=== PATIENT | female | born 1940 | race Caucasian/White ===

== ENCOUNTER 2016-10-21 12:04 | Inpatient (IN) | payer MEDICARE ==
[~2016-10-21] VITALS: Ht 175.3 cm; Wt 64.4 kg
[2016-10-21] MEDS ORDERED: IV NS 0.9% 500 ML IV ONE (12:30)
[2016-10-21] MEDS ORDERED: IV SET PRIMARY 1 EA INFUS.SET MC ONE (12:30)
[2016-10-21] MEDS ORDERED: IV NS 0.9% 500 ML BAG IV ONE (12:30)
[2016-10-21 12:55] LABS: ANION GAP 15 (5-14); CALCIUM, SERUM 8.7 mg/dL (8.5-10.1); CARBON DIOXIDE 27 mmol/L (21-32); CHLORIDE 104 mmol/L (98-107); GLUCOSE 75 mg/dL (74-106); POTASSIUM 4.4 mmol/L (3.5-5.1); SODIUM SERUM 141 mmol/L (136-145); UREA NITROGEN, BLOOD 12 mg/dL (7-18)
[2016-10-21 13:02] LABS: HEMATOCRIT 38 % (33-45); HEMOGLOBIN 12.6 g/dL (11.5-14.8); MEAN CORPUSCULAR HEMOGLOBIN 32 PG (26.0-33.0); MEAN CORPUSCULAR HGB CONC 33 g/dl (31.0-36.0); MEAN CORPUSCULAR VOLUME 97 fL (82-100); PLATELET COUNT (AUTO) 302 /CMM (150-450); WHITE BLOOD COUNT (AUTO) 8.8 K/uL (4.3-11.0)
[2016-10-21 13:03] LABS: ACETAMINOPHEN 8 ug/ml (10-30); ALANINE AMINOTRANSFERASE 54 U/L (12-78); ALBUMIN 3.1 g/dL (3.4-5.0); ASPARTATE AMINOTRANSFERASE 34 U/L (15-37); BILIRUBIN,DIRECT 0.5 mg/dL (0.0-0.2); BILIRUBIN,TOTAL 0.9 mg/dL (0.2-1.0); INDIRECT BILIRUBIN 0.4 mg/dL (0.0-1.1); TOTAL PROTEIN, SERUM 6.2 g/dL (6.4-8.2)
[2016-10-21 13:04] LABS: SALICYLATE < 0.2 mg/dL (2.8-20.0)
[2016-10-21 13:18] LABS: KETONES,URINE Trace (NEGATIVE); LEUKOCYTE ESTERASE ,URINE Negative (NEGATIVE); PH,URINE 5.5 (5.0-8.0)
[2016-10-21 13:21] LABS: ADD UA MICROSCOPIC YES
[2016-10-21 13:37] LABS: CANNABINOID, URINE POSITIVE (NEGATIVE); PHENCYCLIDINE SCREEN,URINE NEGATIVE (NEGATIVE)
[2016-10-21 14:28] LABS: LYMPHOCYTES % (MANUAL) 13 % (16-48); PLATELET ESTIMATE ADEQUATE
[2016-10-21 14:29] LABS: ANISOCYTOSIS 1+
[2016-10-21 14:37] LABS: ADD URINE CULTURE YES; RBC,URINE 0-3 /HPF (0-2); WBC,URINE 0-3 /HPF (0-3)
[2016-10-21 16:00] VITALS: BP 160/73
[2016-10-21] MEDS ORDERED: MAGNESIUM HYDROXIDE 30 ML UDC PO PRN (16:00)
[2016-10-21] MEDS ORDERED: MAG HYDROX/AL HYDROX/SIMETH 30 ML UDC PO PRN (16:00)
[2016-10-21] MEDS ORDERED: LORAZEPAM 0.5 MG TABLET PO PRN (16:00)
[2016-10-21] MEDS ORDERED: ATEN50TA PO (16:01)
[2016-10-21] MEDS ORDERED: PROGESTERONE PO (16:01)
[2016-10-21] MEDS ORDERED: LANS30CA56 PO (16:01)
[2016-10-21] MEDS ORDERED: OXYC-162 PO (16:01)
[2016-10-21] MEDS ORDERED: ESTR0.5T PO (16:01)
[2016-10-21 18:32] VITALS: BP 150/70
[2016-10-21] MEDS: ATENOLOL 50 MG TABLET PO SCH (18:32)
[2016-10-21 20:00] VITALS: BP_SYST 137; BP_SYST 157; BP_DIAS 71; BP_DIAS 88
[2016-10-21] MEDS: ZOLPIDEM TARTRATE 5 MG TABLET PO PRN (22:31)
[2016-10-22 08:00] VITALS: BP 146/62
[2016-10-22 08:18] LABS: ALBUMIN 2.4 g/dL (3.4-5.0); CALCIUM, SERUM 8.6 mg/dL (8.5-10.1); CREATININE 0.8 mg/dL (0.6-1.3); POTASSIUM 3.8 mmol/L (3.5-5.1)
[2016-10-22] MEDS ORDERED: PROGESTERONE,MICRONIZED 100 MG CAPSULE PO SCH ×2 (09:00)
[2016-10-22] MEDS ORDERED: ATENOLOL 50 MG TABLET PO SCH (09:00)
[2016-10-22] MEDS ORDERED: Medication Not On Formulary EA (Lansoprazole 30 MG) PO SCH (09:00)
[2016-10-22] MEDS: ESTRADIOL 1 MG TABLET PO SCH (10:04)
[2016-10-22] MEDS: PANTOPRAZOLE 40 MG TABLET.DR PO SCH (10:05)
[2016-10-22] MEDS: ATENOLOL 50 MG TABLET PO SCH ×2 (10:08→17:41)
[2016-10-22] MEDS ORDERED: Z GUARD REMEDY 2 OZ OINT TP PRN (11:00)
[2016-10-22] MEDS: CLOTRIMAZOLE/BETAMETASONE DIPROPIONATE 15 GM TUBE TP SCH ×2 (11:00→17:36)
[2016-10-22] MEDS: Z GUARD REMEDY 2 OZ OINT TP SCH ×2 (11:00→17:42)
[2016-10-22 16:00] VITALS: BP 134/73
[2016-10-22 18:32] VITALS: BP 134/73
[2016-10-22 18:44] VITALS: BP 134/73
[2016-10-22 20:00] VITALS: BP 147/67
[2016-10-22] MEDS: ZOLPIDEM TARTRATE 5 MG TABLET PO PRN (21:04)
[2016-10-22] MEDS ORDERED: CLONIDINE HCL 0.1 MG TABLET PO ONE (22:00)
[2016-10-23] MEDS: ZOLPIDEM TARTRATE 5 MG TABLET PO PRN ×2 (01:12→23:38)
[2016-10-23] MEDS: ACETAMINOPHEN 325 MG TABLET PO PRN ×2 (03:22→23:39)
[2016-10-23] MEDS: Z GUARD REMEDY 2 OZ OINT TP SCH ×2 (05:35→17:39)
[2016-10-23] MEDS: CLOTRIMAZOLE/BETAMETASONE DIPROPIONATE 15 GM TUBE TP SCH ×2 (05:36→17:40)
[2016-10-23 07:53] LABS: CHOLESTEROL 206 mg/dL (<200); HDL CHOLESTEROL 117 mg/dL (40-60); LDL 61 mg/dL (0-99); TRIGLYCERIDES 78 mg/dL (30-150)
[2016-10-23 08:00] VITALS: BP 135/53
[2016-10-23] MEDS: ATENOLOL 50 MG TABLET PO SCH ×2 (09:06→17:29)
[2016-10-23] MEDS: PANTOPRAZOLE 40 MG TABLET.DR PO SCH (09:06)
[2016-10-23] MEDS: DULOXETINE HCL 30 MG CAPSULE.DR PO SCH (09:06)
[2016-10-23] MEDS: ESTRADIOL 1 MG TABLET PO SCH (09:08)
[2016-10-23 16:09] VITALS: BP 139/66
[2016-10-23 19:55] VITALS: BP 132/67
[2016-10-24] MEDS: CLOTRIMAZOLE/BETAMETASONE DIPROPIONATE 15 GM TUBE TP SCH ×2 (05:34→17:12)
[2016-10-24] MEDS: Z GUARD REMEDY 2 OZ OINT TP SCH ×2 (05:34→17:12)
[2016-10-24 08:00] VITALS: BP 140/75
[2016-10-24] MEDS: DULOXETINE HCL 30 MG CAPSULE.DR PO SCH (08:44)
[2016-10-24] MEDS: PANTOPRAZOLE 40 MG TABLET.DR PO SCH (08:45)
[2016-10-24] MEDS: ATENOLOL 50 MG TABLET PO SCH ×2 (08:45→17:11)
[2016-10-24] MEDS: ESTRADIOL 1 MG TABLET PO SCH (08:49)
[2016-10-24] MEDS: ACETAMINOPHEN 325 MG TABLET PO PRN (12:23)
[2016-10-24 16:17] VITALS: BP 134/65
[2016-10-24] MEDS: NITROFURANTOIN/NITROFURAN MAC 100 MG CAPSULE PO SCH ×2 (17:13→21:46)
[2016-10-24 19:56] VITALS: BP 167/69
[2016-10-24] MEDS ORDERED: CLONIDINE HCL 0.1 MG TABLET ONE (22:37)
[2016-10-24] MEDS ORDERED: CLONIDINE HCL 0.1 MG TABLET PO ONE (23:00)
[2016-10-25] MEDS: Z GUARD REMEDY 2 OZ OINT TP SCH ×2 (06:00→17:13)
[2016-10-25] MEDS: CLOTRIMAZOLE/BETAMETASONE DIPROPIONATE 15 GM TUBE TP SCH ×2 (06:00→17:13)
[2016-10-25 08:10] VITALS: BP 151/80
[2016-10-25] MEDS: NITROFURANTOIN/NITROFURAN MAC 100 MG CAPSULE PO SCH ×2 (08:27→21:05)
[2016-10-25] MEDS: DULOXETINE HCL 30 MG CAPSULE.DR PO SCH (08:27)
[2016-10-25] MEDS: ATENOLOL 50 MG TABLET PO SCH ×2 (08:28→17:15)
[2016-10-25] MEDS: ESTRADIOL 1 MG TABLET PO SCH (08:29)
[2016-10-25] MEDS: PANTOPRAZOLE 40 MG TABLET.DR PO SCH (08:34)
[2016-10-25] MEDS ORDERED: LEVOFLOXACIN (750 MG) 750 MG TABLET PO SCH (13:00)
[2016-10-25 16:28] VITALS: BP 146/71
[2016-10-25 20:00] VITALS: BP 152/74
[2016-10-25 20:19] VITALS: BP 152/74
[2016-10-25] MEDS: ZOLPIDEM TARTRATE 5 MG TABLET PO PRN (23:42)
[2016-10-26] MEDS: CLOTRIMAZOLE/BETAMETASONE DIPROPIONATE 15 GM TUBE TP SCH (05:28)
[2016-10-26] MEDS: Z GUARD REMEDY 2 OZ OINT TP SCH (05:28)
[2016-10-26] MEDS: ACETAMINOPHEN 325 MG TABLET PO PRN (06:02)
[2016-10-26] MEDS: PANTOPRAZOLE 40 MG TABLET.DR PO SCH (06:37)
[2016-10-26] MEDS: NITROFURANTOIN/NITROFURAN MAC 100 MG CAPSULE PO SCH (08:26)
[2016-10-26 08:27] VITALS: BP 143/78
[2016-10-26] MEDS: DULOXETINE HCL 30 MG CAPSULE.DR PO SCH (08:27)
[2016-10-26] MEDS: ATENOLOL 50 MG TABLET PO SCH (08:27)
[2016-10-26] MEDS: ESTRADIOL 1 MG TABLET PO SCH (08:29)
== END 2016-10-26 11:15 | disposition home or self-care (01) | DRG 881 ==
LOC: ER 12:05 → GPS 14:54
PROVIDERS: ADMIT Psychiatry & Neurology Psychiatry; ATTEND Student in an Organized Health Care Education/Training Program
DX: F32.9 Major depressive disorder, single episode, unspecified (principal); N39.0 Urinary tract infection, site not specified; S32.10XA Unspecified fracture of sacrum, initial encounter for closed fracture; B96.20 Unspecified Escherichia coli [E. coli] as the cause of diseases classified elsewhere; F11.10 Opioid abuse, uncomplicated; F12.20 Cannabis dependence, uncomplicated; F10.10 Alcohol abuse, uncomplicated; W19.XXXA Unspecified fall, initial encounter; Y92.009 Unspecified place in unspecified non-institutional (private) residence as the place of occurrence of the external cause; R29.6 Repeated falls; I10 Essential (primary) hypertension; F03.90 Unspecified dementia, unspecified severity, without behavioral disturbance, psychotic disturbance, mood disturbance, and anxiety; Y90.5 Blood alcohol level of 100-119 mg/100 ml; R74.8 Abnormal levels of other serum enzymes; M17.0 Bilateral primary osteoarthritis of knee
CPT/HCPCS: 36415; 70450-TC; 71010-TC; 72220-TC; 80048-TC; 80053-TC; 80061-TC; 80076-TC; 80305; 81000-TC; 85025-TC; 87081-TC; 87086-TC; 87186-TC; A4606; A6402; G6038-TC; G6039-TC; G6040-TC; J7040; Z7610

== ENCOUNTER 2018-05-26 19:25 | Emergency (ER) | payer MEDICARE ==
[~2018-05-26] VITALS: Ht 152.4 cm; Wt 70.3 kg
[~2018-05-26 19:25] MED LIST: ATEN50TA PO; ESTR0.5T PO; LANS30CA56 PO; OXYC-162 PO; PROGESTERONE PO
[2018-05-26 19:30] VITALS: BP 148/64
--- NOTE | 2018-05-26 20:15 | NUR ---
CALLED [facility] FOR S TRANSPORT. TRIP #[id number]. ETA 20-30 MINUTES.
--- NOTE | 2018-05-26 20:46 | NUR ---
AMBULANCE TRANSPORT AT BEDSIDE REPORT GIVEN TO EMT.
== END 2018-05-26 21:00 | disposition home or self-care (01) ==
LOC: ER 19:26
DX: S00.12XA Contusion of left eyelid and periocular area, initial encounter (principal); I10 Essential (primary) hypertension; Z88.0 Allergy status to penicillin; Z88.2 Allergy status to sulfonamides; Z60.2 Problems related to living alone; W01.0XXA Fall on same level from slipping, tripping and stumbling without subsequent striking against object, initial encounter; Y93.89 Activity, other specified; Y92.89 Other specified places as the place of occurrence of the external cause; Y99.8 Other external cause status
CPT/HCPCS: 99283; A4606; Z7610

== ENCOUNTER 2019-08-14 05:04 | Inpatient (IN) | payer MEDICARE ==
[~2019-08-14] VITALS: Ht 175.3 cm; Wt 69.9 kg
[2019-08-14] MEDS ORDERED: IV NS 0.9% 500 ML IV ONE (05:30)
--- NOTE | 2019-08-14 05:36 | NUR ---
PT BIB RA FROM HOME DUE TO A FALL. PT LIVES BY HERSELF AT HOME AND [facility] WILL COME AND CHECK. NEIGHBORS CALLED 911 TO FIND PATIENT ON THE FLOOR ON HER BACK FOR ALMOST 36 HOURS,PER EMS REPORT. PT STATES THAT SHE HAD FALLEN AT HOME DUE TO LOSS OF BALANCE AND LANDED BUTLER FIRST AND LANDED ON HER BACK. LACERATION NOTED ON RIGHT BUTLER, NOT BLEEDING. PT STATES THAT SHE DID NOT HIT HER HEAD NOR HAD LOSS OF CONSCIOUSNESS. AAOX4. NO SOB. BREATHING EVENLY AND UNLABORED. CONNECTED TO MONITOR.
[2019-08-14 05:39] LABS: HEMATOCRIT 32 % (33-45); MONOCYTES # (AUTO) 0.5 /CMM (0.1-1.30); NEUTROPHILS # (AUTO) 0.1 /CMM (1.8-8.9)
[2019-08-14 05:44] LABS: BASOPHILS % (AUTO) 0.3 % (0.0-2.0); EOSINOPHILS % (AUTO) 9.6 % (0.0-6.0); HEMOGLOBIN 10.9 g/dL (11.5-14.8); MEAN CORPUSCULAR HGB CONC 34 g/dl (31.0-36.0); MEAN CORPUSCULAR VOLUME 113 fL (82-100); MONOCYTES % (AUTO) 26.5 % (2.0-12.0); NEUTROPHILS % (AUTO) 6.6 % (43.0-81.0); PLATELET COUNT (AUTO) 171 /CMM (150-450); RED BLOOD CELL COUNT(AUTO) 2.82 MIL/uL (4.0-5.2)
[2019-08-14 05:47] LABS: WHITE BLOOD COUNT (AUTO) 1.8 K/uL (4.3-11.0)
[2019-08-14 05:49] LABS: CALCIUM, SERUM 9.5 mg/dL (8.5-10.1); CARBON DIOXIDE 27 mmol/L (21-32); CHLORIDE 102 mmol/L (98-107); CREATININE 0.8 mg/dL (0.6-1.3); GLUCOSE 129 mg/dL (74-106); SODIUM SERUM 138 mmol/L (136-145); UREA NITROGEN, BLOOD 7 mg/dL (7-18)
[2019-08-14 05:50] LABS: POTASSIUM 2.7 mmol/L (3.5-5.1)
--- NOTE | 2019-08-14 06:05 | NUR ---
PEER FINANCIAL COUNSELOR AT BEDSIDE FOR XRAY
[2019-08-14 06:06] LABS: CREATINE KINASE, TOTAL 95 U/L (26-192)
[2019-08-14] MEDS ORDERED: POTASSIUM CHLORIDE 20 MEQ TAB.PRT.SR PO ONE ×2 (06:28→06:30)
[2019-08-14 06:38] LABS: MONOCYTES % (MANUAL) 10 % (0-11.0)
--- NOTE | 2019-08-14 06:39 | NUR ---
SPOKE W/ NURSING DISTRICT CUSTOMS DIRECTOR REGARDING PATIENT ADMISSION. AWAITING [facility]'S CALLBACK.
[2019-08-14 06:46] LABS: BAND % (MANUAL) 0 % (0.0-5.0); EOSINOPHILS % (MANUAL) 8 % (0-4); LYMPHOCYTES % (MANUAL) 71 % (16-48); NEUTROPHILS % (MANUAL) 11 (42-76)
[2019-08-14] MEDS ORDERED: ONDANSETRON HCL/PF 4 MG/2 ML VIAL IVP PRN (08:00)
[2019-08-14] MEDS ORDERED: Z GUARD REMEDY 2 OZ OINT TP PRN (08:00)
[2019-08-14] MEDS ORDERED: MAG HYDROX/AL HYDROX/SIMETH 30 ML UDC PO PRN (08:00)
[2019-08-14] MEDS ORDERED: ACETAMINOPHEN 325 MG TABLET PO PRN (08:00)
[2019-08-14 08:09] LABS: BILIRUBIN,URINE SMALL (NEGATIVE); BLOOD, URINE Small Ery/uL (NEGATIVE); KETONES,URINE Trace (NEGATIVE); LEUKOCYTE ESTERASE ,URINE Trace (NEGATIVE); NITRITE, URINE Positive (NEGATIVE); PH,URINE 5.5 (5.0-8.0); PROTEIN,URINE Trace mg/dl (NEGATIVE); UGLUCOSE Negative (NEGATIVE); UROBILINOGEN,URINE 0.2 EU/dL (0.2)
[2019-08-14 08:15] LABS: APPEARANCE,URINE HAZY (CLEAR); COLOR,URINE DARK YELLOW (YELLOW)
[2019-08-14 08:16] LABS: BACTERIA,URINE 2+ /HPF (None Seen); SQUAMOUS EPITHELIAL CELL,UR Moderate /HPF (None Seen)
--- NOTE | 2019-08-14 08:39 | NUR ---
REPORT GIVEN TO JERE OAKLEY RN FOR CARLOS.
[2019-08-14 09:00] VITALS: BP 137/60
[2019-08-14] MEDS ORDERED: Medication Not On Formulary EA (Lansoprazole 30 MG) PO SCH (09:00)
[2019-08-14] MEDS ORDERED: PROGESTERONE 100 MG PO SCH (09:00)
[2019-08-14 09:07] VITALS: BP 137/60
--- NOTE | 2019-08-14 09:10 | NUR ---
PATIENT TRANSFERRED TO ROOM 114-1 VIA ACLS PROTOCOL. PATIENT IN STABLE CONDITION.
--- NOTE | 2019-08-14 09:15 | NUR ---
RN NOTES ADMITTED PATIENT FROM ER, DIAGNOSIS S/P GLF AND WEAKNESS, AOX4, PER ER, PAREMEDICS FOUND PATIENT ON THE GROUND AT HOME FOR ALMOST 36 HOURS. ON ROOM AIR, NO SOB, RESPIRATION UNLABORED, SINUS RHYTHM ON MONITOR, LEFT AC G 18, FLUSHES WELL, SITE CLEAR. SEE NURSING NOTES FOR SKIN ISSUES, PHOTOS TAKEN, CARDIAC DIET. UNIT ORIENTATION DONE AND USE OF CALL LIGHT, INSTRUCTED TO CALL FOR ASSIST. BED LOW LOCKED, CALL LIGHT WITHIN REACH, WILL CONTINUE TO MONITOR.
[2019-08-14] MEDS: ESTRADIOL 1 MG TABLET PO SCH (10:09)
[2019-08-14] MEDS: ATENOLOL 50 MG TABLET PO SCH ×2 (10:09→16:49)
[2019-08-14] MEDS: HYDROCODONE/APAP 5/325MG 1 EACH TABLET PO PRN ×2 (10:28→21:56)
[2019-08-14] MEDS ORDERED: ESZO3TAB39 PO (12:25)
[2019-08-14] MEDS ORDERED: METH2.5T14 PO (12:25)
[2019-08-14] MEDS ORDERED: HYDR-4037 PO (12:25)
[2019-08-14] MEDS ORDERED: FURO20TA4 PO (12:25)
[2019-08-14] MEDS ORDERED: MELA5TAB PO (12:25)
[2019-08-14] MEDS ORDERED: MORPHINE SULFATE INJ 2 MG/ML DISP.SYRIN IV ONE (13:30)
[2019-08-14 16:00] VITALS: BP 125/87
[2019-08-14] MEDS: LEVOFLOXACIN (500MG) 500 MG TABLET PO SCH (16:48)
--- NOTE | 2019-08-14 18:28 | NUR ---
RN NOTES ALL NEEDS MET FOR NOW. PT RESTING IN BED, VITAL SIGNS STABLE. NOT IN ANY DISTRESS. NO OTHER SIGNIFICANT CHANGE IN CONDITION. CALL LIGHT WITHIN REACH, WILL ENDORSE TO NEXT SHIFT FOR CARLOS.
[2019-08-14 20:00] VITALS: BP 112/67
--- NOTE | 2019-08-14 20:37 | NUR ---
RN OPENING NOTES RECEIVED REPORT FROM NIMA YADAV. PATIENT A/A/O X2-3, ABLE TO VERBALIZE NEEDS. BREATHING EVEN & UNLABORED, TOLERATING ROOM AIR. DENIES ANY SOB OR DIFFICULTY BREATHING. ON TELE W/ SINUS SONY, HR 50S. LEFT AC IV INTACT & PATENT W/ DRESSING CDI, SALINE LOCKED. DENIES ANY PAIN OR DISCOMFORT @ THIS TIME. SAFETY MEASURES IN PLACE W/ SIDE RAILS UP & BED ALARM ON. CALL LIGHT PLACED WITHIN REACH & INSTRUCTED TO CALL FOR ASSISTANCE. WILL CONTINUE TO MONITOR.
[2019-08-14] MEDS ORDERED: Melatonin 5 MG PO SCH (22:00)
[2019-08-14] MEDS ORDERED: ESZOPICLONE PO SCH (22:00)
--- NOTE | 2019-08-14 22:50 | NUR ---
DIETARY ASSISTANT NOTES PATIENT HAVING DIFFICULTY SLEEPING & REQUESTED FOR AMBIEN. PER PATIENT, SHE TAKES AMBIEN @ HOME. SPOKE TO DR. MCCARTHY & RECEIVED NEW ORDER FOR AMBIEN 5MG PRN. NEW ORDER NOTED & CARRIED OUT.
[2019-08-15] VITALS: BP 109/58
[2019-08-15] MEDS: ZOLPIDEM TARTRATE 5 MG TABLET PO PRN ×2 (02:50→20:49)
[2019-08-15 04:00] VITALS: BP_SYST 109; BP_SYST 122; BP_DIAS 58; BP_DIAS 67
[2019-08-15 06:16] LABS: BASOPHILS % (AUTO) 0.2 % (0.0-2.0); EOSINOPHILS % (AUTO) 9.6 % (0.0-6.0); HEMATOCRIT 30 % (33-45); HEMOGLOBIN 10.2 g/dL (11.5-14.8); LYMPHOCYTES # (AUTO) 1.4 /CMM (0.8-4.8); LYMPHOCYTES % (AUTO) 54.5 % (20.0-44.0); MEAN CORPUSCULAR HGB CONC 34 g/dl (31.0-36.0); MEAN CORPUSCULAR VOLUME 113 fL (82-100); MONOCYTES # (AUTO) 0.7 /CMM (0.1-1.30); NEUTROPHILS # (AUTO) 0.2 /CMM (1.8-8.9); NEUTROPHILS % (AUTO) 8.7 % (43.0-81.0); PLATELET COUNT (AUTO) 273 /CMM (150-450); RED BLOOD CELL COUNT(AUTO) 2.62 MIL/uL (4.0-5.2); WHITE BLOOD COUNT (AUTO) 2.6 K/uL (4.3-11.0)
[2019-08-15 06:55] LABS: BILIRUBIN,TOTAL 0.4 mg/dL (0.2-1.0); CALCIUM, SERUM 8.4 mg/dL (8.5-10.1); CREATININE 0.9 mg/dL (0.6-1.3); PHOSPHORUS 1.9 mg/dL (2.5-4.9)
[2019-08-15 06:56] LABS: ALBUMIN 2.3 g/dL (3.4-5.0); BILIRUBIN,DIRECT 0.2 mg/dL (0.0-0.2); TOTAL PROTEIN, SERUM 5.8 g/dL (6.4-8.2)
[2019-08-15 07:03] LABS: MAGNESIUM 1.1 mg/dL (1.8-2.4); POTASSIUM 2.8 mmol/L (3.5-5.1)
[2019-08-15 07:13] LABS: THYROID STIMULATING HORMONE 3.665 uIU/mL (0.358-3.74)
[2019-08-15 07:41] LABS: BAND % (MANUAL) 2 % (0.0-5.0); EOSINOPHILS % (MANUAL) 10 % (0-4); LYMPHOCYTES % (MANUAL) 48 % (16-48); MONOCYTES % (MANUAL) 28 % (0-11.0); NEUTROPHILS % (MANUAL) 12 (42-76)
[2019-08-15 08:00] VITALS: BP 134/71
--- NOTE | 2019-08-15 08:00 | NUR ---
TELE1/RN AM SHIFT INITIAL NOTES RECEIVED PT AWAKE IN BED, A/O X 2-3 FORGETFUL AT TIMES, DENIES ANY SYMPTOMS, NO ACUTE CHANGE OF CONDITION NOTED. ON ROOM AIR SATURATING @ 98%, RESPIRATIONS EVEN & UNLABORED, LUNG SOUNDS CLEAR. ON TELE WITH SINUS RHYTHM, HR 70. IV SITE FLUSHED, PATENT, SL. PT PLACED ON NPO AT THIS TIME FOR A COMPLETE ABDOMINAL ULTRASOUND. PT IS AWARE OF THE PROCEDURE, COOPERATIVE, COMFORTABLE. SCHEDULED AM MEDS TO BE GIVEN AFTER PROCEDURE. CL WITHIN REACHED AND SAFETY MAINTAINED. ON GOING MONITORING.
[2019-08-15] MEDS: PANTOPRAZOLE 40 MG TABLET.DR PO SCH (09:13)
[2019-08-15] MEDS: ATENOLOL 50 MG TABLET PO SCH ×2 (09:14→16:18)
[2019-08-15] MEDS: MAGNESIUM OXIDE 400 MG TABLET PO SCH ×2 (09:14→16:18)
[2019-08-15] MEDS: FUROSEMIDE 20 MG TABLET PO SCH (09:14)
[2019-08-15] MEDS: K PHOS NEUTRAL 250 MG TABLET PO SCH ×4 (09:14→20:48)
[2019-08-15] MEDS: ESTRADIOL 1 MG TABLET PO SCH (09:14)
[2019-08-15] MEDS: Magnesium 1GM/D5W 100ML PREMIX 100 ML IV SCH ×2 (09:17→11:04)
[2019-08-15] MEDS ORDERED: POTASSIUM CHLORIDE 20 MEQ TAB.PRT.SR PO ONE (09:35)
[2019-08-15 12:00] VITALS: BP 130/68
--- NOTE | 2019-08-15 12:00 | NUR ---
TELE1/RN NOON ROUNDS NO CHANGE OF CONDITION. MONITORING CONTINUED.
[2019-08-15 15:06] LABS: CHLORIDE,URINE RANDOM 46 mmol/L (55-125); POTASSIUM RNDM,URINE 21 mmol/L (25-125); URINE SODIUM, RANDOM 23 mmol/l (40-220)
[2019-08-15 15:54] LABS: OSMOLALITY,URINE 287 mOS/kg (340-1090)
[2019-08-15 16:00] VITALS: BP 128/72
--- NOTE | 2019-08-15 16:00 | NUR ---
TELE1/RN ROUNDS - Mook NORRIS NP PT SEEN & EXAMINED BY LASHAY NORRIS, NO NEW ORDER RECEIVED.
[2019-08-15] MEDS: LEVOFLOXACIN (500MG) 500 MG TABLET PO SCH (16:18)
[2019-08-15] MEDS: HYDROCODONE/APAP 5/325MG 1 EACH TABLET PO PRN (16:19)
--- NOTE | 2019-08-15 18:30 | NUR ---
TELE1/RN AFTERNOON ROUNDS PM CARE PROVIDED. NO CHANGE OF CONDITION. MONITORING CONTINUED.
--- NOTE | 2019-08-15 19:35 | NUR ---
TELE1/RN AM SHIFT END NOTES ALL NEEDS MET. NO ACUTE CHANGE OF CONDITION NOTED DURING THE SHIFT. PT ENDORSED TO PM NURSE TO CONTINUE CARE. CL WITHIN REACHED AND SAFETY MAINTAINED.
[2019-08-15 20:00] VITALS: BP_SYST 127; BP_SYST 92; BP_DIAS 43; BP_DIAS 84
--- NOTE | 2019-08-15 20:00 | NUR ---
RECEIVED PT AWAKE IN BED, A/O X 2-3 FORGETFUL AT TIMES, DENIES ANY SYMPTOMS, NO ACUTE CHANGE OF CONDITION NOTED. ON ROOM AIR SATURATING @ 98%, RESPIRATIONS EVEN & UNLABORED, LUNG SOUNDS CLEAR. ON TELE WITH SINUS RHYTHM, HR 69 IV SITE FLUSHED, PATENT, SL. PT IS COOPERATIVE, COMFORTABLE. MEDS GIVEN ORDERED CL WITHIN REACHED AND SAFETY MAINTAINED. ON GOING MONITORING N, KEPT PTS CLEAN DRY AND COMFORTABLE.
[2019-08-16] VITALS: BP 126/55
[2019-08-16 04:00] VITALS: BP 107/50
--- NOTE | 2019-08-16 06:53 | NUR ---
teletypesetter monitor notes pts in bed awake with period of confussion , no sob no distress noted , will endorse to rn day shift for continuity of care.
[2019-08-16 07:05] LABS: BASOPHILS % (AUTO) 0.1 % (0.0-2.0); EOSINOPHILS % (AUTO) 5.5 % (0.0-6.0); HEMATOCRIT 29 % (33-45); LYMPHOCYTES # (AUTO) 1.5 /CMM (0.8-4.8); LYMPHOCYTES % (AUTO) 46.1 % (20.0-44.0); MEAN CORPUSCULAR HGB CONC 35 g/dl (31.0-36.0); MEAN CORPUSCULAR VOLUME 112 fL (82-100); NEUTROPHILS # (AUTO) 0.5 /CMM (1.8-8.9); NEUTROPHILS % (AUTO) 16.3 % (43.0-81.0); PLATELET COUNT (AUTO) 388 /CMM (150-450); RED BLOOD CELL COUNT(AUTO) 2.58 MIL/uL (4.0-5.2); WHITE BLOOD COUNT (AUTO) 3.2 K/uL (4.3-11.0)
--- NOTE | 2019-08-16 07:30 | NUR ---
RN AM NOTES PT IN BED, AOX4, ON ROOM AIR, NO SOB, RESPIRATION UNLABORED, SINUS RHYTHM TO SINUS SONY, HR 59, DENIES PAIN, LEFT HAND G22 FLUSHES WELL, SITE CLEAR. SEE NURSING NOTES FOR SKIN ISSUES, CARDIAC DIET. CALL LIGHT WITHIN REACH, INSTRUCTED TO CALL FOR ASSIST. FOR PHYSICAL THERAPY TODAY. BED LOW LOCKED, BED LOW LOCKED, WILL CONTINUE TO MONITOR.
[2019-08-16 07:43] LABS: BAND % (MANUAL) 3 % (0.0-5.0); EOSINOPHILS % (MANUAL) 3 % (0-4); LYMPHOCYTES % (MANUAL) 46 % (16-48); MONOCYTES % (MANUAL) 27 % (0-11.0); NEUTROPHILS % (MANUAL) 19 (42-76); REACTIVE LYMPHOCYTES 2 % (0-0)
[2019-08-16] MEDS: PANTOPRAZOLE 40 MG TABLET.DR PO SCH (07:43)
[2019-08-16 07:46] LABS: ALBUMIN 2.3 g/dL (3.4-5.0); BILIRUBIN,DIRECT 0.1 mg/dL (0.0-0.2); BILIRUBIN,TOTAL 0.3 mg/dL (0.2-1.0); CALCIUM, SERUM 8.3 mg/dL (8.5-10.1); CREATININE 0.8 mg/dL (0.6-1.3); PHOSPHORUS 3.1 mg/dL (2.5-4.9); POTASSIUM 3.6 mmol/L (3.5-5.1); TOTAL PROTEIN, SERUM 5.7 g/dL (6.4-8.2)
[2019-08-16 07:55] LABS: MAGNESIUM 1.3 mg/dL (1.8-2.4)
[2019-08-16 08:00] VITALS: BP 112/67
[2019-08-16 08:06] LABS: IMMUNOGLOBULIN A, SERUM 353 mg/dL (64-422); IMMUNOGLOBULIN G, SERUM 1040 mg/dL (700-1600); IMMUNOGLOBULIN M, SERUM 273 mg/dL (26-217)
[2019-08-16] MEDS ORDERED: MAGNESIUM OXIDE 400 MG TABLET PO ONE (08:30)
[2019-08-16] MEDS: K PHOS NEUTRAL 250 MG TABLET PO SCH ×4 (08:57→21:16)
[2019-08-16] MEDS: FUROSEMIDE 20 MG TABLET PO SCH (08:57)
[2019-08-16] MEDS: Magnesium 1GM/D5W 100ML PREMIX 100 ML IV SCH ×4 (08:57→12:07)
[2019-08-16] MEDS: ATENOLOL 50 MG TABLET PO SCH ×2 (08:58→16:26)
[2019-08-16] MEDS: ESTRADIOL 1 MG TABLET PO SCH (08:59)
[2019-08-16] MEDS ORDERED: Magnesium 1GM/D5W 100ML PREMIX 100 ML IV SCH (09:30)
--- NOTE | 2019-08-16 09:30 | NUR ---
RN NOTES DUE MEDS GIVEN
[2019-08-16] MEDS: CYANOCOBALAMIN 1,000 MCG/ML VIAL IM SCH (10:04)
[2019-08-16 10:08] LABS: *ANA ANTI-CENTROMERE B AB <0.2 AI (0.0-0.9); *ANA ANTI-DNA(DS) AB, QN <1 IU/mL (0-9); *ANA ANTI-JO-1 <0.2 AI (0.0-0.9); *ANA ANTICHROMATIN ANTIBODY <0.2 AI (0.0-0.9); *ANA RNP ANTIBODIES <0.2 AI (0.0-0.9); *ANA SJOGREN'S ANTI-SS-A <0.2 AI (0.0-0.9); *ANA SJOGREN'S ANTI-SS-B <0.2 AI (0.0-0.9); *ANAANTI-SCLERODERMA-70 AB <0.2 AI (0.0-0.9); *ANASMITH AB <0.2 AI (0.0-0.9)
[2019-08-16 11:08] LABS: *SPE A/G RATIO 0.9 (0.7-1.7); *SPE ALBUMIN 2.5 g/dL (2.9-4.4); *SPE ALPHA-1-GLOBULIN 0.2 g/dL (0.0-0.4); *SPE ALPHA-2-GLOBULIN 0.6 g/dL (0.4-1.0); *SPE GLOBULIN, TOTAL 2.9 g/dL (2.2-3.9); *SPE M-SPIKE Not Observed g/dL (Not Observed); *SPEGAMMA GLOBULIN 1.1 g/dL (0.4-1.8)
[2019-08-16 12:00] VITALS: BP 102/59
[2019-08-16] MEDS: HYDROCODONE/APAP 10/325MG 1 EA TABLET PO PRN (15:47)
[2019-08-16 16:00] VITALS: BP 116/64
[2019-08-16] MEDS: LEVOFLOXACIN (500MG) 500 MG TABLET PO SCH (16:26)
[2019-08-16] MEDS ORDERED: CYANOCOBALAMIN 1,000 MCG/ML VIAL IM SCH (19:00)
[2019-08-16 20:00] VITALS: BP 103/56
[2019-08-16] MEDS: FOLIC ACID 1 MG TABLET PO SCH (21:16)
[2019-08-16] MEDS: ZOLPIDEM TARTRATE 5 MG TABLET PO PRN (21:36)
[2019-08-16] MEDS ORDERED: MAGNESIUM OXIDE 400 MG TABLET PO SCH (22:00)
[2019-08-17] VITALS: BP 99/52
[2019-08-17 04:00] VITALS: BP 104/57
[2019-08-17 07:31] LABS: BASOPHILS % (AUTO) 0.3 % (0.0-2.0); EOSINOPHILS % (AUTO) 3.5 % (0.0-6.0); HEMATOCRIT 28 % (33-45); HEMOGLOBIN 9.4 g/dL (11.5-14.8); LYMPHOCYTES # (AUTO) 1.5 /CMM (0.8-4.8); LYMPHOCYTES % (AUTO) 36.1 % (20.0-44.0); MEAN CORPUSCULAR HGB CONC 34 g/dl (31.0-36.0); MEAN CORPUSCULAR VOLUME 114 fL (82-100); MONOCYTES # (AUTO) 1.4 /CMM (0.1-1.30); MONOCYTES % (AUTO) 34.2 % (2.0-12.0); NEUTROPHILS # (AUTO) 1.1 /CMM (1.8-8.9); NEUTROPHILS % (AUTO) 25.9 % (43.0-81.0); PLATELET COUNT (AUTO) 476 /CMM (150-450); RED BLOOD CELL COUNT(AUTO) 2.43 MIL/uL (4.0-5.2); WHITE BLOOD COUNT (AUTO) 4.1 K/uL (4.3-11.0)
[2019-08-17 07:37] LABS: CREATININE 0.9 mg/dL (0.6-1.3); MAGNESIUM 1.8 mg/dL (1.8-2.4); PHOSPHORUS 3.7 mg/dL (2.5-4.9); POTASSIUM 3.1 mmol/L (3.5-5.1)
[2019-08-17] MEDS: PANTOPRAZOLE 40 MG TABLET.DR PO SCH (07:41)
--- NOTE | 2019-08-17 07:44 | NUR ---
RN NOTES PATIENT RECEIVED IN BED A/0 X 3. PATIENT ON ROOM AIR SATURATION 89% ASYMPTOMATIC. PATIENT DENIES SOB/ . PATIENT ECOURAGED TO PUT NC 2L ON. PATIENT REFUSED. AGGREED TO PUT IT ON AFTER BREAKFAST. PATIETN STILL ASYMPTOMATIC. PATIENT HR 67 AND DENIES CHEST PAIN. PATIENT HAS 22 G IN LFT HAND PATENT AND INTACT. SAFETY PRECAUTIONS IN PLACE. CALL LIGHT WITHIN REACH. RN WILL CONTINUE TO MONITOR FOR CHANGES.
[2019-08-17 08:00] VITALS: BP 100/61
[2019-08-17] MEDS: FOLIC ACID 1 MG TABLET PO SCH (08:21)
[2019-08-17] MEDS: K PHOS NEUTRAL 250 MG TABLET PO SCH (08:21)
[2019-08-17] MEDS: FUROSEMIDE 20 MG TABLET PO SCH (08:21)
[2019-08-17] MEDS: ESTRADIOL 1 MG TABLET PO SCH (08:21)
[2019-08-17] MEDS: CYANOCOBALAMIN 1,000 MCG/ML VIAL IM SCH (08:26)
[2019-08-17 08:27] VITALS: BP 100/61
[2019-08-17] MEDS: ATENOLOL 50 MG TABLET PO SCH (08:27)
[2019-08-17] MEDS: HYDROCODONE/APAP 10/325MG 1 EA TABLET PO PRN (08:31)
[2019-08-17 08:38] LABS: EOSINOPHILS % (MANUAL) 2 % (0-4); LYMPHOCYTES % (MANUAL) 46 % (16-48); MONOCYTES % (MANUAL) 20 % (0-11.0); MYELOCYTES % 1 % (0-0); NEUTROPHILS % (MANUAL) 31 (42-76)
[2019-08-17] MEDS ORDERED: MAGN400T26 PO (10:58)
[2019-08-17] MEDS ORDERED: LEVO500T2 PO (10:58)
[2019-08-17] MEDS ORDERED: PHOS250T2 PO (10:58)
--- NOTE | 2019-08-17 12:13 | NUR ---
RN NOTES REPORT GIVEN MAGDA AT [facility] ([phone])
[2019-08-17] MEDS ORDERED: POTASSIUM CHLORIDE 20 MEQ TAB.PRT.SR PO SCH (12:30)
--- NOTE | 2019-08-17 14:25 | NUR ---
RN NOTES PATIENT DISCHARGE. ALL CONCERNS AND QUESTIONS ADDRESSED APPROPRIATELY. SKIN ASSESSED AND PICTURES TAKEN. ALL MEDICATION AND DISCHARGE INSTRUCTION GIVEN TO THE NEPHEWS AT BEDSIDE. ALL BELONGINGS ACCOUNTED AND RETURNED TO PATIENT, SOME CLOTHING WORN BY THE PATIENT. IV AND ID BAND REMOVED. PATIENT WHEELED OUT OF THE UNIT BY THE CUSTOMER SOLUTIONS TEAMMATE, ACCOMPANIED BY THE NEPHEWS.
[2019-08-19] MEDS ORDERED: METHOTREXATE SODIUM (2.5MG) 2.5 MG TABLET PO SCH (09:00)
[2019-08-20 13:07] LABS: BETA-2 MICROGLOBULIN, SERUM 2.7 mg/L (0.6-2.4)
== END 2019-08-17 14:25 | disposition home or self-care (01) | DRG 689 ==
LOC: ER 05:06 → TELE1 08:23
PROVIDERS: ADMIT Registered Nurse; ATTEND Registered Nurse
DX: N39.0 Urinary tract infection, site not specified (principal); D61.811 Other drug-induced pancytopenia; E87.6 Hypokalemia; D53.9 Nutritional anemia, unspecified; I10 Essential (primary) hypertension; S81.811A Laceration without foreign body, right lower leg, initial encounter; W18.30XA Fall on same level, unspecified, initial encounter; K21.9 Gastro-esophageal reflux disease without esophagitis; G89.4 Chronic pain syndrome; T45.1X5A Adverse effect of antineoplastic and immunosuppressive drugs, initial encounter; Y92.89 Other specified places as the place of occurrence of the external cause; Z88.2 Allergy status to sulfonamides; Z88.0 Allergy status to penicillin; R53.1 Weakness; B96.89 Other specified bacterial agents as the cause of diseases classified elsewhere; R55 Syncope and collapse; T50.2X5A Adverse effect of carbonic-anhydrase inhibitors, benzothiadiazides and other diuretics, initial encounter; Z96.651 Presence of right artificial knee joint; K76.0 Fatty (change of) liver, not elsewhere classified; N28.1 Cyst of kidney, acquired; E83.42 Hypomagnesemia; Z91.81 History of falling; M06.9 Rheumatoid arthritis, unspecified; K83.8 Other specified diseases of biliary tract; E53.8 Deficiency of other specified B group vitamins; D47.2 Monoclonal gammopathy
CPT/HCPCS: 36415; 71045-TC; 76700-TC; 80048-TC; 80061-TC; 80076-TC; 81000-TC; 82232; 82247-TC; 82248-TC; 82436-TC; 82550-TC; 82728-TC; 82784; 83540-TC; 83735-TC; 83935-TC; 84100-TC; 84133-TC; 84155; 84165; 84300-TC; 84443-TC; 84484-TC; 85025-TC; 86140-TC; 86225; 86235; 86334; 86431-TC; 87040-TC; 87081-TC; 87086-TC; 93307-TC; 93880-TC; 97116-TC; 97530-TC; G0378; J2270; J3420; J3475; J7040; J7050

== ENCOUNTER 2020-02-20 11:19 | Inpatient (IN) | payer MEDICARE ==
[~2020-02-20] VITALS: Ht 175.3 cm; Wt 71.7 kg
[~2020-02-20 11:19] MED LIST changes: -ATEN50TA PO; -ESTR0.5T PO; +ESZO3TAB39 PO; +FURO20TA4 PO; +HYDR-4037 PO; -LANS30CA56 PO; +LEVO500T2 PO; +MAGN400T26 PO; +MELA5TAB PO; +METH2.5T14 PO; -OXYC-162 PO; +PHOS250T2 PO; -PROGESTERONE PO
--- NOTE | 2020-02-20 11:20 | NUR ---
PT BIBRA 99 FROM HOME C/O BILATERAL ARM PAIN S/P TRIP AND FALL LAST NIGHT, PT IS AAOX3, NOT IN RESPIRATORY DISTRESS, V/S STABLE, KEPT RESTED AND COMFORTABLE, WILL CONTINUE TO MONITOR.
--- NOTE | 2020-02-20 11:29 | NUR ---
SEEN AND EXAMINED BY .
[2020-02-20] MEDS ORDERED: IV NS 0.9% 500 ML BAG IV ONE (11:30)
--- NOTE | 2020-02-20 11:35 | NUR ---
PT IV LINE ESTABLISHED BLOOD DRAWN AND SENT TO LAB.
--- NOTE | 2020-02-20 11:45 | NUR ---
URINE SPECIMEN COLLECTED VIA STRAIGHT CATH AND SENT TO LAB.
[2020-02-20 11:57] LABS: BASOPHILS % (AUTO) 0.4 % (0.0-2.0); EOSINOPHILS % (AUTO) 0.7 % (0.0-6.0); HEMATOCRIT 48 % (33-45); LYMPHOCYTES # (AUTO) 1.1 /CMM (0.8-4.8); MEAN CORPUSCULAR HGB CONC 33 g/dl (31.0-36.0); MEAN CORPUSCULAR VOLUME 110 fL (82-100); MONOCYTES # (AUTO) 0.7 /CMM (0.1-1.30); NEUTROPHILS # (AUTO) 6.4 /CMM (1.8-8.9); NEUTROPHILS % (AUTO) 76.9 % (43.0-81.0); PLATELET COUNT (AUTO) 363 /CMM (150-450); RED BLOOD CELL COUNT(AUTO) 4.41 MIL/uL (4.0-5.2); WHITE BLOOD COUNT (AUTO) 8.4 K/uL (4.3-11.0)
--- NOTE | 2020-02-20 12:00 | NUR ---
PT IS WHEELED TO CT SCAN VIA [facility].
[2020-02-20 12:10] LABS: APPEARANCE,URINE Cloudy (CLEAR); BILIRUBIN,URINE MODERATE (NEGATIVE); BLOOD, URINE Negative Ery/uL (NEGATIVE); KETONES,URINE 15 (NEGATIVE); LEUKOCYTE ESTERASE ,URINE Negative (NEGATIVE); NITRITE, URINE Negative (NEGATIVE); PROTEIN,URINE 100 mg/dl (NEGATIVE); UGLUCOSE Negative (NEGATIVE)
[2020-02-20 12:11] LABS: CALCIUM, SERUM 10.1 mg/dL (8.5-10.1); CARBON DIOXIDE 21 mmol/L (21-32); CHLORIDE 106 mmol/L (98-107); COLOR,URINE Dark Yellow (YELLOW); CREATININE 1.2 mg/dL (0.6-1.3); GLUCOSE 138 mg/dL (74-106); POTASSIUM 3.8 mmol/L (3.5-5.1); SODIUM SERUM 142 mmol/L (136-145); UREA NITROGEN, BLOOD 29 mg/dL (7-18)
[2020-02-20 12:17] LABS: ALANINE AMINOTRANSFERASE 61 U/L (12-78); ALBUMIN 3.2 g/dL (3.4-5.0); ALCOHOL, BLOOD < 3 mg/dL (0-0); ALKALINE PHOSPHATASE 158 U/L (46-116); ASPARTATE AMINOTRANSFERASE 40 U/L (15-37); BACTERIA,URINE Many /HPF (None Seen); BILIRUBIN,DIRECT 0.2 mg/dL (0.0-0.2); BILIRUBIN,TOTAL 0.8 mg/dL (0.2-1.0); MUCUS,URINE Few /LPF (None Seen); SQUAMOUS EPITHELIAL CELL,UR Moderate /HPF (None Seen); TOTAL PROTEIN, SERUM 7.6 g/dL (6.4-8.2)
[2020-02-20] MEDS ORDERED: CEFTRIAXONE 1GM BAG (ER ONLY) 1 GM/50 ML PIGGYBACK IV ONE (13:30)
[2020-02-20] MEDS ORDERED: ATEN25TA PO (13:41)
[2020-02-20] MEDS ORDERED: POTA10CA43 PO (13:41)
[2020-02-20] MEDS ORDERED: CEFTRIAXONE 1GM BAG (ER ONLY) 50 ML IV ONE (13:41)
[2020-02-20] MEDS ORDERED: ACETAMINOPHEN 325 MG TABLET ONE (13:47)
[2020-02-20] MEDS ORDERED: ACETAMINOPHEN 650 MG/20.3 ML UDC PO ONE (14:00)
--- NOTE | 2020-02-20 14:50 | NUR ---
REPORT GIVEN TO LEIF BANKS FOR CARLOS.
--- NOTE | 2020-02-20 15:00 | NUR ---
RN ADMITTING NOTES RECEIVED PT ON THE UNIT AT TIME. REPORT GIVEN BY LEIF GRANDE. PT TRANSPORTED TO UNIT ON A GURNEY. AO X3. STABLE VITAL SIGNS. PT ABLE TO VERBALIZE NEEDS. NO SOB NOTED. NO S/S OF ANY ACUTE DISTRESS NOTED. RESPIRATIONS ARE EVEN AND UNLABORED WITH EQUAL RISE AND FALL IN CHEST. IV ACCESS TO RAC G# 18 AND LFA G#20 BOTH, INTACT AND PATENT. PT HAS SACRAL WOUND/REDNESS, BILATERAL HAND WOUNDS, BILATERAL LEG SCABS/BRUISES. BELONGINGS ACCOUNTED FOR, PICTURES TAKEN AND FILED. BED IN LOWEST LOCKED, SIDE RAILS UP, BED ALARM ON, HOB ELEVATED TO SEMI FOWLERS POSITION, CALL LIGHTS WITHIN REACH. WILL CONTINUE TO MONITOR
[2020-02-20 16:00] VITALS: BP 112/64
[2020-02-20] MEDS ORDERED: ONDANSETRON HCL/PF 4 MG/2 ML VIAL IVP PRN (16:00)
[2020-02-20] MEDS ORDERED: Z GUARD REMEDY 2 OZ OINT TP PRN (16:00)
[2020-02-20] MEDS ORDERED: MAGNESIUM HYDROXIDE 30 ML UDC PO PRN (16:00)
[2020-02-20] MEDS: ENOXAPARIN SODIUM 40 MG/0.4 ML DISP.SYRIN SQ SCH (17:56)
--- NOTE | 2020-02-20 19:02 | NUR ---
MS RN ADMITTING NOTES PT REMAINED STABLE THROUGHOUT SHIFT. PT KEPT CLEAN. CARE MANAGEMENT PROVIDED PER ORDER. BED IN LOWEST LOCKED, SIDE RAILS UP, BED ALARM ON, HOB ELEVATED TO SEMI FOWLERS POSITION, CALL LIGHTS WITHIN REACH. WILL ENDORSE TO PAGEANT DIRECTOR NURSE FOR CARLOS
--- NOTE | 2020-02-20 19:40 | NUR ---
MS RN NOTES RECEIVED ON BED CALM AND QUIET,BREATHING REGULAR,NOT IN ANY FORM OF DISTRESS.SALINE LOCK LEFT AC INTACT AND PATENT.IVF NS AT 75ML/HR RATE WILL START.ALERT X3-4,ABLE TO VERBALIZED NEEDS.FALL PRECAUTION OBSERVED.BED ON LOWEST POSITION AND LOCKED.CALL LIGHT IN REACH,NEEDS ANTICIPATED.
[2020-02-20 20:00] VITALS: BP 147/70
[2020-02-20] MEDS: IV NS 0.9% 1,000 ML IV PRN (20:22)
--- NOTE | 2020-02-20 20:56 | NUR ---
MS RN NOTES STARTED ON IVF NS AT 75ML/HR RATE.
--- NOTE | 2020-02-20 21:58 | NUR ---
MS YADAV NOTES OFFERED ORANGE JUICE WITH SUGAR BUT REFUSED,MEDICATED WITH D50 1 AMPULE IVP PER PROTOCOL Addendum: 02/20/20 at 2307 by MONISHA LYNCH RN WRONG NOTES,NOT FOR THIS PATIENT
--- NOTE | 2020-02-20 22:00 | NUR ---
MS YADAV NOTES ACCU-CHECK BLOOD SUGAR CHECK 42,ASYMPTOMATIC,ALERT,ORIENTED X2-3.FARSI SPEAKING. Addendum: 02/20/20 at 2308 by MONISHA LYNCH RN WRONG NOTES,NOT FOR THIS PATIENT
--- NOTE | 2020-02-20 22:45 | NUR ---
MS YADAV NOTES BLOOD SUGAR RE CHECK AND IT WAS 197.ALERT,VERBALLY RESPONSIVE. Addendum: 02/20/20 at 2308 by MONISHA LYNCH RN WRONG NOTES,NOT FOR THIS PATIENT
--- NOTE | 2020-02-20 22:50 | NUR ---
MS RN NOTES BY ACCIDENT,BLOOD SUGAR CHECKED WAS 147,NO INSULIN COVERAGE.
[2020-02-21] VITALS (8 sets, daily range): BP systolic 121–166; BP diastolic 61–90
--- NOTE | 2020-02-21 01:00 | NUR ---
PATIENT TRANSPORTER NOTES SOUND ASLEEP.KEPT WARM AND COMFORTABLE.
--- NOTE | 2020-02-21 06:15 | NUR ---
DESIGNER WRITER NOTES REFUSED MORNING LAB BLOOD DRAW.
--- NOTE | 2020-02-21 06:44 | NUR ---
PIPE AND TANK FABRICATOR NOTES FAIRLY RESTED AT NIGHT. MUCH POSSIBLE,PATIENT DOESNT WANT TO BE BOTHER WHEN SHE'S SLEEPING.AFEBRILE,PAIN TOLERABLE,IN NO ACUTE DISTRESS.WILL ENDORSE TO DAY NURSE FOR CARLOS.
--- NOTE | 2020-02-21 07:28 | NUR ---
received patient in bed
--- NOTE | 2020-02-21 07:30 | NUR ---
LINE SERVER OPENING NOTES RECEIVED PATIENT IN BED, ASLEEP. PATIENT IS ON ROOM AIR; BREATHING IS EVEN AND UNLABORED. NO SIGNS OF PAIN SUCH FACIAL GRIMACING, MOANING OR GUARDING. EXTERNAL MONITOR WITH A READING OF SR 97. LFA IV ACCESS PRESENT AND INTACT INFUSING NS @ 75 MLS/HR. SAFETY PRECAUTIONS IN PLACE; BED IN LOW POSITION AND LOCKED, RAILS UP X2, CALL LIGHT WITHIN REACH. WILL CONTINUE TO MONITOR PATIENT.
[2020-02-21] MEDS: ATENOLOL 25 MG TABLET PO SCH (09:01)
[2020-02-21 09:13] LABS: BASOPHILS # (AUTO) 0.1 /CMM (0.0-0.2); BASOPHILS % (AUTO) 1.1 % (0.0-2.0); EOSINOPHILS % (AUTO) 1.3 % (0.0-6.0); HEMATOCRIT 39 % (33-45); HEMOGLOBIN 13.1 g/dL (11.5-14.8); LYMPHOCYTES # (AUTO) 1.4 /CMM (0.8-4.8); LYMPHOCYTES % (AUTO) 22.5 % (20.0-44.0); MEAN CORPUSCULAR HGB CONC 34 g/dl (31.0-36.0); MEAN CORPUSCULAR VOLUME 109 fL (82-100); MONOCYTES # (AUTO) 0.6 /CMM (0.1-1.30); MONOCYTES % (AUTO) 9.9 % (2.0-12.0); NEUTROPHILS # (AUTO) 4.1 /CMM (1.8-8.9); NEUTROPHILS % (AUTO) 65.2 % (43.0-81.0); PLATELET COUNT (AUTO) 295 /CMM (150-450); RED BLOOD CELL COUNT(AUTO) 3.58 MIL/uL (4.0-5.2); WHITE BLOOD COUNT (AUTO) 6.3 K/uL (4.3-11.0)
[2020-02-21 09:52] LABS: CALCIUM, SERUM 8.9 mg/dL (8.5-10.1); CREATININE 1.3 mg/dL (0.6-1.3); MAGNESIUM 1.4 mg/dL (1.8-2.4); PHOSPHORUS 2.4 mg/dL (2.5-4.9); POTASSIUM 3.1 mmol/L (3.5-5.1)
[2020-02-21 10:02] LABS: THYROID STIMULATING HORMONE 2.811 uIU/mL (0.358-3.74)
[2020-02-21] MEDS ORDERED: K PHOS NEUTRAL 250 MG TABLET PO ONE (12:00)
[2020-02-21] MEDS: IV NS 0.9% 1,000 ML IV PRN (12:25)
[2020-02-21] MEDS: CEFTRIAXONE 1 G in IV D5W 50 ML IV SCH (14:39)
--- NOTE | 2020-02-21 18:31 | NUR ---
SCREENING NURSE CLOSING NOTES PATIENT REMAINS IN BED, AWAKE, A/O X2. PATIENT IS ON ROOM AIR; BREATHING IS EVEN AND UNLABORED. NO COMPLAINS OF PAIN AT THIS TIME. EXTERNAL MONITOR WITH A READING OF SR 87. LFA IV ACCESS PRESENT AND INTACT INFUSING NS @ 75 MLS/HR. ALL NEEDS ATTENDED TO THROUGHOUT THE DAY. SAFETY PRECAUTIONS REMAIN IN PLACE; BED IN LOW POSITION AND LOCKED, RAILS UP X2, CALL LIGHT WITHIN REACH. WILL ENDORSE TO LEAD LAYING AND GLUING MACHINE OPERATOR NURSE.
--- NOTE | 2020-02-21 19:30 | NUR ---
ANALYTICS MANAGER NOTES RECEIVED ON BED A/O X3,BREATHING REGULAR,NOT IN ANY FORM OF DISTRESS.IVF NS AT 75ML/HR RATE INFUSING ON LFA VIA IV PUMP,SITE PATENT.REDNESS NOTED ON BILATERAL LOWER EXTREMITIES.DENIES PAIN AT THE MOMENT,CLAIMED SHE'S HUNGRY,ASKING FOR EGG SANDWICH.FALL RISK,BED ON LOWEST POSITION AND LOCKED.CALL LIGHT IN REACH,NEEDS ANTICIPATED.
--- NOTE | 2020-02-21 20:30 | NUR ---
RESPIRATORY DIRECTOR NOTES SR-90 ON TELE MONITOR
[2020-02-21] MEDS: ENOXAPARIN SODIUM 40 MG/0.4 ML DISP.SYRIN SQ SCH (21:11)
[2020-02-21] MEDS: ACETAMINOPHEN 325 MG TABLET PO PRN (21:17)
--- NOTE | 2020-02-21 21:17 | NUR ---
RELIGIOUS ASSISTANT NOTES C/O MILD PAIN ON LEFT FOOT,MEDICATED WITH TYLENOL 650MG PO WITH APPLE SAUCE,TAKEN WELL.NEGATIVE FOR ASPIRATION.
[2020-02-22] VITALS (8 sets, daily range): BP systolic 137–151; BP diastolic 60–80
[2020-02-22] MEDS: IV NS 0.9% 1,000 ML IV PRN ×2 (05:57→22:33)
--- NOTE | 2020-02-22 06:05 | NUR ---
MS RN NOTES AWAKE THIS TIME,SLEPT WELL,A/O X3,CLAIMED SHE FEELS BETTER,IVF IN PROGRESS,AWAITING WOUND CONSULT.IN NO ACUTE DISTRESS.
[2020-02-22 06:41] LABS: BASOPHILS # (AUTO) 0.1 /CMM (0.0-0.2); BASOPHILS % (AUTO) 1.3 % (0.0-2.0); EOSINOPHILS % (AUTO) 2.9 % (0.0-6.0); HEMATOCRIT 36 % (33-45); HEMOGLOBIN 11.9 g/dL (11.5-14.8); LYMPHOCYTES # (AUTO) 1.2 /CMM (0.8-4.8); MEAN CORPUSCULAR HGB CONC 33 g/dl (31.0-36.0); MEAN CORPUSCULAR VOLUME 109 fL (82-100); MONOCYTES # (AUTO) 0.6 /CMM (0.1-1.30); MONOCYTES % (AUTO) 12.7 % (2.0-12.0); NEUTROPHILS % (AUTO) 59.1 % (43.0-81.0); PLATELET COUNT (AUTO) 258 /CMM (150-450)
[2020-02-22 07:16] LABS: CALCIUM, SERUM 8.4 mg/dL (8.5-10.1); CREATININE 0.9 mg/dL (0.6-1.3); PHOSPHORUS 2.9 mg/dL (2.5-4.9)
[2020-02-22 07:21] LABS: POTASSIUM 2.7 mmol/L (3.5-5.1)
--- NOTE | 2020-02-22 07:21 | NUR ---
MASTER SCHEDULER NOTES REPORTED BY DIE MAKER APPRENTICE LUZ,POTASSIUM LEVEL 2.7.DAY NURSE MAYITO Jefferson MADE AWARE.
--- NOTE | 2020-02-22 07:25 | NUR ---
PURIFYING PLANT OPERATOR OPENING NOTES RECEIVED PATIENT IN BED, AWAKE, A/O X3. PATIENT IS ON ROOM AIR; BREATHING IS EVEN AND UNLABORED. NO COMPLAINS OF PAIN AT THIS TIME. EXTERNAL MONITOR WITH A READING OF NORMAL SR 73. L WRIST IV ACCESS PRESENT AND INTACT INFUSING NS @ 75 MLS/HR. SAFETY PRECAUTIONS IN PLACE; BED IN LOW POSITION AND LOCKED, RAILS UP X2, CALL LIGHT WITHIN REACH. WILL CONTINUE TO MONITOR PATIENT.
[2020-02-22] MEDS: POTASSIUM CHLORIDE 20 MEQ TAB.PRT.SR PO SCH ×5 (08:14→14:07)
[2020-02-22] MEDS: ATENOLOL 25 MG TABLET PO SCH (08:15)
[2020-02-22] MEDS: VALSARTAN 80 MG TABLET PO SCH (08:15)
--- NOTE | 2020-02-22 08:15 | NUR ---
GRAIN ELEVATOR AGENT NOTES RECEIVED CALL FROM LAB AT 0800 REGARDING LOW POTASSIUM LEVEL OF 2.7 MD NOTIFIED. ORDERS CARRIED OUT.
[2020-02-22] MEDS ORDERED: ENOXAPARIN SODIUM 40 MG/0.4 ML DISP.SYRIN SQ SCH (08:30)
[2020-02-22] MEDS: Magnesium 1GM/D5W 100ML PREMIX 100 ML IV SCH ×2 (09:00→10:22)
[2020-02-22 09:08] LABS: MAGNESIUM 1.2 mg/dL (1.8-2.4)
--- NOTE | 2020-02-22 10:59 | NUR ---
WOUND CARE CONSULT: PT PRESENTS WITH SACRAL DEEP TISSUE INJURY IN EVOLUTION AND BILATERAL ARM SKIN TEARS WELL REDNESS/SWELLING TO LEFT GREAT TOE, PRESENT ON ADMISSION. RECOMMEND SURGICAL AND DPM CONSULTS. DR DUFF AND DR ROBLEDO NOTIFIED OF CONSULT REQUESTS. SOCIAL SERVICE CONSULT IN PLACE. RECOMMENDATIONS MADE FOR SKIN PROTECTION. DISCUSSED WITH NURSING STAFF. PT ON EMILIA ISOFLEX LOW AIRLOSS BED. WILL SEE PRN. HWANG IN AGREEMENT WITH PLAN OF CARE. Addendum: 02/22/20 at 1101 by STEVE LEACH WNDNU Amended: Links added.
[2020-02-22] MEDS: CEFTRIAXONE 1 G in IV D5W 50 ML IV SCH (14:11)
--- NOTE | 2020-02-22 15:18 | NUR ---
Social Service consult requested by tissue technician due to pt being elderly, residing alone and has wounds. Per MD notes and chart review, pt is a 79-year-old female with a history of falls, hypertension, and alcohol use, who presented to the ER for fall. Reportedly caregiver found her on the ground upon arriving to her house. The patient is unable to recall exact details of what happened but states that she lives at home alone and uses a walker to get around the house. However she thinks she was walking to the kitchen when she felt dizzy and fell down some stairs and she thinks she may have hit her head. She also admits to some burning with urination. She denies loss of consciousness, pain, headache, dizziness, loss of motor or sensory function, changes in vision, nausea/vomiting/diarrhea, shortness of breath, dyspnea, fever/chills, cough, contact with sick individuals. EMS reports that they found a bottle of alcohol next to her on the ground. ACCOUNTING POLICY CONSULTANT met with the pt bedside. ACCOUNTING POLICY CONSULTANT introduced self, explained the role of the SW and purpose of the visit. Pt is alert and oriented x 3. Pt's mood congruent. Pt reports she lives alone in a house and has a caregiver a few times a week. Pt states she has a scooter she uses to ambulate. Pt also reports to have a shower chair at home. Pt reports she drinks approximately 2 to 4 times a week of white wine. Pt reports her caregiver is Erika. Pt is unable to provide her contact information. When asked if she has an Advance Directive, pt stated, "I don't know." ACCOUNTING POLICY CONSULTANT further attempted to discuss advance directive information, however pt states, she is not interested at this time. ACCOUNTING POLICY CONSULTANT informed the pt that the doctor is recommending SNF placement. Pt stated, I don't really want to talk right now. ACCOUNTING POLICY CONSULTANT ended the assessment per pt's request. ACCOUNTING POLICY CONSULTANT updated correctional casework specialist Sonal and Grazyna. Medical Social Service is available as needed ACCOUNTING POLICY CONSULTANT filed APS report for safety concerns at home. APS intake ID #[id number].
--- NOTE | 2020-02-22 16:22 | NUR ---
ASSOCIATE PROFESSOR OF EDUCATION NOTES COVID-19 SWAB OBTAINED AND TAKEN TO THE LAB
--- NOTE | 2020-02-22 18:51 | NUR ---
PROPERTY MANAGEMENT INTERN CLOSING NOTES PATIENT IN BED, AWAKE, A/O X3. PATIENT IS ON ROOM AIR; BREATHING IS EVEN AND UNLABORED. NO COMPLAINS OF PAIN AT THIS TIME. EXTERNAL MONITOR WITH A READING OF NORMAL SR - ST 100. L WRIST IV ACCESS PRESENT AND INTACT INFUSING NS @ 75 MLS/HR. ALL NEEDS ATTENDED TO THROUGHOUT THE DAY. SAFETY PRECAUTIONS REMAIN IN PLACE; BED IN LOW POSITION AND LOCKED, RAILS UP X2, CALL LIGHT WITHIN REACH. WILL ENDORSE TO SENIOR INFORMATICA ETL DEVELOPER NURSE.
--- NOTE | 2020-02-22 19:10 | NUR ---
MS RN NOTES RECEIVED PT IN BED AWAKE AND ABLE TO MAKE NEEDS KNOWN. PT A/O X2-3 WITH PERIODS OF CONFUSION. RESPIRATIONS EVEN AND UNLABORED WITH NO S/S OF ACUTE DISTRESS OR SOB NOTED. NO COMPLAINTS OF PAIN AT THIS TIME. SAFETY MEASURES IN PLACE WITH BED IN LOWEST LOCKED POSITION WITH SIDE RAILS UP X2. CALL LIGHT WITHIN REACH. WILL CONTINUE TO MONITOR.
[2020-02-22] MEDS: CLOTRIMAZOLE 1% 15 GM TUBE TP SCH (21:08)
[2020-02-22] MEDS: ENOXAPARIN SODIUM 40 MG/0.4 ML DISP.SYRIN SQ SCH (21:11)
[2020-02-23 06:31] LABS: BASOPHILS % (AUTO) 0.7 % (0.0-2.0); EOSINOPHILS % (AUTO) 3.8 % (0.0-6.0); HEMATOCRIT 33 % (33-45); HEMOGLOBIN 11.3 g/dL (11.5-14.8); LYMPHOCYTES # (AUTO) 1.3 /CMM (0.8-4.8); LYMPHOCYTES % (AUTO) 30.4 % (20.0-44.0); MEAN CORPUSCULAR HGB CONC 34 g/dl (31.0-36.0); MEAN CORPUSCULAR VOLUME 110 fL (82-100); MONOCYTES # (AUTO) 0.6 /CMM (0.1-1.30); MONOCYTES % (AUTO) 14.2 % (2.0-12.0); NEUTROPHILS # (AUTO) 2.2 /CMM (1.8-8.9); NEUTROPHILS % (AUTO) 50.9 % (43.0-81.0); PLATELET COUNT (AUTO) 229 /CMM (150-450); RED BLOOD CELL COUNT(AUTO) 3.05 MIL/uL (4.0-5.2); WHITE BLOOD COUNT (AUTO) 4.4 K/uL (4.3-11.0)
[2020-02-23 06:42] LABS: BILIRUBIN,TOTAL 0.3 mg/dL (0.2-1.0); CALCIUM, SERUM 8.4 mg/dL (8.5-10.1); CREATININE 0.7 mg/dL (0.6-1.3); MAGNESIUM 1.6 mg/dL (1.8-2.4); PHOSPHORUS 2.1 mg/dL (2.5-4.9); POTASSIUM 4.1 mmol/L (3.5-5.1); TOTAL PROTEIN, SERUM 5.1 g/dL (6.4-8.2)
[2020-02-23 07:28] LABS: BAND % (MANUAL) 2 % (0.0-5.0); EOSINOPHILS % (MANUAL) 6 % (0-4); LYMPHOCYTES % (MANUAL) 30 % (16-48); MONOCYTES % (MANUAL) 12 % (0-11.0); NEUTROPHILS % (MANUAL) 50 (42-76)
--- NOTE | 2020-02-23 07:44 | NUR ---
MS RN NOTES PT IN BED AWAKE AND ABLE TO MAKE NEEDS KNOWN. PT A/O X2-3 WITH PERIODS OF CONFUSION. RESPIRATIONS EVEN AND UNLABORED WITH NO S/S OF ACUTE DISTRESS OR SOB NOTED THROUGHOUT SHIFT. NO COMPLAINTS OF PAIN AT THIS TIME. PT KEPT CLEAN, DRY, AND COMFORTABLE. SAFETY MEASURES IN PLACE WITH BED IN LOWEST LOCKED POSITION WITH SIDE RAILS UP X2. CALL LIGHT WITHIN REACH. WILL ENDORSE TO ONCOMING NURSE FOR CARLOS.
--- NOTE | 2020-02-23 07:45 | NUR ---
RN MS NOTES PT IN BED, AWAKE, ALERT AND ORIENTED, DENIES PAIN, NOT IN DISTRESS, IV FLUIDS INFUSING WELL, CALL LIGHT WITHIN REACH, KEPT WARM AND COMFORTABLE IN BED.
[2020-02-23 08:00] VITALS: BP 142/93
[2020-02-23] MEDS: ATENOLOL 25 MG TABLET PO SCH (08:46)
[2020-02-23] MEDS: VALSARTAN 80 MG TABLET PO SCH (08:46)
[2020-02-23] MEDS: CLOTRIMAZOLE 1% 15 GM TUBE TP SCH ×2 (08:52→17:02)
[2020-02-23] MEDS: Magnesium 1GM/D5W 100ML PREMIX 100 ML IV SCH ×2 (10:24→12:33)
[2020-02-23] MEDS: AMLODIPINE BESYLATE 5 MG TABLET PO SCH (10:24)
[2020-02-23] MEDS ORDERED: K PHOS NEUTRAL 250 MG TABLET PO ONE (12:00)
[2020-02-23] MEDS ORDERED: AMLO5TAB9 PO (13:27)
[2020-02-23] MEDS ORDERED: VALS80TA2 PO (13:27)
[2020-02-23] MEDS: CEFTRIAXONE 1 G in IV D5W 50 ML IV SCH (14:38)
[2020-02-23] MEDS: IV NS 0.9% 1,000 ML IV PRN (14:38)
[2020-02-23 16:00] VITALS: BP 117/63
[2020-02-23] MEDS: MAG HYDROX/AL HYDROX/SIMETH 30 ML UDC PO PRN (17:08)
--- NOTE | 2020-02-23 19:00 | NUR ---
RN MS NOTES PT IN BED, AWAKE, ALERT AND ORIENTED, NO COMPLAINT OF PAIN, RESPIRATIONS NORMAL, IV FLUIDS INFUSING WELL, CALL LIGHT WITHIN REACH, TOLERATES WELL, PM CARE PROVIDED, REPOSITIONED FOR COMFORT, ALL NEEDS ATTENDED.
--- NOTE | 2020-02-23 19:59 | NUR ---
MS/RN OPENING NOTES RECEIVED PATIENT IN BED, HOB ELEVATED, CALL LIGHTS WITHIN REACH. BED LOCKED, RESPIRATIONS EVEN AND UNLABORED. RESPIRATIONS EVEN AND UNLABORED, LAST MYLANTA GIVEN 2 HOURS AGO FOR INDIGESTION. DISCUSSED PLAN OF CARE AND CONCERNS, WILL MONITOR, RECEIVED ENDORSEMENT FROM AM RN FOR CARLOS. PATIENT REQUIRE ASSISTANCE FOR AMBULATION PER PT, WITH PERINEAL REDNESS AND SACRAL SKIN ISSUES, ON REGULAR DIEY, WILL MONITOR. ISOLATION PRECAUTION FOLLOWED WITH PROPER PPE. HANDWASHING. WILL MONITOR.
[2020-02-23 20:00] VITALS: BP 133/69
[2020-02-23] MEDS: ENOXAPARIN SODIUM 40 MG/0.4 ML DISP.SYRIN SQ SCH (22:53)
[2020-02-24] MEDS: ACETAMINOPHEN 325 MG TABLET PO PRN ×2 (00:49→16:37)
--- NOTE | 2020-02-24 03:33 | NUR ---
RECEIVED RESULT OF COVID 19 NEGATIVE PER LAB
--- NOTE | 2020-02-24 07:30 | NUR ---
RN MS NOTES PT IN BED, ASLEEP, EASY TO AROUSE, ALERT AND ORIENTED, NO COMPLAINT OF PAIN OR ANY DISCOMFORT, RESPIRATIONS NORMAL, CALL LIGHT WITHIN REACH, NEEDS ATTENDED.
--- NOTE | 2020-02-24 07:36 | NUR ---
310-1 MS/RN NOTES PATIENT ABLE TO SLEEP FEW HOURS. ATTENDED TO ALL NEEDS. RESPIRATIONS EVEN AND UNLABORED. KEPT COMFORTABLE. MONITORED FOR ANY CHANGES. ISOLATION PROTOCOL FOLLOWED. BED LOCKED, CALLLIGHTS WITHIN REACH. IV SITE PATENT. WILL ENDORSE TO AM RN FOR CARLOS.
[2020-02-24 08:00] VITALS: BP 124/74
[2020-02-24] MEDS ORDERED: METHOTREXATE SODIUM (2.5MG) 2.5 MG TABLET PO SCH (09:00)
[2020-02-24] MEDS: VALSARTAN 80 MG TABLET PO SCH (09:37)
[2020-02-24] MEDS: AMLODIPINE BESYLATE 5 MG TABLET PO SCH (09:38)
[2020-02-24] MEDS: CLOTRIMAZOLE 1% 15 GM TUBE TP SCH ×2 (09:38→16:38)
[2020-02-24] MEDS: ATENOLOL 25 MG TABLET PO SCH (09:38)
--- NOTE | 2020-02-24 10:00 | NUR ---
medical administrative technician Jacquelyn PAL informed about consult for foot fx. she stated that she will inform .
--- NOTE | 2020-02-24 14:00 | NUR ---
dr. Vergara stated that she will see pt on Tuesday for foot fx.
[2020-02-24 16:00] VITALS: BP 148/98
--- NOTE | 2020-02-24 19:00 | NUR ---
RN MS NOTES PT IN BED, AWAKE, ALERT AND ORIENTED, NO COMPLAINT OF PAIN, RESPIRATIONS NORMAL, CALL LIGHT WITHIN REACH, ASSISTED WITH DINNER, COMPLIANT WITH CARE AND INTERVENTIONS, AWAITING PODIATRY CLEARANCE FOR DISCHARGE TO SNF.
[2020-02-24 20:00] VITALS: BP 133/71
--- NOTE | 2020-02-24 20:00 | NUR ---
MS/RN OPENING NOTES RECEIVED PATIENT IN BED, AWAKE, AWAKEN FROM SLEEP. RESPIRATIONS EVEN AND UNLABORED, ABLE TO VERBALIZE NEEDS, PROVIDED BLANKET PATIENT REPORTED FEELING COLD. BED LOCKED, CALL LIGHTS WITHIN REACH. PATIENT MONITORING FOR SAFETY WITHT BLE [place] REDNESS ON SACRA;. TO MONITOR. RECEIVED ENDORESMENT FROM AM RN FOR CARLOS.
--- NOTE | 2020-02-24 20:23 | NUR ---
MS/RN NOTES PER WET POUR SUPERVISOR [facility] [place] MAYBE DC TO SNF WITH FX ON FOOT ONCE PATIENT HAVE NO PAIN ON SITE AND TO APPLY DIMITRIS BANDAGE WRAP AROUND FOOT WITH SURGICAL SHOES.. FOLLOW UP IN AM FOR MD TO SEE FOOT FOR PROPER DISCHARGE. ORDER.
[2020-02-24] MEDS: MAG HYDROX/AL HYDROX/SIMETH 30 ML UDC PO PRN (21:45)
[2020-02-24] MEDS: ENOXAPARIN SODIUM 40 MG/0.4 ML DISP.SYRIN SQ SCH (21:48)
[2020-02-25] MEDS: ACETAMINOPHEN 325 MG TABLET PO PRN (01:08)
--- NOTE | 2020-02-25 06:18 | NUR ---
310-1 MS/RN NOTES PATIENT ABLE TO SLEEP DURING THE NIGHT, ATTENDED TO ALL NEEDS,RESPIRATIONS EVEN AND UNLABORED, KEPT SKIN INTACT AND DRY. HEP LOCK, COMPLIANT WITH MEDICATION. MONITORED FOR ANY CHANGES. BED LOCKED, CALL LIGHTS WITHIN REACH.WILL ENDORSE TO AM RN FOR CARLOS.
[2020-02-25 08:00] VITALS: BP 161/77
[2020-02-25] MEDS: VALSARTAN 80 MG TABLET PO SCH (08:52)
[2020-02-25] MEDS: AMLODIPINE BESYLATE 5 MG TABLET PO SCH (08:52)
[2020-02-25] MEDS: ATENOLOL 25 MG TABLET PO SCH (08:53)
[2020-02-25] MEDS: CLOTRIMAZOLE 1% 15 GM TUBE TP SCH (08:54)
[2020-02-25] MEDS: hydrALAZINE HCL 50 MG TABLET PO SCH ×2 (11:00→13:31)
[2020-02-25 13:31] VITALS: BP 111/52
--- NOTE | 2020-02-25 14:14 | NUR ---
M/S RN NOTES PATIENT DISCHARGED IN STABLE CONDITION, NO RESPIRATORY DISTRESS, NO C/O PAIN AT THIS TIME. SKIN WARM TO TOUCH, LEFT FOOT WRAPPED WITH DIMITRIS BANDAGE AND APPLIED SURGICAL SHOE. SKIN ASSESSED AND PHOTOS TAKEN AND PUT IN CHART. IVS REMOVED AND APPLIED PRESSURE DRESSING. PATIENT GIVEN DISCHARGE INSTRUCTIONS, VERBALIZED UNDERSTANDING. BELONGINGS ACCOUNTED FOR AND SIGNED. PATIENT LEFT VIA GURNEY WITH PARAMEDICS. REPORT GIVEN TO LEIF BEARDEN AT [facility].
[2020-02-26] MEDS ORDERED: ATENOLOL 25 MG TABLET PO SCH (09:00)
== END 2020-02-25 14:00 | DRG 73 ==
LOC: ER 11:24 → MED 14:22 → TELE 02-21 02:24 → MED 02-22 08:43
PROVIDERS: ADMIT Nurse Practitioner Acute Care; ATTEND Nurse Practitioner Acute Care
DX: G90.8 Other disorders of autonomic nervous system (principal); N17.0 Acute kidney failure with tubular necrosis; G93.41 Metabolic encephalopathy; N39.0 Urinary tract infection, site not specified; E87.2 Acidosis; I10 Essential (primary) hypertension; E86.0 Dehydration; W10.9XXA Fall (on) (from) unspecified stairs and steps, initial encounter; Z88.0 Allergy status to penicillin; Z88.2 Allergy status to sulfonamides; Z79.899 Other long term (current) drug therapy; Z91.81 History of falling; M19.90 Unspecified osteoarthritis, unspecified site; K21.9 Gastro-esophageal reflux disease without esophagitis; M06.9 Rheumatoid arthritis, unspecified; K76.0 Fatty (change of) liver, not elsewhere classified; G89.4 Chronic pain syndrome; F10.10 Alcohol abuse, uncomplicated; Y90.9 Presence of alcohol in blood, level not specified; W18.30XA Fall on same level, unspecified, initial encounter; E83.42 Hypomagnesemia; E87.6 Hypokalemia; I70.0 Atherosclerosis of aorta; E83.39 Other disorders of phosphorus metabolism; M85.80 Other specified disorders of bone density and structure, unspecified site; L89.156 Pressure-induced deep tissue damage of sacral region; S41.112A Laceration without foreign body of left upper arm, initial encounter; S41.111A Laceration without foreign body of right upper arm, initial encounter; X58.XXXA Exposure to other specified factors, initial encounter; Y92.009 Unspecified place in unspecified non-institutional (private) residence as the place of occurrence of the external cause; L30.4 Erythema intertrigo
CPT/HCPCS: 36415; 70450-TC; 71045-TC; 73630-TC; 74018; 80048-TC; 80053-TC; 80061-TC; 80076-TC; 80305; 81000-TC; 82550-TC; 82962-TC; 83540-TC; 83605-TC; 83735-TC; 84100-TC; 84439-TC; 84443-TC; 84484-TC; 85025-TC; 87081-TC; 87086-TC; 93307-TC; 93880-TC; 97110-TC; 97112-TC; 97530-TC; A6403; G0378; G0480; J0696; J1650; J3475; J7030; J7040; J7060; J8610; U0003-CS

== ENCOUNTER 2020-03-22 23:28 | Emergency (ER) | payer MEDICARE ==
[~2020-03-22] VITALS: Ht 175.3 cm; Wt 59.0 kg
[~2020-03-22 23:28] MED LIST changes: +AMLO5TAB9 PO; +ATEN25TA PO; -ESZO3TAB39 PO; -HYDR-4037 PO; -LEVO500T2 PO; -MAGN400T26 PO; -MELA5TAB PO; -PHOS250T2 PO; +POTA10CA43 PO; +VALS80TA2 PO
--- NOTE | 2020-03-22 23:35 | NUR ---
PT [id number] C/O L LEG AND L FOOT PAIN S/P GLF X2 WEEKS AGO. PT DENIES HT AND KO. PT REFUSES TO ANSWER FURTHER QUESTIONS. +SKIN INTACT. PT AAOX3, VSS, RESPIRATIONS EVEN AND UNLABORED ON RA W/ NAD NOTED. PT CONNECTED TO THE MONITOR AND POX
--- NOTE | 2020-03-22 23:40 | NUR ---
DR WILLIS AT BEDSIDE
--- NOTE | 2020-03-22 23:43 | NUR ---
PT HAS NO MEDICAL COMPLAINTS AT THIS TIME
--- NOTE | 2020-03-22 23:51 | NUR ---
ATTEMPTED TO CONTACT PT'S NEPHEW, LIZETH ([phone]). NO ANSWER, WILL FOLLOW UP
--- NOTE | 2020-03-23 00:21 | NUR ---
DR WILLIS ON THE PHONE W/ PT'S NEPHEW LIZETH
--- NOTE | 2020-03-23 01:02 | NUR ---
[facility] ETA 30 MINUTES
--- NOTE | 2020-03-23 02:03 | NUR ---
REPORT GIVEN TO EMS. PT STABLE TO DISCHARGE HOME
[2020-03-23 02:04] VITALS: BP 127/84
== END 2020-03-23 02:06 | disposition home or self-care (01) ==
LOC: ER 23:30
DX: S92.491A Other fracture of right great toe, initial encounter for closed fracture (principal); I10 Essential (primary) hypertension; Z88.0 Allergy status to penicillin; Z88.2 Allergy status to sulfonamides; Z60.2 Problems related to living alone; Z79.899 Other long term (current) drug therapy; W18.39XA Other fall on same level, initial encounter; Y93.89 Activity, other specified; Y92.89 Other specified places as the place of occurrence of the external cause; Y99.8 Other external cause status

== ENCOUNTER 2020-11-15 14:57 | Inpatient (IN) | payer MEDICARE ==
[~2020-11-15] VITALS: Ht 167.6 cm; Wt 77.3 kg
[~2020-11-15 14:57] MED LIST changes: +AMLO-212 PO; -AMLO5TAB9 PO
--- NOTE | 2020-11-15 15:10 | NUR ---
KIMBER ADHIKARI From Home "Lives with Niece been sick xcouple days she said ?UTI" Patient a/ox1, breathing even and unlabored, no sob noted, needs attended. kept comfortable.
--- NOTE | 2020-11-15 15:46 | NUR ---
RECTAL TEMP IS 101.8
[2020-11-15] MEDS ORDERED: IV NS 0.9% 1,000 ML BAG IV ONE ×2 (16:00→19:30)
--- NOTE | 2020-11-15 16:23 | NUR ---
IV LINE ESTABLISHED, BLOOD DRAWN AND SENT TO LAB. ANDERSON CATHETER FR16 INSERTED VIA STERILE TECHNIQUE.
[2020-11-15 16:39] LABS: BASOPHILS % (AUTO) 0.3 % (0.0-2.0); EOSINOPHILS % (AUTO) 0.1 % (0.0-6.0); HEMATOCRIT 42 % (33-45); HEMOGLOBIN 14.1 g/dL (11.5-14.8); LYMPHOCYTES # (AUTO) 0.3 /CMM (0.8-4.8); LYMPHOCYTES % (AUTO) 2.3 % (20.0-44.0); MEAN CORPUSCULAR HGB CONC 34 g/dl (31.0-36.0); MEAN CORPUSCULAR VOLUME 97 fL (82-100); MONOCYTES # (AUTO) 0.4 /CMM (0.1-1.30); MONOCYTES % (AUTO) 3.4 % (2.0-12.0); NEUTROPHILS # (AUTO) 10.2 /CMM (1.8-8.9); NEUTROPHILS % (AUTO) 93.9 % (43.0-81.0); PLATELET COUNT (AUTO) 257 /CMM (150-450); RED BLOOD CELL COUNT(AUTO) 4.32 MIL/uL (4.0-5.2); WHITE BLOOD COUNT (AUTO) 10.9 K/uL (4.3-11.0)
[2020-11-15 16:44] LABS: BILIRUBIN,URINE MODERATE (NEGATIVE); COLOR,URINE YELLOW (YELLOW); LEUKOCYTE ESTERASE ,URINE MODERATE (NEGATIVE); NITRITE, URINE POSITIVE (NEGATIVE); PH,URINE 6.5 (5.0-8.0); PROTEIN,URINE 30 mg/dl (NEGATIVE); UGLUCOSE NEGATIVE (NEGATIVE); UROBILINOGEN,URINE 0.2 EU/dL (0.2)
--- NOTE | 2020-11-15 17:00 | NUR ---
COVID SWAB SENT TO LAB.
--- NOTE | 2020-11-15 17:07 | NUR ---
MOVE SHEET SUBMITTED AND CALLED FOR TELE BED.
--- NOTE | 2020-11-15 17:11 | NUR ---
covid swab sent to lab.
[2020-11-15 17:26] LABS: ALANINE AMINOTRANSFERASE 109 U/L (12-78); ALBUMIN 3.3 g/dL (3.4-5.0); ALKALINE PHOSPHATASE 180 U/L (46-116); ASPARTATE AMINOTRANSFERASE 169 U/L (15-37); B-TYPE NATRIURETIC PEPTIDE 2611 PG/ML (0-125); BILIRUBIN,DIRECT 1.9 mg/dL (0.0-0.2); BILIRUBIN,TOTAL 3.3 mg/dL (0.2-1.0); CALCIUM, SERUM 9.7 mg/dL (8.5-10.1); CARBON DIOXIDE 22 mmol/L (21-32); CHLORIDE 97 mmol/L (98-107); CREATININE 0.9 mg/dL (0.6-1.3); GLUCOSE 136 mg/dL (74-106); POTASSIUM 4.6 mmol/L (3.5-5.1); SODIUM SERUM 131 mmol/L (136-145); TOTAL PROTEIN, SERUM 7.5 g/dL (6.4-8.2); UREA NITROGEN, BLOOD 13 mg/dL (7-18)
[2020-11-15 17:28] LABS: BACTERIA,URINE 4+ /HPF (None Seen); SQUAMOUS EPITHELIAL CELL,UR 0-2 /HPF (None Seen); WBC,URINE 51-80 /HPF (0-3)
[2020-11-15] MEDS ORDERED: CEFTRIAXONE 1 G in IV D5W 50 ML IV ONE (17:30)
[2020-11-15] MEDS ORDERED: CEFTRIAXONE 1GM BAG (ER ONLY) 50 ML IV ONE (17:34)
--- NOTE | 2020-11-15 17:51 | NUR ---
LAB CALLED PT COVID-19 RESULT NEGATIVE (-)
--- NOTE | 2020-11-15 18:10 | NUR ---
[facility] CALLED RUBBER CUTTING MACHINE TENDER PAGED.
--- NOTE | 2020-11-15 18:27 | NUR ---
GOT BED 118 BUT AVAILABLE AFTER SHIFT CHANGE.
--- NOTE | 2020-11-15 18:50 | NUR ---
AUBRIE 118
--- NOTE | 2020-11-15 18:55 | NUR ---
TRIED TO GIVE REPORT BUT NO NURSE ASSIGNED TO THE PATIENT YET.
--- NOTE | 2020-11-15 18:56 | NUR ---
PATIENT IN BED, NO DISTRESS NOTED. MONITORED CLOSELY DUE TO PATIENT BEING CONFUSED.
--- NOTE | 2020-11-15 19:16 | NUR ---
ER TALKING TO DR. MCCARTHY REGARDING PT ADMISSION.
--- NOTE | 2020-11-15 19:18 | NUR ---
REPORT GIVEN TO ZULEMA YADAV AT [facility].
--- NOTE | 2020-11-15 19:40 | NUR ---
PT TRANSFERED PER ACLS PROTOCOL
--- NOTE | 2020-11-15 19:40 | NUR ---
RN NOTE RECIEVED PT FROM ER VIA [facility] ACCOMPANIED BY RN AND EMT UNDER ACLS PROTOCOL. PT IS ALERT AND ORIENTED X 1 AND ON ROOM AIR. WITH ANDERSON CATHETER PATENT AND IN PLACE DRAINING CLEAR JOSE R COLORED URINE VIA GRAVITY. PT WITH 18G IV ON RIGHT WRIST PATENT AND INTACT FLUSHING WELL. PT ARRIVED WITH 1L BOLUS OF NS RUNNING FROM ER. COMPREHENSIVE BODY ASSESSMENT COMPLETE. SKIN INTACT EXCEPT WITH PERINEAL REDNESS. ST ON THE PARENT COACH. VITAL SIGNS TAKEN. SAFETY MEASURES IN PLACE PER PROTOCOL, BED ALARM ON, BED LOCKED AND IN LOW POSITION, SIDE RAILS UP X 2, NOTIFED ATTENDING PHYSICIAN DR. MCCARTHY ABOUT PT'S STATUS WELL FOR NEW ADMISSION ORDERS. WILL MONITOR PATIENT AND CARRY OUT ACTIVE MD ORDERS.
[2020-11-15 20:00] VITALS: BP 167/89
--- NOTE | 2020-11-15 20:54 | NUR ---
ATTEMPTED TO PERFORM GB US, PT REFUSED, RN INFORMED. RN REQUESTED TO ATTEMPT AGAIN ON THE FOLLOWING DAY.
--- NOTE | 2020-11-15 21:00 | NUR ---
television repairer notes. Received a call from lab spoke to aria lactic acid 2.4
--- NOTE | 2020-11-15 21:15 | NUR ---
RN NOTE HEALTH PLAN ADVISOR AT BEDSIDE ATTEMPTING TO DO ROUTINE GALLBLADDER ULTRASOUND ORDERED. PT BECAME AGITATED AND STRONGLY REFUSED. RN AND TELEPHONE LINEMAN ATTEMPTED TO CALM PATIENT DOWN AND EXPLAIN PROCEDURE TO PATIENT BUT SHE CONTINUED TO REFUSE STRONGLY REFUSE. WILL TRY AGAIN IN AM. CHARGE NURSE AND MD AWARE.
[2020-11-15] MEDS ORDERED: HYDROCODONE/APAP 5/325MG TABLET PO PRN (21:30)
[2020-11-15] MEDS ORDERED: Z GUARD REMEDY 2 OZ OINT TP PRN (21:30)
[2020-11-15] MEDS ORDERED: MAG HYDROX/AL HYDROX/SIMETH 30 ML UDC PO PRN (21:30)
[2020-11-15] MEDS ORDERED: ONDANSETRON HCL/PF 4 MG/2 ML VIAL IVP PRN (21:30)
[2020-11-15] MEDS ORDERED: MAGNESIUM HYDROXIDE 30 ML UDC PO PRN (21:30)
[2020-11-15] MEDS ORDERED: ACETAMINOPHEN 325 MG TABLET PO PRN (21:30)
[2020-11-15] MEDS: IV NS 0.9% 1,000 ML IV PRN (21:55)
[2020-11-15] MEDS: ENOXAPARIN SODIUM 40 MG/0.4 ML DISP.SYRIN SQ SCH (22:02)
[2020-11-16] VITALS: BP 149/69
[2020-11-16 04:00] VITALS: BP 133/57
--- NOTE | 2020-11-16 04:30 | NUR ---
RN NOTE PT SLEEPING IN BED IN SEMI SABA'S POSITION WITHOUT SIGNS OF PAIN OR DISCOMFORT. ONGOING IV FLUIDS RUNNING ORDERED, WILL CONTINUE TO MONITOR PATIENT
--- NOTE | 2020-11-16 06:14 | NUR ---
RN NOTE 2 LAB TECHNICIANS AT BEDSIDE ATTEMPTING TO DRAW BLOOD FROM PT BUT SHE STRONGLY REFUSED. EXPLAINED RISKS AND ADVANTAGES BUT PT IS STILL AGITATED AND UNCOOPERATIVE. PHLEBOTOMISTS WILL TRY AGAIN IN A FEW HOURS.
--- NOTE | 2020-11-16 07:15 | NUR ---
RN OPENING NOTES RECEIVED PT AWAKE, A/O X1. ON ROOM AIR SATURATING @97%. NO SOB OR ANY RESPIRATORY DISTRESS NOTED. SR ON TELE MONITOR. ON CARDIAC DIET. IV ACCESS PULLED OUT. REFUSES REINSERTION AT THIS TIME. WILL TRY AGAIN LATER. SAFETY MEASURES IMPLEMENTED. CALL LIGHT WITHIN REACH. BED LOCKED AND AT LOWEST POSITION WITH SIDE RAILS UP X2. BED ALARM ON. WILL CONTINUE TO MONITOR.
--- NOTE | 2020-11-16 07:23 | NUR ---
RN NOTE ENDORSED PT TO LEIF LOMBARDI FOR CONTINUATION OF CARE.
[2020-11-16 08:00] VITALS: BP 151/68
[2020-11-16] MEDS: PANTOPRAZOLE 40 MG TABLET.DR PO SCH (08:31)
[2020-11-16] MEDS ORDERED: ESZO3TAB39 PO (09:31)
[2020-11-16] MEDS ORDERED: THIA50TA10 PO (09:31)
[2020-11-16] MEDS ORDERED: CRAN425C6 PO (09:31)
[2020-11-16] MEDS ORDERED: FOLI0.4T2 PO (09:31)
[2020-11-16] MEDS ORDERED: MULT-447 PO (09:31)
--- NOTE | 2020-11-16 11:13 | NUR ---
Patient refused GB ultrasound again. Informed RN Rui. Try again possibly next day 11/17/20
[2020-11-16 12:00] VITALS: BP 101/68
[2020-11-16 13:26] LABS: BASOPHILS % (AUTO) 0.4 % (0.0-2.0); EOSINOPHILS % (AUTO) 4.2 % (0.0-6.0); HEMATOCRIT 36 % (33-45); LYMPHOCYTES # (AUTO) 0.6 /CMM (0.8-4.8); LYMPHOCYTES % (AUTO) 7.7 % (20.0-44.0); MEAN CORPUSCULAR HGB CONC 33 g/dl (31.0-36.0); MEAN CORPUSCULAR VOLUME 98 fL (82-100); MONOCYTES # (AUTO) 0.5 /CMM (0.1-1.30); MONOCYTES % (AUTO) 5.7 % (2.0-12.0); NEUTROPHILS # (AUTO) 6.7 /CMM (1.8-8.9); PLATELET COUNT (AUTO) 221 /CMM (150-450); RED BLOOD CELL COUNT(AUTO) 3.67 MIL/uL (4.0-5.2); WHITE BLOOD COUNT (AUTO) 8.1 K/uL (4.3-11.0)
[2020-11-16 13:41] LABS: ALANINE AMINOTRANSFERASE 80 U/L (12-78); ALBUMIN 2.6 g/dL (3.4-5.0); ALKALINE PHOSPHATASE 123 U/L (46-116); ASPARTATE AMINOTRANSFERASE 62 U/L (15-37); BILIRUBIN,DIRECT 2.3 mg/dL (0.0-0.2); BILIRUBIN,TOTAL 2.8 mg/dL (0.2-1.0); CALCIUM, SERUM 8.6 mg/dL (8.5-10.1); CARBON DIOXIDE 24 mmol/L (21-32); CHLORIDE 104 mmol/L (98-107); CREATININE 0.9 mg/dL (0.6-1.3); GLUCOSE 128 mg/dL (74-106); MAGNESIUM 1.4 mg/dL (1.8-2.4); PHOSPHORUS 2.1 mg/dL (2.5-4.9); POTASSIUM 3.6 mmol/L (3.5-5.1); SODIUM SERUM 137 mmol/L (136-145); TOTAL PROTEIN, SERUM 6.3 g/dL (6.4-8.2); UREA NITROGEN, BLOOD 14 mg/dL (7-18)
[2020-11-16 13:52] LABS: CHOLESTEROL 147 mg/dL (<200); HDL CHOLESTEROL 68 mg/dL (40-60); LDL 45 mg/dL (0-99); THYROID STIMULATING HORMONE 1.941 uIU/mL (0.358-3.74); TRIGLYCERIDES 108 mg/dL (30-150)
[2020-11-16 16:00] VITALS: BP 151/70
[2020-11-16] MEDS ORDERED: NEUTRA PHOS 1 POWD.PACKET PO ONE (16:00)
[2020-11-16] MEDS: Magnesium 1GM/D5W 100ML PREMIX 100 ML IV SCH ×4 (16:15→20:38)
[2020-11-16] MEDS: IV NS 0.9% 1,000 ML IV PRN (16:25)
[2020-11-16] MEDS: CEFTRIAXONE 1 G in IV D5W 50 ML IV SCH (18:06)
--- NOTE | 2020-11-16 18:50 | NUR ---
RN CLOSING NOTES PT RESTING IN BED, A/O X2-3. ON ROOM AIR SATURATING @98%. NO SOB OR ANY RESPIRATORY DISTRESS NOTED. SR ON TELE MONITOR. IV ACCESS AT L HAND #18 INTACT, PATENT AND FLUSHED. NO PAIN REPORTED AT THIS TIME. NEEDS ATTENDED. NO SIGNIFICANT CHANGES THROUGHOUT THE SHIFT. SAFETY MEASURES IMPLEMENTED. CALL LIGHT WITHIN REACH. BED LOCKED AND AT LOWEST POSITION WITH SIDE RAILS UP X2. BED ALARM ON. WILL ENDORSE TO NIGHT NURSE FOR CARLOS.
--- NOTE | 2020-11-16 19:45 | NUR ---
RN OPENING NOTES RECEIVED PT IN BED. A/O X3. ON ROOM AIR, TOLERATING WELL. NO SOB OR RESP DISTRESS NOTED. PT IS NSR 80S ON TELE MONITORING. IV SITE FLUSHED. PT HAS IVF N2 @ 75CC/HR, NO S/S OF INFILTRATION NOTED. PT DENIES PAIN. SAFETY MEASURES IN PLACE., HOB ELEVATED BED LOCKED IN LOWEST POSITION WITH ALARM ON. SIDE RAILS UP X2 CALL LIGHT WITHIN REACH. WILL CONT TO MONITOR
[2020-11-16 20:00] VITALS: BP 151/70
[2020-11-16] MEDS: ENOXAPARIN SODIUM 40 MG/0.4 ML DISP.SYRIN SQ SCH (21:24)
[2020-11-16] MEDS: ZOLPIDEM TARTRATE 5 MG TABLET PO PRN (23:21)
[2020-11-17] VITALS: BP 151/70
[2020-11-17] MEDS: IV NS 0.9% 1,000 ML IV PRN ×2 (03:44→17:05)
[2020-11-17 04:00] VITALS: BP 140/62
[2020-11-17 06:11] LABS: BASOPHILS % (AUTO) 0.4 % (0.0-2.0); EOSINOPHILS % (AUTO) 9.9 % (0.0-6.0); HEMATOCRIT 36 % (33-45); HEMOGLOBIN 11.9 g/dL (11.5-14.8); LYMPHOCYTES # (AUTO) 0.8 /CMM (0.8-4.8); LYMPHOCYTES % (AUTO) 12.8 % (20.0-44.0); MEAN CORPUSCULAR HGB CONC 33 g/dl (31.0-36.0); MEAN CORPUSCULAR VOLUME 100 fL (82-100); MONOCYTES # (AUTO) 0.5 /CMM (0.1-1.30); MONOCYTES % (AUTO) 7.9 % (2.0-12.0); NEUTROPHILS # (AUTO) 4.1 /CMM (1.8-8.9); PLATELET COUNT (AUTO) 210 /CMM (150-450); RED BLOOD CELL COUNT(AUTO) 3.61 MIL/uL (4.0-5.2)
--- NOTE | 2020-11-17 06:43 | NUR ---
RN CLOSING NOTES PT RESTED WELL THROUGHOUT THE NIGHT. PT IS STILL ON ROOM AIR, SAT 95-98%. TOLERATING WELL. NO SOB OR RESP DISTRESS NOTED. PT YELLS, CONFUSED. FREQUENTLY REORIENTED. STILL RECEIVING NS 0.9% IVF @75CC/HR. SAFETY MEASURES IN PLACE., HOB ELEVATED BED LOCKED IN LOWEST POSITION WITH ALARM ON. SIDE RAILS UP X2 CALL LIGHT WITHIN REACH. WILL ENDORSE TO DAY SHIFT NURSE FOR CONTINUATION OF CARE. Addendum: 11/17/20 at 0650 by CHASTITY HARRISON RN PT AFEBRILE, NEEDS ATTENDED. DENIES PAIN.
[2020-11-17 07:25] LABS: CALCIUM, SERUM 8.9 mg/dL (8.5-10.1); CREATININE 0.8 mg/dL (0.6-1.3); MAGNESIUM 2.1 mg/dL (1.8-2.4); POTASSIUM 3.5 mmol/L (3.5-5.1)
--- NOTE | 2020-11-17 07:25 | NUR ---
RN OPENING NOTES PATIENT RECEIVED IN BED A/O X3 CURRENTLY ON ROOM AIR, TOLERATING WELL. NO SOB OR RESP DISTRESS NOTED. LEFT HAND #18 INTACT AND CURRENTLY RUNNING NS AT 75 ML/HR. NO S/S OF INFILTRATION NOTED. PT DENIES PAIN. SAFETY MEASURES IMPLEMENTED, BED LOCKED IN LOWEST POSITION, BED ALARM ON, SIDE RAILS UP X2, CALL LIGHT WITHIN REACH. WILL CONTINUE TO MONITOR AND PROVIDE CARE THROUGHOUT SHIFT.
[2020-11-17 08:00] VITALS: BP 145/67
[2020-11-17] MEDS: PANTOPRAZOLE 40 MG TABLET.DR PO SCH (08:00)
--- NOTE | 2020-11-17 11:14 | NUR ---
WOUND CARE CONSULT: REVIEWED CHART, NURSING DOCUMENTATION AND PHOTO WHICH INDICATES RASH TO PERINEUM, PRESENT ON ADMISSION. RECOMMENDATIONS MADE FOR SKIN PROTECTION. DISCUSSED WITH NURSING STAFF. CURRENT LINDA SCORE IS 14. MD IN AGREEMENT WITH PLAN OF CARE.
[2020-11-17 12:00] VITALS: BP 150/78
[2020-11-17 16:00] VITALS: BP 148/76
[2020-11-17] MEDS: CLOTRIMAZOLE 1% 15 GM TUBE TP SCH (16:16)
[2020-11-17] MEDS: CEFTRIAXONE 1 G in IV D5W 50 ML IV SCH (17:02)
--- NOTE | 2020-11-17 19:10 | NUR ---
RN OPENING NOTE RECEIVED PATIENT IN BED RESTING,ALERT ORIENTED X3 VERBALLY RESPONSIVE ON ROOM AIR O2:94% IV SITE IS ON LEFT HAND INTACT PATENT,IV HYDRATION NS 0.9% RUNNING 75CC/HR ANDERSON CATHETER IN PLACE URINE RUNNING YELLOW/CLEAR BY GRAVITY,SAFETY MEASURE IMPLEMENT,BED IN LOW POSITION AND LOCKED,BED ALARM IS ON,CALL LIGHT WITHIN REACH,CONTINUE TO MONITOR.
--- NOTE | 2020-11-17 19:14 | NUR ---
RN CLOSING NOTES PATIENT RECEIVED IN BED A/O X3 CURRENTLY ON ROOM AIR, TOLERATING WELL. NO SOB OR RESP DISTRESS NOTED. LEFT HAND #18 INTACT AND CURRENTLY RUNNING NS AT 75 ML/HR. NO S/S OF INFILTRATION NOTED. PT DENIES PAIN. SAFETY MEASURES IMPLEMENTED, BED LOCKED IN LOWEST POSITION, BED ALARM ON, SIDE RAILS UP X2, CALL LIGHT WITHIN REACH. WILL ENDORSE CARE TO UPCOMING SHIFT.
[2020-11-17 20:00] VITALS: BP 134/51
[2020-11-17] MEDS: ZOLPIDEM TARTRATE 5 MG TABLET PO PRN (20:08)
[2020-11-17] MEDS: ENOXAPARIN SODIUM 40 MG/0.4 ML DISP.SYRIN SQ SCH (22:04)
[2020-11-18] VITALS: BP 135/56
[2020-11-18 04:00] VITALS: BP 154/80
[2020-11-18] MEDS: IV NS 0.9% 1,000 ML IV PRN ×2 (06:16→19:25)
--- NOTE | 2020-11-18 06:45 | NUR ---
RN CLOSING NOTE PATIENT REMAINS ON ALERT ORIENTED X3 VERBALLY RESPONSIVE NO SOB NOT ACUTE DISTRESS NOTED,ON ROOM AIR O2;94% IV SITE IS ON LEFT HAND INTACT PATENT ON IV HYDRATION NS 0.9% AT 75CC/HR RUNNING,ANDERSON CATHETER IN PLACE,URINE IS YELLOW AND CLEAR,ALL DUE MEDS GIVEN MD ORDERED KEPT CLEAN AND DRY ALL THE TIME,KEPT CALL LIGHT WITHIN REACH,ENDORSE NEXT SHIFT FOR CONTINUATION OF CARE.
--- NOTE | 2020-11-18 07:25 | NUR ---
ms rn received on bed, awake,alert,oriented x 3,not in any form of distress, respirations even and unlabored,no sob noted, denies pain at this time, will monitor patient's condition.
[2020-11-18 07:56] LABS: CALCIUM, SERUM 9.2 mg/dL (8.5-10.1); CREATININE 0.7 mg/dL (0.6-1.3); POTASSIUM 3.8 mmol/L (3.5-5.1)
[2020-11-18 08:00] VITALS: BP 165/83
[2020-11-18 08:02] LABS: BASOPHILS % (AUTO) 0.7 % (0.0-2.0); EOSINOPHILS % (AUTO) 9.1 % (0.0-6.0); HEMATOCRIT 37 % (33-45); HEMOGLOBIN 12.4 g/dL (11.5-14.8); LYMPHOCYTES # (AUTO) 1.1 /CMM (0.8-4.8); MEAN CORPUSCULAR HGB CONC 33 g/dl (31.0-36.0); MEAN CORPUSCULAR VOLUME 99 fL (82-100); MONOCYTES # (AUTO) 0.6 /CMM (0.1-1.30); MONOCYTES % (AUTO) 9.8 % (2.0-12.0); NEUTROPHILS % (AUTO) 63.4 % (43.0-81.0); PLATELET COUNT (AUTO) 264 /CMM (150-450); RED BLOOD CELL COUNT(AUTO) 3.79 MIL/uL (4.0-5.2); WHITE BLOOD COUNT (AUTO) 6.3 K/uL (4.3-11.0)
--- NOTE | 2020-11-18 09:00 | NUR ---
ms valdez breakfast served,due meds given,tolerated well.
[2020-11-18] MEDS: PANTOPRAZOLE 40 MG TABLET.DR PO SCH (10:01)
[2020-11-18] MEDS: FOLIC ACID 1 MG TABLET PO SCH (10:02)
[2020-11-18] MEDS: MULTIVIT W/MINERALS 1 TAB TABLET PO SCH (10:02)
[2020-11-18] MEDS: THIAMINE HCL 100 MG TABLET PO SCH (10:02)
[2020-11-18] MEDS: CLOTRIMAZOLE 1% 15 GM TUBE TP SCH ×2 (10:03→17:02)
--- NOTE | 2020-11-18 12:00 | NUR ---
ms rn was seen by dr. lora dykes/ orders made and carried out.
[2020-11-18 16:00] VITALS: BP 165/83
--- NOTE | 2020-11-18 16:00 | NUR ---
ms rn patient is negative for covid,will transfer later per charge nurse.
[2020-11-18] MEDS: CEFTRIAXONE 1 G in IV D5W 50 ML IV SCH (17:01)
[2020-11-18] MEDS ORDERED: ESZOPICLONE 3 MG PO SCH (18:00)
[2020-11-18] MEDS: hydrALAZINE HCL 25 MG TABLET PO PRN (18:23)
--- NOTE | 2020-11-18 19:15 | NUR ---
RECEIVED PT ON BED AWAKE A/O X3 ON ROOM AIR SPO2 94% ABLE TO VERBALIZED NEEDS HAVE LEFT HAND # 22 WITH ONGOING NS @ 75ML/HR INFUSING WELL, HAVE ANDERSON CATHETER DRAINING YELLOW URINE VIA GRAVITY, BED ON LOWEST POSITION AND LOCKED SIDE RAILS UP X2 CALL LIGHT WITHIN REACH WILL CONT TO MONITOR
--- NOTE | 2020-11-18 19:31 | NUR ---
ms rn on bed, no distress noted,all needs attended.
[2020-11-18 20:00] VITALS: BP 158/71
[2020-11-18] MEDS: ENOXAPARIN SODIUM 40 MG/0.4 ML DISP.SYRIN SQ SCH (21:04)
--- NOTE | 2020-11-18 21:30 | NUR ---
TRANSFER PT TO ROOM 312 D/T NEGATIVE COVID TEST VIA HIS BED NO SIGN OF DISTRESS NOTED PT IS ALERT ORIENTED REPORT GIVEN TO MS RAFAEL YADAV FOR CARLOS ALL BELONGINGS ALSO BRING TO ROOM 312
--- NOTE | 2020-11-18 21:45 | NUR ---
JUAN DAVID RECEIVED VIA BED FROM AUBRIE A 80 Y/O WITH DX OF UTI SEPSIS. ORIENTED TO ROOM FACILITIES, CALL LIGHT USE INSTRUCTED. NO SOB, PAINFREE. STATED ALL SHE WANT IS AMBIEN AND WAS UPSET FOR AWHILE BEING MOVED LATE. STAYED WITH PATIENT FOR AWHILE KEPT COMFORTABLE. PRESENT IVF CONTINUED. HEARD ALL CONCERNS FELT BETTER AFTER FEW MINUTES. CLOSELY WATCHED
[2020-11-18 22:00] VITALS: BP 173/84
[2020-11-18] MEDS: ZOLPIDEM TARTRATE 5 MG TABLET PO PRN (22:55)
--- NOTE | 2020-11-19 05:43 | NUR ---
MSRN ABLE TO SLEEP WELL. NO OTHER NEEDS MADE. IVF CONTINUED.
--- NOTE | 2020-11-19 07:49 | NUR ---
MS/RN OPENING NOTES RECEIVED PATIENT ON BED,AWAKE,ALERT AND ORIENTED X3. PATIENT IS ON ROOM AIR SATURATING WELL. PATIENT IN NO APPARENT RESPIRATORY DISTRESS NOTED. NO COMPLAINED OF PAIN NOTED AT THIS TIME. WILL CONTINUE TO MONITOR.
[2020-11-19 08:00] VITALS: BP 162/96
[2020-11-19] MEDS: PANTOPRAZOLE 40 MG TABLET.DR PO SCH (08:13)
[2020-11-19] MEDS: MULTIVIT W/MINERALS 1 TAB TABLET PO SCH (08:13)
[2020-11-19] MEDS: THIAMINE HCL 100 MG TABLET PO SCH (08:13)
[2020-11-19] MEDS: FOLIC ACID 1 MG TABLET PO SCH (08:13)
[2020-11-19] MEDS: CLOTRIMAZOLE 1% 15 GM TUBE TP SCH ×2 (08:38→17:08)
[2020-11-19] MEDS: IV NS 0.9% 1,000 ML IV PRN (09:11)
[2020-11-19 16:00] VITALS: BP 159/85
[2020-11-19] MEDS: hydrALAZINE HCL 25 MG TABLET PO PRN (17:25)
--- NOTE | 2020-11-19 17:45 | NUR ---
MS/RN OPENING NOTE RECEIVED PATIENT RESTING IN BED. AWAKE, ALERT AND ORIENTED X 3. ABLE TO MAKE NEEDS KNOWN. NO COMPLAINTS OF PAIN AT THIS TIME. PATIENT TO BE DISCHARGED WHEN BP IS STABLE. BP AT 1944 WAS 156/78. NO SIGNS OR SYMPTOMS OF DISTRESS NOTED. WILL RECHECK BP. IV ACCESS TO LEFT HAND #18G INTACT AND PATENT. CALL LIGHT WITHIN REACH. ASPIRATION, FALL AND SAFETY PRECAUTIONS MAINTAINED. WILL CONTINUE TO MONITOR. Addendum: 11/19/20 at 2025 by DAY SANDHU RN INCORRECT TIME
[2020-11-19] MEDS: CEFTRIAXONE 1 G in IV D5W 50 ML IV SCH (18:06)
--- NOTE | 2020-11-19 19:14 | NUR ---
MS/RN CLOSING NOTES PATIENT BP 180/98 P 137 HYDRALAZINE 25MG PO WAS GIVEN RECHECK AFTER HALF HOUR BP 186/81, LATEST BP 180/100 P 81 K[employer] VICE PRESIDENT IS AWARE AND ORDER CATAPRES 0.2 PO X1 FOR >160 NOTED AND CARRIED OUT. PATIENT IN NO APPARENT RESPIRATORY DISTRESS NOTED NO COMPLAINED OF PAIN. WILL ENDORSED TO WELDING SUPERVISOR FOR CARLOS.
[2020-11-19] MEDS ORDERED: CLONIDINE HCL 0.1 MG TABLET PO ONE (19:30)
--- NOTE | 2020-11-19 19:45 | NUR ---
MS/RN OPENING NOTE RECEIVED PATIENT RESTING IN BED. AWAKE, ALERT AND ORIENTED X 3. ABLE TO MAKE NEEDS KNOWN. NO COMPLAINTS OF PAIN AT THIS TIME. PATIENT TO BE DISCHARGED WHEN BP IS STABLE. BP AT 1944 WAS 156/78. NO SIGNS OR SYMPTOMS OF DISTRESS NOTED. WILL RECHECK BP. IV ACCESS TO LEFT HAND #18G INTACT AND PATENT. CALL LIGHT WITHIN REACH. ASPIRATION, FALL AND SAFETY PRECAUTIONS MAINTAINED. WILL CONTINUE TO MONITOR. Addendum: 11/19/20 at 2024 by DAY SANDHU RN INCORRECT PATIENT
--- NOTE | 2020-11-19 19:46 | NUR ---
MS/RN OPENING NOTE RECEIVED PATIENT RESTING IN BED. AWAKE, ALERT AND ORIENTED X 3. ABLE TO MAKE NEEDS KNOWN. NO COMPLAINTS OF PAIN AT THIS TIME. PATIENT TO BE DISCHARGED WHEN BP IS STABLE. BP AT 194 WAS 156/78. NO SIGNS OR SYMPTOMS OF DISTRESS NOTED. WILL RECHECK BP. IV ACCESS TO LEFT HAND #18G INTACT AND PATENT. CALL LIGHT WITHIN REACH. ASPIRATION, FALL AND SAFETY PRECAUTIONS MAINTAINED. WILL CONTINUE TO MONITOR.
[2020-11-19 20:00] VITALS: BP 156/78
[2020-11-19 20:37] VITALS: BP 173/81
[2020-11-19] MEDS: ENOXAPARIN SODIUM 40 MG/0.4 ML DISP.SYRIN SQ SCH (21:53)
--- NOTE | 2020-11-19 23:30 | NUR ---
MS/COUNTER HOP NOTE PATIENT DISCHARGED AT APPROX. 2330 VIA [facility] WITH 2 TOOL POLISHING MACHINE OPERATOR AND NOAH. ALL BELONGINGS SENT WITH PATIENT. PAPERWORK REVIEWED WITH PATIENT UNDERSTANDING. IV DISCONTINUED. ID BAND REMOVED. SPOKE WITH FAMILY CONTACT VITA AND UPDATED HER ON PATIENT STATUS. VITAL SIGNS PRIOR TO DISCHARGE: BP 128/73 HR 80 RR 18 T 97.6 O2 SAT 97% RA. PATIENT REFUSED EMT VITAL SIGNS. REPORT GIVEN TO TOOL POLISHING MACHINE OPERATOR.
== END 2020-11-19 23:55 | disposition home health service (06) | DRG 871 ==
LOC: ER 15:06 → TRANSITION 19:14 → TELE1 19:30 → MEDSG1 11-18 11:05 → MED 11-18 22:08
PROVIDERS: ADMIT Student in an Organized Health Care Education/Training Program; ATTEND Internal Medicine
DX: A41.89 Other specified sepsis (principal); K72.00 Acute and subacute hepatic failure without coma; E44.1 Mild protein-calorie malnutrition; E87.1 Hypo-osmolality and hyponatremia; N39.0 Urinary tract infection, site not specified; E87.2 Acidosis; K21.9 Gastro-esophageal reflux disease without esophagitis; I10 Essential (primary) hypertension; M19.90 Unspecified osteoarthritis, unspecified site; Z20.822 Contact with and (suspected) exposure to COVID-19; Z79.899 Other long term (current) drug therapy; Z88.0 Allergy status to penicillin; Z88.2 Allergy status to sulfonamides; R74.01 Elevation of levels of liver transaminase levels; G89.4 Chronic pain syndrome; F10.11 Alcohol abuse, in remission; Y90.9 Presence of alcohol in blood, level not specified; E86.1 Hypovolemia; B96.89 Other specified bacterial agents as the cause of diseases classified elsewhere
CPT/HCPCS: 36415; 71045-TC; 76705-TC; 80048-TC; 80061-TC; 80076-TC; 81001; 83605-TC; 83735-TC; 83880; 84100-TC; 84443-TC; 84484-TC; 85025-TC; 85730-TC; 87040-TC; 87081-TC; 87086-TC; 87186-TC; 93307-TC; 97112-TC; 97530-TC; C9803; G0378; J0696; J1650; J3475; J3490; J7030; J7060; U0003

== ENCOUNTER 2021-05-28 10:50 | Inpatient (IN) | payer MEDICARE ==
[~2021-05-28] VITALS: Ht 167.6 cm; Wt 78.9 kg
[~2021-05-28 10:50] MED LIST changes: -AMLO-212 PO; -ATEN25TA PO; +CRAN425C6 PO; +ESZO3TAB39 PO; +FOLI0.4T6 PO; -FURO20TA4 PO; -METH2.5T14 PO; +MULT-447 PO; -POTA10CA43 PO; +THIA50TA10 PO; -VALS80TA2 PO
--- NOTE | 2021-05-28 11:05 | NUR ---
DR DIEGO AT THE BEDSIDE
--- NOTE | 2021-05-28 11:07 | NUR ---
URINE COLLECTED AND SENT TO THE LAB
[2021-05-28] MEDS ORDERED: MEMA5TAB42 PO (11:10)
[2021-05-28] MEDS ORDERED: FURO40TA5 PO (11:10)
[2021-05-28] MEDS ORDERED: DONE5TAB34 PO (11:10)
[2021-05-28 11:21] LABS: BILIRUBIN,URINE LARGE (NEGATIVE); COLOR,URINE YELLOW (YELLOW); LEUKOCYTE ESTERASE ,URINE Large (NEGATIVE); NITRITE, URINE Positive (NEGATIVE); PROTEIN,URINE 100 mg/dl (NEGATIVE); UGLUCOSE 100 MG/DL mg/dL (NEGATIVE); UROBILINOGEN,URINE >=8.0 EU/dL (0.2)
[2021-05-28 11:23] LABS: BACTERIA,URINE 1+ /HPF (None Seen); WBC,URINE 21-50 /HPF (0-3)
[2021-05-28] MEDS ORDERED: VANCOMYCIN 1 GM in IV D5W 250 ML IV ONE (11:30)
[2021-05-28] MEDS ORDERED: IV NS 0.9% 1,000 ML BAG IV ONE (11:30)
[2021-05-28] MEDS ORDERED: MEROPENEM 1,000 MG in IV NS 0.9% 100 ML IV ONE (11:30)
--- NOTE | 2021-05-28 11:36 | NUR ---
MOVE SHEET SUBMITTED AND CALLED FOR TELE BED.
--- NOTE | 2021-05-28 11:49 | NUR ---
MEDICATED PER ERMD ORDER, PT JODI WELL. WILL CONT TO MONITOR.
[2021-05-28 11:58] LABS: BASOPHILS # (AUTO) 0.1 K/uL (0.0-0.2); BASOPHILS % (AUTO) 0.3 % (0.0-2.0); EOSINOPHILS % (AUTO) 0.1 % (0.0-6.0); HEMATOCRIT 32 % (33-45); HEMOGLOBIN 10.4 g/dL (11.5-14.8); LYMPHOCYTES # (AUTO) 0.3 K/uL (0.8-4.8); LYMPHOCYTES % (AUTO) 1.4 % (20.0-44.0); MEAN CORPUSCULAR HGB CONC 33 g/dl (31.0-36.0); MEAN CORPUSCULAR VOLUME 106 fL (82-100); MONOCYTES # (AUTO) 0.5 K/uL (0.1-1.30); MONOCYTES % (AUTO) 2.1 % (2.0-12.0); NEUTROPHILS # (AUTO) 23.4 K/uL (1.8-8.9); NEUTROPHILS % (AUTO) 96.1 % (43.0-81.0); PLATELET COUNT (AUTO) 324 K/uL (150-450); RED BLOOD CELL COUNT(AUTO) 2.98 MIL/uL (4.0-5.2); WHITE BLOOD COUNT (AUTO) 24.3 K/uL (4.3-11.0)
[2021-05-28 12:00] LABS: CALCIUM, SERUM 8.6 mg/dL (8.5-10.1); CARBON DIOXIDE 21 mmol/L (21-32); CHLORIDE 105 mmol/L (98-107); CREATININE 0.7 mg/dL (0.6-1.3); GLUCOSE 133 mg/dL (74-106); POTASSIUM 3.4 mmol/L (3.5-5.1); SODIUM SERUM 140 mmol/L (136-145); UREA NITROGEN, BLOOD 5 mg/dL (7-18)
[2021-05-28 12:06] LABS: ALANINE AMINOTRANSFERASE 225 U/L (12-78); ALBUMIN 2.1 g/dL (3.4-5.0); ALKALINE PHOSPHATASE 304 U/L (46-116); ASPARTATE AMINOTRANSFERASE 430 U/L (15-37); BILIRUBIN,DIRECT 7.6 mg/dL (0.0-0.2); BILIRUBIN,TOTAL 9.1 mg/dL (0.2-1.0); TOTAL PROTEIN, SERUM 5.6 g/dL (6.4-8.2)
--- NOTE | 2021-05-28 12:25 | NUR ---
[facility] CALLED GUN STOCK CHECKER PAGED.
[2021-05-28 12:33] LABS: BAND % (MANUAL) 1 % (0.0-5.0); LYMPHOCYTES % (MANUAL) 1 % (16-48); MONOCYTES % (MANUAL) 1 % (0-11.0); NEUTROPHILS % (MANUAL) 97 (42-76)
--- NOTE | 2021-05-28 12:38 | NUR ---
HOSPITALIST SPEAKING WITH DR. DIEGO
[2021-05-28] MEDS ORDERED: ONDANSETRON HCL/PF 4 MG/2 ML VIAL IVP PRN (13:00)
[2021-05-28] MEDS ORDERED: Z GUARD REMEDY 2 OZ OINT TP PRN (13:00)
[2021-05-28] MEDS ORDERED: ACETAMINOPHEN 325 MG TABLET PO PRN (13:00)
[2021-05-28] MEDS ORDERED: IV NS 0.9% 1,000 ML IV PRN (13:00)
[2021-05-28] MEDS ORDERED: MAGNESIUM HYDROXIDE 30 ML UDC PO PRN (13:00)
[2021-05-28] MEDS ORDERED: IOHEXOL-300 100 ML VIAL IV ONE (13:31)
[2021-05-28] MEDS ORDERED: IV NS 0.9% 250 ML IV ONE (13:32)
[2021-05-28] MEDS ORDERED: CT SWABBABLE VALVE TRANS SET 1 EA INFUS.SET MC ONE (13:32)
--- NOTE | 2021-05-28 14:48 | NUR ---
CALLED AGAIN FOR BED.
--- NOTE | 2021-05-28 15:39 | NUR ---
GOT BED 313
--- NOTE | 2021-05-28 15:51 | NUR ---
REPORT GIVEN TO NURSE DUANE
[2021-05-28 16:00] VITALS: BP 132/63
--- NOTE | 2021-05-28 16:18 | NUR ---
THE PATIENT IS TRANSFERED TO ASSIGNED ROOM IN STABLE CONDITION AND PER ACLS POLICY.
--- NOTE | 2021-05-28 16:30 | NUR ---
TELE ADMISSION NOTES RECEIVED ADMISSION. PATIENT FROM ER. REPORT RECEIVED FROM CLIFF, ER NURSE. PATIENT IS ALERT AND ORIENTED X 3. NO SOB. BREATHING IS EVEN AND UNLABORED. IV ACCESS RAC#20. ORIENTED PATIENT TO UNIT AND STAFF. SAFETY MEASURES IN PLACE WITH BED LOCKED AT LOW POSITION. ORDERS RECEIVED AND CARRIED OUT BY DR. TRANG GLEZ. CALL LIGHT IS WITHIN REACH. WILL CONTINUE TO MONITOR PATIENT THROUGHOUT SHIFT.
[2021-05-28 20:00] VITALS: BP 143/69
--- NOTE | 2021-05-28 20:30 | NUR ---
MS/TELE/RN DURING INITIAL SHIFT ASSESSMENT, PATIENT WAS IN BED AWAKE, ALERT, ORIENTED, PATIENT VERBALIZING ABOUT GOING HOME, BECAUSE SHE SAID "I DON'T BELONG HERE, I AM NOT SICK". INFORMED PATIENT ABOUT HER DIAGNOSIS AND PLAN OF CARE. I TOLD PATIENT THAT THERE IS NO DISCHARGE ORDER YET FROM HER DOCTOR AT THIS TIME AND THAT IF SHE INSISTS OF GOING HOME IT WOULD BE AGAINST MEDICAL ADVICE (AMA), EDUCATED FURTHER THE RISKS OF GOING AMA, PATIENT VERBALIZED UNDERSTANDING AND DECIDED TO STAY. WILL MONITOR.
[2021-05-28] MEDS: MEROPENEM 500 MG in IV NS 0.9% 50 ML IV SCH (21:07)
[2021-05-28] MEDS: IV NS 0.9% 1,000 ML IV PRN (21:07)
[2021-05-28] MEDS: MEMANTINE HCL 5 MG TABLET PO SCH (22:01)
--- NOTE | 2021-05-28 22:57 | NUR ---
MS/TELE/RN IV KEEPS BEEPING, PATIENT NOT ABLE TO STRAIGHT ARM ALL THE TIME, PATIENT IS UNCOMFORTABLE WITH HER RT. AC IV, INSERTED NEW IV AT RT. F/A AND REMOVED THE RT. AC IV.
[2021-05-29] MEDS: MEROPENEM 500 MG in IV NS 0.9% 50 ML IV SCH ×3 (05:06→20:57)
[2021-05-29] MEDS: IV NS 0.9% 1,000 ML IV PRN (05:48)
--- NOTE | 2021-05-29 06:37 | NUR ---
MS/TELE/RN PATIENT IS AWAKE, ALERT, COMFORTABLE, NO DISTRESS NOTED, ALL NEEDS ATTENDED AT THIS TIME, WILL CONTINUE TO MONITOR.
[2021-05-29 06:59] LABS: CALCIUM, SERUM 7.3 mg/dL (8.5-10.1); CREATININE 0.7 mg/dL (0.6-1.3); MAGNESIUM 1.3 mg/dL (1.8-2.4); PHOSPHORUS 1.8 mg/dL (2.5-4.9)
[2021-05-29 07:40] LABS: HEMATOCRIT 24 % (33-45); HEMOGLOBIN 8.3 g/dL (11.5-14.8); MEAN CORPUSCULAR HGB CONC 34 g/dl (31.0-36.0); MEAN CORPUSCULAR VOLUME 105 fL (82-100); PLATELET COUNT (AUTO) 291 K/uL (150-450); RED BLOOD CELL COUNT(AUTO) 2.33 MIL/uL (4.0-5.2); WHITE BLOOD COUNT (AUTO) 15.7 K/uL (4.3-11.0)
--- NOTE | 2021-05-29 07:40 | NUR ---
ACCELERATOR TECHNICIAN OPENING NOTES RECEIVED PATIENT IN BED, AWAKE, A/O X4. PATIENT ON ROOM AIR; BREATHING EVEN AND UNLABORED AT THIS TIME. TELE MONITOR WITH A CURRENT READING OF SR 86 WITH PVC. NO COMPLAINS OF PAIN. RFA IV ACCESS PRESENT AND INTACT INFUSING NS @75 MLS/HR. SAFETY PRECAUTIONS IN PLACE; BED IN LOW POSITION AND LOCKED, RAILS UP X2, CALL LIGHT WITHIN REACH. WILL CONTINUE TO MONITOR PATIENT.
--- NOTE | 2021-05-29 08:14 | NUR ---
WOUND CARE CONSULT: PT EATING AT THIS TIME. RASH TO PERINEUM AND GROIN FOLDS NOTED BY NURSING STAFF. RECOMMENDATIONS MADE FOR SKIN PROTECTION. DISCUSSED WITH NURSING STAFF. MD IN AGREEMENT WITH PLAN OF CARE.
[2021-05-29] MEDS: DONEPEZIL 5 MG TABLET PO SCH (08:25)
[2021-05-29 08:26] VITALS: BP 130/70
[2021-05-29 09:16] LABS: POTASSIUM 2.8 mmol/L (3.5-5.1)
[2021-05-29] MEDS: CLOTRIMAZOLE 1% 15 GM TUBE TP SCH ×2 (09:58→17:39)
[2021-05-29 10:36] LABS: BAND % (MANUAL) 1 % (0.0-5.0); EOSINOPHILS % (MANUAL) 2 % (0-4); LYMPHOCYTES % (MANUAL) 10 % (16-48); METAMYELOCYTES % 1 % (0-0); MONOCYTES % (MANUAL) 3 % (0-11.0); NEUTROPHILS % (MANUAL) 83 (42-76)
--- NOTE | 2021-05-29 12:06 | NUR ---
CLOTH BEAMER NOTES TRIED TO CONTACT MD A FEW TIMES REGARDING PATIENT POTASSIUM LEVEL OF 2.8 NO ORDERS YET RECEIVED.
[2021-05-29 12:18] VITALS: BP 134/70
[2021-05-29] MEDS: Magnesium 1GM/D5W 100ML PREMIX 100 ML IV SCH ×2 (13:24→21:24)
[2021-05-29] MEDS: POTASSIUM PHOSPHATE MM 7.5 MMOL in IV NS 0.9% 100 ML IV SCH ×2 (14:17→17:39)
[2021-05-29 16:04] VITALS: BP 140/99
--- NOTE | 2021-05-29 18:46 | NUR ---
CONCRETE RUBBER CLOSING NOTES PATIENT REMAINS IN BED, AWAKE, A/O X4. PATIENT ON ROOM AIR; BREATHING EVEN AND UNLABORED AT THIS TIME. TELE MONITOR WITH A CURRENT READING OF SR WITH PVC. NO COMPLAINS OF PAIN DURING SHIFT. RFA IV ACCESS PRESENT AND INTACT. ALL NEEDS ATTENDED DURING THE DAY. SAFETY PRECAUTIONS IN PLACE; BED IN LOW POSITION AND LOCKED, RAILS UP X2, CALL LIGHT WITHIN REACH. WILL ENDORSE TO LEAD JAVASCRIPT ENGINEER NURSE.
--- NOTE | 2021-05-29 19:30 | NUR ---
MS/TELE.RN RECEIVED PATIENT IN BED AWAKE, ALERT, ORIENTED, COMFORTABLE, NO C/O PAIN, NO DISTRESS NOTED, CALL LIGHT IN REACH, WILL MONITOR.
[2021-05-29 20:00] VITALS: BP 144/69
[2021-05-29] MEDS: MAG HYDROX/AL HYDROX/SIMETH 30 ML UDC PO PRN (20:58)
[2021-05-29] MEDS: MEMANTINE HCL 5 MG TABLET PO SCH (20:59)
[2021-05-29] MEDS: ZOLPIDEM TARTRATE 5 MG TABLET PO PRN (21:19)
--- NOTE | 2021-05-29 21:24 | NUR ---
MS/TELE/RN C/O STOMACH BURN, MAALOX 30 MLS PO ORDERED WAS GIVEN. WILL MONITOR.
--- NOTE | 2021-05-29 23:03 | NUR ---
MS/TELE/RN PATIENT IS SLEEPING AT THIS TIME, APPEAR COMFORTABLE, NO SIGNS OF DISTRESS NOTED, CALL LIGHT IN REACH, WILL CONTINUE TO MONITOR.
[2021-05-30] VITALS: BP 142/73
[2021-05-30 04:00] VITALS: BP 153/76
[2021-05-30] MEDS: IV NS 0.9% 1,000 ML IV PRN ×2 (04:01→20:05)
[2021-05-30] MEDS: MEROPENEM 500 MG in IV NS 0.9% 50 ML IV SCH ×3 (05:22→22:04)
--- NOTE | 2021-05-30 06:23 | NUR ---
MS/TELE/RN PATIENT IS STILL SLEEPING, APPEAR COMFORTABLE, NO SIGNS OF DISTRESS NOTED, CALL LIGHT IN REACH, ALL NEEDS ATTENDED AT THIS TIME, WILL CONTINUE TO MONITOR.
[2021-05-30 08:00] VITALS: BP 155/89
[2021-05-30] MEDS ORDERED: POTASSIUM PHOSPHATE MM 7.5 MMOL in IV NS 0.9% 100 ML IV SCH (08:30)
[2021-05-30] MEDS ORDERED: Magnesium 1GM/D5W 100ML PREMIX 100 ML IV SCH (08:30)
[2021-05-30] MEDS ORDERED: POTASSIUM CHLORIDE 20 MEQ TAB.PRT.SR PO SCH ×2 (08:40→14:30)
[2021-05-30] MEDS: DONEPEZIL 5 MG TABLET PO SCH (08:45)
[2021-05-30] MEDS: CLOTRIMAZOLE 1% 15 GM TUBE TP SCH ×2 (08:45→18:31)
[2021-05-30 12:52] LABS: ALBUMIN 1.8 g/dL (3.4-5.0); BILIRUBIN,DIRECT 8.2 mg/dL (0.0-0.2); BILIRUBIN,TOTAL 9.8 mg/dL (0.2-1.0); CALCIUM, SERUM 7.6 mg/dL (8.5-10.1); CREATININE 0.6 mg/dL (0.6-1.3); MAGNESIUM 1.9 mg/dL (1.8-2.4); PHOSPHORUS 2.4 mg/dL (2.5-4.9); POTASSIUM 3.2 mmol/L (3.5-5.1); TOTAL PROTEIN, SERUM 5.1 g/dL (6.4-8.2)
[2021-05-30] MEDS ORDERED: K PHOS NEUTRAL 250 MG TABLET PO ONE (14:30)
[2021-05-30 16:17] VITALS: BP 142/75
--- NOTE | 2021-05-30 18:00 | NUR ---
PT. RELUCTANT TO SIGN CONSENT FOR MRCP,BUT DID SIGN AND TEST COMPLETED.
--- NOTE | 2021-05-30 18:36 | NUR ---
REPLACEMENT OF POTASSIUM AND PHOSPHOROUS,NOW WITH NAUSEA. GIVEN ZOFRAN.
[2021-05-30 20:00] VITALS: BP 154/80
--- NOTE | 2021-05-30 20:17 | NUR ---
MS/TELE/RN RECEIVED PATIENT IN BED AWKE, ALERT, ORIENTED, COMFORTABLE, NO C/O PAIN, NO DISTRESS NOTED, IVF INFUSING, CALL LIGHT IN REACH, WILL MONITOR.
[2021-05-30] MEDS: MEMANTINE HCL 5 MG TABLET PO SCH (22:08)
[2021-05-30] MEDS: ZOLPIDEM TARTRATE 5 MG TABLET PO PRN (22:08)
[2021-05-31] VITALS (10 sets, daily range): BP systolic 134–166; BP diastolic 65–90
--- NOTE | 2021-05-31 00:48 | NUR ---
MS/TELE/RN PATIENT IS SLEEPING AT THIS TIME, APPEAR COMFORTABLE, NO SIGNS OF DISTRESS NOTED, CALL LIGHT IN REACH, WILL CONTINUE TO MONITOR.
[2021-05-31] MEDS: MEROPENEM 500 MG in IV NS 0.9% 50 ML IV SCH ×3 (05:31→21:17)
--- NOTE | 2021-05-31 06:10 | NUR ---
MS/TELE/RN PATIENT IS STILL SLEEPING AT THIS TIME, APPEAR COMFORTABLE, NO DISTRESS NOTED, CALL LIGHT IN REACH, ALL NEEDS ATTENDED AT THIS TIME, WILL CONTINUE TO MONITOR.
--- NOTE | 2021-05-31 07:30 | NUR ---
SUPERVISOR ORE DRESSING OPENING NOTES RECEIVED PATIENT AWAKE IN BED IN NO ACUTE SIGNS OF DISTRESS. A/O X3-4. ABLE TO MAKE NEEDS KNOWN, DENIES PAIN OR ANY DISCOMFORTS AT THIS TIME. ON ROOM AIR, BREATHING EVEN AND UNLABORED, NO SOB NOTED. CURRENT TELE-MONITOR READING IS NSR, HR ON THE 80'S, NO C/O CARDIAC DISTRESS VOICED. IV ACCESS ON RFA G#22 INTACT WITH IVF OF NS AT 75ML/HR INFUSING WELL, NO S/S OF INFILTRATION AT SITE NOTED. SAFETY MEASURES IN PLACE: BED IN LOWEST LOCKED POSITION WITH SIDE-RAILS UP X2. CALL LIGHT W/IN REACH. WILL CONTINUE TO MONITOR PT ACCORDINGLY.
[2021-05-31] MEDS: DONEPEZIL 5 MG TABLET PO SCH (08:30)
[2021-05-31] MEDS: CLOTRIMAZOLE 1% 15 GM TUBE TP SCH ×2 (08:31→17:33)
[2021-05-31] MEDS: IV NS 0.9% 1,000 ML IV PRN (10:19)
--- NOTE | 2021-05-31 10:20 | NUR ---
RN NOTES PT FOR ERCP TODAY, PROCEDURES WAS EXPLAINED BY DR GLEZ TO PT AND VERBALIZED UNDERSTANDING. ALL CONSENTS SIGNED. NPO ENFORCED IMMEDIATELY.
[2021-05-31 12:05] LABS: BASOPHILS # (AUTO) 0.1 K/uL (0.0-0.2); BASOPHILS % (AUTO) 0.9 % (0.0-2.0); HEMATOCRIT 24 % (33-45); HEMOGLOBIN 8.2 g/dL (11.5-14.8); LYMPHOCYTES # (AUTO) 3.1 K/uL (0.8-4.8); LYMPHOCYTES % (AUTO) 46.3 % (20.0-44.0); MEAN CORPUSCULAR HGB CONC 34 g/dl (31.0-36.0); MEAN CORPUSCULAR VOLUME 108 fL (82-100); MONOCYTES # (AUTO) 0.4 K/uL (0.1-1.30); MONOCYTES % (AUTO) 5.4 % (2.0-12.0); NEUTROPHILS # (AUTO) 2.8 K/uL (1.8-8.9); NEUTROPHILS % (AUTO) 42.4 % (43.0-81.0); PLATELET COUNT (AUTO) 283 K/uL (150-450); RED BLOOD CELL COUNT(AUTO) 2.25 MIL/uL (4.0-5.2); WHITE BLOOD COUNT (AUTO) 6.6 K/uL (4.3-11.0)
[2021-05-31 12:19] LABS: ALBUMIN 1.6 g/dL (3.4-5.0); BILIRUBIN,DIRECT 6.2 mg/dL (0.0-0.2); BILIRUBIN,TOTAL 7.2 mg/dL (0.2-1.0); CALCIUM, SERUM 7.5 mg/dL (8.5-10.1); CREATININE 0.8 mg/dL (0.6-1.3); MAGNESIUM 1.6 mg/dL (1.8-2.4); PHOSPHORUS 2.5 mg/dL (2.5-4.9); POTASSIUM 3.6 mmol/L (3.5-5.1); TOTAL PROTEIN, SERUM 4.4 g/dL (6.4-8.2)
[2021-05-31] MEDS: Magnesium 1GM/D5W 100ML PREMIX 100 ML IV SCH ×2 (14:34→15:37)
[2021-05-31] MEDS ORDERED: IOHEXOL 240MG/ML 100 ML IV ONE (15:32)
[2021-05-31] MEDS ORDERED: ANESTHESIA TRAY IN PYXIS 1 EA TRAY MC ONE (15:32)
[2021-05-31] MEDS ORDERED: INDOMETHACIN 50 MG SUPP.RECT ONE (15:33)
--- NOTE | 2021-05-31 15:46 | NUR ---
RN NOTES PT PICKED-UP BY Bel YADAV VIA HER BED FOR ERCP
--- NOTE | 2021-05-31 17:39 | NUR ---
RN NOTES PT RETURNED FROM ERCP ACCOMPANIED BY ELYSIA LLOYD RN. PT AWAKE, ALERT BUT SLIGHTLY LETHARGIC. V/S CHECKED AND RECORDED. DR GLEZ MADE AWARE WITH ORDER TO RESUME PT'S PREVIOUS DIET.
--- NOTE | 2021-05-31 18:46 | NUR ---
PARTS DATA WRITER CLOSING NOTES PATIENT IN BED AWAKE AND WATCHING TV AT THIS TIME. A/O X3-4. ABLE TO MAKE NEEDS KNOWN. ON ROOM AIR, BREATHING EVEN AND UNLABORED, NO SOB NOTED. ON EXTERNAL CARDIAC TELE-MONITOR WITH CURRENT READING OF NSR, HR ON THE 80'S, NO C/O CARDIAC DISTRESS VOICED DURING SHIFT. IV ACCESS ON RFA G#22 INTACT WITH IVF OF NS @ 75ML/HR INFUSING WELL, NO S/S OF INFILTRATION AT SITE NOTED. ALL NEEDS AND CARE ATTENDED WELL. SAFETY MEASURES IN PLACE: BED IN LOWEST LOCKED POSITION WITH SIDE-RAILS UP X2. CALL LIGHT W/IN REACH. WILL ENDORSE CARLOS TO WEAVER AXMINSTER NURSE.
--- NOTE | 2021-05-31 19:30 | NUR ---
RN OPENING NOTE PATIENT IN BED AWAKE TALKING ON THE PHONE, PATIENT IS A/O X 3 AT THIS TIME, ABLE TO MAKE NEEDS KNOWN. BREATHING EVEN AND UNLABORED, TOLERATING RA. TELE MONITOR READS SR 89 BPM. PATIENT HAS A RFA 22 G RUNNING NS AT 75 ML/HR. PATIENT REPORTS NO PAIN AT THIS TIME. SAFETY MEASURES IN PLACE: BED LOCKED AND IN LOWEST POSITION, CALL LIGHT WITHIN REACH, SIDE RAILS UP, BED ALARM ON. WILL MONITOR PATIENT CLOSELY.
[2021-05-31] MEDS: MEMANTINE HCL 5 MG TABLET PO SCH (21:17)
[2021-05-31] MEDS: MAG HYDROX/AL HYDROX/SIMETH 30 ML UDC PO PRN (23:25)
--- NOTE | 2021-05-31 23:39 | NUR ---
RN NOTE PATIENT COMPLAINING OF INDIGESTION, MAALOX GIVEN
[2021-06-01 00:44] VITALS: BP 129/71
--- NOTE | 2021-06-01 04:09 | NUR ---
RN NOTE PATIENT REFUSING PHOTOS TAKEN FOR SKIN ISSUES. STATES THAT IT IS VERY INSULTING FOR US TO ASK THIS AND DO THIS. EXPLAINED TO PATIENT OUR PROTOCOL REGARDING WOUND/SKIN ASSESSMENT EACH WEEK. PATIENT STATES THAT "NOW IS NOT A GOOD TIME, MY SKIN IS FINE" SHE ALSO SAYS THAT SHE WOULD LIKE IT TO BE DONE AT 10 AM. REFUSING TO HAVE A DIAPER CHANGE NOW WELL.
[2021-06-01] MEDS: MEROPENEM 500 MG in IV NS 0.9% 50 ML IV SCH (04:20)
[2021-06-01] MEDS: IV NS 0.9% 1,000 ML IV PRN (04:20)
[2021-06-01 04:44] VITALS: BP 152/80
--- NOTE | 2021-06-01 06:54 | NUR ---
RN CLOSING NOTE PATIENT IN BED, AWAKE. A/O X 3 AT THIS TIME. PATIENT REFUSED AM LABS, DIAPER CHANGE, AND SKIN ASSESSMENT. PATIENT IS ON RA, TOLERATING WELL. TELE MONITOR READS SR 78 WITH PACS. PATIENT HAS ON GOING NS @ 75 ML/HR ON RFA 22 G. NO COMPLAINS OF PAIN AT THIS TIME. SAFETY MEASURES IMPLEMENTED, ALL ORDERS CARRIED OUT, ALL NEEDS MET AND ATTENDED. WILL ENDORSE TO DAY SHIFT NURSE FOR CARLOS.
--- NOTE | 2021-06-01 07:29 | NUR ---
BOARD CATCHER OPENING NOTES PATIENT RECEIVED AWAKE IN BED IN NO ACUTE SIGNS OF DISTRESS. HOB ELEVATED. PT IS A/O X4. ABLE TO MAKE NEEDS KNOWN, DENIES PAIN OR ANY DISCOMFORTS AT THIS TIME. ON ROOM AIR, BREATHING EVEN AND UNLABORED, NO SOB NOTED AT THIS TIME. CURRENT TELE-MONITOR READING IS NSR, HR 87, NO C/O CARDIAC DISTRESS VOICED. IV ACCESS ON RFA #2 INTACT AND PATENT, IVF OF NS RUNNING AT 75ML/HR, NO S/S OF INFILTRATION AT SITE NOTED. SAFETY MEASURES IN PLACE: BED IN LOWEST LOCKED POSITION WITH SIDE-RAILS UP X2. CALL LIGHT W/IN REACH. WILL CONTINUE TO MONITOR PT ACCORDINGLY.
[2021-06-01 08:00] VITALS: BP 150/76
[2021-06-01] MEDS: DONEPEZIL 5 MG TABLET PO SCH (08:25)
[2021-06-01] MEDS: CLOTRIMAZOLE 1% 15 GM TUBE TP SCH (08:26)
[2021-06-01 09:28] LABS: BASOPHILS # (AUTO) 0.1 K/uL (0.0-0.2); BASOPHILS % (AUTO) 1.3 % (0.0-2.0); EOSINOPHILS % (AUTO) 7.4 % (0.0-6.0); HEMATOCRIT 27 % (33-45); HEMOGLOBIN 9.2 g/dL (11.5-14.8); LYMPHOCYTES # (AUTO) 2.1 K/uL (0.8-4.8); LYMPHOCYTES % (AUTO) 23.5 % (20.0-44.0); MEAN CORPUSCULAR HGB CONC 34 g/dl (31.0-36.0); MEAN CORPUSCULAR VOLUME 108 fL (82-100); MONOCYTES # (AUTO) 0.7 K/uL (0.1-1.30); MONOCYTES % (AUTO) 8.4 % (2.0-12.0); NEUTROPHILS # (AUTO) 5.2 K/uL (1.8-8.9); NEUTROPHILS % (AUTO) 59.4 % (43.0-81.0); PLATELET COUNT (AUTO) 310 K/uL (150-450); RED BLOOD CELL COUNT(AUTO) 2.54 MIL/uL (4.0-5.2); WHITE BLOOD COUNT (AUTO) 8.8 K/uL (4.3-11.0)
[2021-06-01 09:51] LABS: ALBUMIN 1.7 g/dL (3.4-5.0); BILIRUBIN,DIRECT 6.6 mg/dL (0.0-0.2); BILIRUBIN,TOTAL 7.7 mg/dL (0.2-1.0); CALCIUM, SERUM 7.9 mg/dL (8.5-10.1); CREATININE 0.7 mg/dL (0.6-1.3); MAGNESIUM 1.8 mg/dL (1.8-2.4); PHOSPHORUS 2.1 mg/dL (2.5-4.9); POTASSIUM 3.4 mmol/L (3.5-5.1); TOTAL PROTEIN, SERUM 4.7 g/dL (6.4-8.2)
[2021-06-01 10:11] LABS: EOSINOPHILS % (MANUAL) 14 % (0-4); LYMPHOCYTES % (MANUAL) 22 % (16-48); MONOCYTES % (MANUAL) 6 % (0-11.0); NEUTROPHILS % (MANUAL) 58 (42-76)
--- NOTE | 2021-06-01 10:29 | NUR ---
RN NOTES ASKED PATIENT IF I CAN TAKE PHOTOS OF HER SKIN ISSUES BEFORE DISCHARGE, SHE REFUSED AND STATED THAT HER SKIN IS THE SAME WHEN SHE WAS ADMITTED AND IT JUST A WASTE OF TIME TO TAKE PHOTOS.
--- NOTE | 2021-06-01 11:30 | NUR ---
SS consult: SS consult requested for pt with a hx of alcohol use. Pt is a 80-year-old, female. Pt was alert and oriented x3, person, place and time. Pt was not oriented to situation. Pt presented irritable with an anxious affect. Per chart, pt was brought in by ambulance from home on 05/28/21 for failure to thrive. Pt presented paranoid throughout interview with this SW and was becoming irritable when asked questions. At times, pt was responding by asking SW the same question. Pt stated that she currently lives at [address] [place] [address]; [phone]. Pt stated that she has homehealth. Pt has access to social support and stated that she has support from her niece, Jodi ([phone]) and nephew, Matti. Pt denied history of substance use. Pt denied history of mental illness. Pt denied SI/HI. SW offered the pt senior resources. Pt declined the resources. SW discussed discharge plans with the pt. Pt stated that she plans to return to her prior living arrangement at home. Pt stated that her nephew, Matti or her niece, Jodi would provide transportation. PLAN: Pt plans to return to her prior living arrangement at home at the time of D/C. No further SS intervention at this time, however, SW will remain available as needed.
[2021-06-01] MEDS ORDERED: K PHOS NEUTRAL 250 MG TABLET PO ONE (12:00)
[2021-06-01] MEDS ORDERED: POTASSIUM CHLORIDE 20 MEQ TAB.PRT.SR PO SCH (12:00)
--- NOTE | 2021-06-01 14:40 | NUR ---
RN DISCHARGED NOTES PT DISCHARGED HOME IN STABLE CONDITION. SHE A/O X4. ALL NEEDS ATTENDED WELL. V/S TAKEN, RECORDED AND STABLE. PT REFUSED PHOTOS OF SKIN ISSUES TO BE TAKEN SINCE FROM PREVIOUS SHIFT. ALL BELONGINGS ACCOUNTED FOR AND SIGNED FORM. IV ACCESS ON RFA G#22 REMOVED WITH NO ACTIVE BLEEDING NOTED, DRY DRESSING APPLIED TO SITE. NAME ARMBAND REMOVED. PT EDUCATED ON ALCOHOL CESSATION AND DISCHARGE INSTRUCTION, SHE VERBALIZED UNDERSTANDING. PT LEFT UNIT VIA WHEELCHAIR AT 1430 ACCOMPANIED BY ME. PT'S NEPHEW LIZETH AT THE [facility] AND WILL TAKE PT'S HOME. CHARGE NURSE AWARE OF DISCHARGE.
== END 2021-06-01 15:00 | disposition home or self-care (01) | DRG 871 ==
LOC: ER 10:53 → TELE 15:46 → MED 06-01 10:15
PROVIDERS: ADMIT Internal Medicine; ATTEND Internal Medicine
PROC: 0FC98ZZ Extirpation of Matter from Common Bile Duct, Via Natural or Artificial Opening Endoscopic (ICD-10-PCS; principal; 2021-05-31)
DX: A41.9 Sepsis, unspecified organism (principal); E43 Unspecified severe protein-calorie malnutrition; G93.41 Metabolic encephalopathy; N39.0 Urinary tract infection, site not specified; M48.55XA Collapsed vertebra, not elsewhere classified, thoracolumbar region, initial encounter for fracture; E87.2 Acidosis; K80.43 Calculus of bile duct with acute cholecystitis with obstruction; I10 Essential (primary) hypertension; K57.90 Diverticulosis of intestine, part unspecified, without perforation or abscess without bleeding; Z20.822 Contact with and (suspected) exposure to COVID-19; Z88.0 Allergy status to penicillin; Z88.2 Allergy status to sulfonamides; E80.6 Other disorders of bilirubin metabolism; Z79.899 Other long term (current) drug therapy; D53.9 Nutritional anemia, unspecified; K21.9 Gastro-esophageal reflux disease without esophagitis; K76.0 Fatty (change of) liver, not elsewhere classified; F03.90 Unspecified dementia, unspecified severity, without behavioral disturbance, psychotic disturbance, mood disturbance, and anxiety; E87.6 Hypokalemia; E83.42 Hypomagnesemia; E83.39 Other disorders of phosphorus metabolism; B96.4 Proteus (mirabilis) (morganii) as the cause of diseases classified elsewhere
CPT/HCPCS: 36415; 71045-TC; 74018; 74181-TC; 76700-TC; 80048-TC; 80076-TC; 81001; 83605-TC; 83735-TC; 84100-TC; 84484-TC; 85025-TC; 85730-TC; 87040-TC; 87081-TC; 87086-TC; 87186-TC; C9803; G0378; J0330; J0461; J2185; J2405; J2704; J3370; J3475; J3490; J7030; J7050; J7060; Q9966; Q9967

== ENCOUNTER 2021-10-01 08:49 | Emergency (ER) | payer MEDICARE ==
[~2021-10-01] VITALS: Ht 167.6 cm; Wt 66.2 kg
[~2021-10-01 08:49] MED LIST changes: -CRAN425C6 PO; +DONE5TAB34 PO; +FURO40TA5 PO; +MEMA5TAB42 PO
--- NOTE | 2021-10-01 08:57 | NUR ---
call from janis Clifton who takes care of her,cell # [phone]
--- NOTE | 2021-10-01 09:00 | NUR ---
Patient denies ANY medical complaints states "I called 911 since I could NOT get hold of my -Erika. I really have no complaints"
--- NOTE | 2021-10-01 09:08 | NUR ---
FERNANDA CAREGIVER WILL HOUSEHOLD REFRIGERATION MECHANIC THE PATIENT
[2021-10-01 09:21] LABS: BASOPHILS # (AUTO) 0.1 K/uL (0.0-0.2); BASOPHILS % (AUTO) 0.6 % (0.0-2.0); EOSINOPHILS % (AUTO) 16.6 % (0.0-6.0); HEMATOCRIT 33 % (33-45); HEMOGLOBIN 11.2 g/dL (11.5-14.8); LYMPHOCYTES % (AUTO) 10.7 % (20.0-44.0); MEAN CORPUSCULAR HGB CONC 34 g/dl (31.0-36.0); MEAN CORPUSCULAR VOLUME 112 fL (82-100); MONOCYTES # (AUTO) 0.7 K/uL (0.1-1.30); MONOCYTES % (AUTO) 7.4 % (2.0-12.0); NEUTROPHILS # (AUTO) 6.1 K/uL (1.8-8.9); NEUTROPHILS % (AUTO) 64.7 % (43.0-81.0); PLATELET COUNT (AUTO) 363 K/uL (150-450); RED BLOOD CELL COUNT(AUTO) 2.92 MIL/uL (4.0-5.2); WHITE BLOOD COUNT (AUTO) 9.4 K/uL (4.3-11.0)
[2021-10-01] MEDS ORDERED: IV NS 0.9% 1,000 ML BAG IV ONE ×2 (09:30)
[2021-10-01 09:55] LABS: ALANINE AMINOTRANSFERASE 60 U/L (12-78); ALBUMIN 1.9 g/dL (3.4-5.0); ALCOHOL, BLOOD < 3 mg/dL (0-0); ALKALINE PHOSPHATASE 217 U/L (46-116); ASPARTATE AMINOTRANSFERASE 121 U/L (15-37); BILIRUBIN,DIRECT 2.2 mg/dL (0.0-0.2); BILIRUBIN,TOTAL 3.1 mg/dL (0.2-1.0); CARBON DIOXIDE 27 mmol/L (21-32); CHLORIDE 101 mmol/L (98-107); CREATININE 0.8 mg/dL (0.6-1.3); GLUCOSE 110 mg/dL (74-106); POTASSIUM 3.2 mmol/L (3.5-5.1); SODIUM SERUM 139 mmol/L (136-145); TOTAL PROTEIN, SERUM 5.7 g/dL (6.4-8.2); UREA NITROGEN, BLOOD 10 mg/dL (7-18)
[2021-10-01 10:01] LABS: ACETAMINOPHEN 0 ug/ml (10-30)
--- NOTE | 2021-10-01 10:43 | NUR ---
[facility] CALLED ETA 90 MINS.
--- NOTE | 2021-10-01 13:29 | NUR ---
GAVE REPORT TO AMBULAMCE STAFF
--- NOTE | 2021-10-01 13:33 | NUR ---
Patient discharged to home in stable condition. Written and verbal after care instructions given. Patient verbalizes understanding of instruction.
[2021-10-01 13:34] VITALS: BP 135/62
[2021-10-01 15:11] LABS: BAND % (MANUAL) 1 % (0.0-5.0); EOSINOPHILS % (MANUAL) 20 % (0-4); LYMPHOCYTES % (MANUAL) 10 % (16-48); MONOCYTES % (MANUAL) 2 % (0-11.0); NEUTROPHILS % (MANUAL) 67 (42-76)
== END 2021-10-01 13:34 | disposition home or self-care (01) ==
LOC: ER 08:54
DX: R74.01 Elevation of levels of liver transaminase levels (principal); R53.1 Weakness; I10 Essential (primary) hypertension; Z88.0 Allergy status to penicillin; Z88.2 Allergy status to sulfonamides; Z79.899 Other long term (current) drug therapy
CPT/HCPCS: 36415; 80048; 80076; 80143; 80320; 85007; 85025; 96360; 96361; 99283; J7030 ×2; G0480

== ENCOUNTER 2021-10-28 09:44 | Inpatient (IN) | payer MEDICARE ==
[~2021-10-28] VITALS: Ht 167.6 cm; Wt 68.0 kg
[2021-10-28] MEDS ORDERED: ACET-868 PO (10:09)
[2021-10-28] MEDS ORDERED: DONE5TAB34 PO (10:10)
[2021-10-28] MEDS ORDERED: IV NS 0.9% 1,000 ML IV ONE (10:30)
[2021-10-28] MEDS ORDERED: CEFEPIME 1 GM in IV D5W 50 ML IV ONE (10:30)
[2021-10-28] MEDS ORDERED: ACETAMINOPHEN 650 MG/SUPP.RECT RC ONE ×2 (10:30→10:47)
[2021-10-28] MEDS ORDERED: IV NS 0.9% 1,000 ML BAG IV ONE (10:30)
[2021-10-28] MEDS ORDERED: VANCOMYCIN 1 GM in IV D5W 250 ML IV ONE (10:30)
[2021-10-28 10:36] LABS: BASOPHILS # (AUTO) 0.1 K/uL (0.0-0.2); BASOPHILS % (AUTO) 0.5 % (0.0-2.0); HEMATOCRIT 34 % (33-45); HEMOGLOBIN 11.1 g/dL (11.5-14.8); LYMPHOCYTES # (AUTO) 1.1 K/uL (0.8-4.8); LYMPHOCYTES % (AUTO) 8.3 % (20.0-44.0); MEAN CORPUSCULAR HGB CONC 33 g/dl (31.0-36.0); MEAN CORPUSCULAR VOLUME 110 fL (82-100); MONOCYTES # (AUTO) 0.9 K/uL (0.1-1.30); MONOCYTES % (AUTO) 6.6 % (2.0-12.0); NEUTROPHILS # (AUTO) 11.5 K/uL (1.8-8.9); NEUTROPHILS % (AUTO) 84.6 % (43.0-81.0); PLATELET COUNT (AUTO) 362 K/uL (150-450); RED BLOOD CELL COUNT(AUTO) 3.07 MIL/uL (4.0-5.2); WHITE BLOOD COUNT (AUTO) 13.6 K/uL (4.3-11.0)
[2021-10-28 10:46] LABS: CALCIUM, SERUM 8.3 mg/dL (8.5-10.1); CARBON DIOXIDE 28 mmol/L (21-32); CHLORIDE 108 mmol/L (98-107); CREATININE 1.3 mg/dL (0.6-1.3); GLUCOSE 101 mg/dL (74-106); POTASSIUM 4.3 mmol/L (3.5-5.1); SODIUM SERUM 146 mmol/L (136-145); UREA NITROGEN, BLOOD 21 mg/dL (7-18)
[2021-10-28 10:51] LABS: ALANINE AMINOTRANSFERASE 40 U/L (12-78); ALBUMIN 1.6 g/dL (3.4-5.0); ALKALINE PHOSPHATASE 226 U/L (46-116); ASPARTATE AMINOTRANSFERASE 78 U/L (15-37); BILIRUBIN,DIRECT 1.3 mg/dL (0.0-0.2); BILIRUBIN,TOTAL 2.7 mg/dL (0.2-1.0); TOTAL PROTEIN, SERUM 6.5 g/dL (6.4-8.2)
[2021-10-28] MEDS ORDERED: DILTIAZEM HCL 25 MG IV IVP ONE (11:00)
[2021-10-28] MEDS ORDERED: DILTIAZEM HCL 25 MG IV ONE (11:09)
[2021-10-28 11:23] LABS: BILIRUBIN,URINE SMALL (NEGATIVE); COLOR,URINE YELLOW (YELLOW); LEUKOCYTE ESTERASE ,URINE LARGE (NEGATIVE); NITRITE, URINE NEGATIVE (NEGATIVE); PROTEIN,URINE 100 mg/dl (NEGATIVE); UGLUCOSE NEGATIVE (NEGATIVE)
[2021-10-28] MEDS: DILTIAZEM HCL IV 125 MG in IV D5W 100 ML IV ONE (11:58)
[2021-10-28 12:41] LABS: SERUM AMMONIA 12 umol/L (11-32)
[2021-10-28 14:37] LABS: LYMPHOCYTES % (MANUAL) 5 % (16-48); MONOCYTES % (MANUAL) 10 % (0-11.0); NEUTROPHILS % (MANUAL) 85 (42-76)
[2021-10-28 15:04] LABS: RBC,URINE 15-25 /HPF (0-2); WBC,URINE MANY /HPF (0-3)
[2021-10-28 15:05] LABS: BACTERIA,URINE Moderate /HPF (None Seen); SQUAMOUS EPITHELIAL CELL,UR Moderate /HPF (None Seen); URINE AMORPHOUS URATE Moderate /HPF (None Seen)
[2021-10-28 16:06] LABS: THYROID STIMULATING HORMONE 1.044 uIU/mL (0.358-3.74)
[2021-10-28] MEDS ORDERED: DILTIAZEM HCL 50 MG IV IV ONE (16:30)
[2021-10-28] MEDS ORDERED: DILTIAZEM HCL 50 MG IV ONE (16:34)
[2021-10-28 17:07] LABS: ACETAMINOPHEN < 2 ug/ml (10-30)
[2021-10-28] MEDS ORDERED: Z GUARD REMEDY 4 OZ OINT TP PRN (21:30)
[2021-10-28] MEDS ORDERED: AMIODARONE 450 MG in IV D5W 241 ML IV PRN (21:30)
[2021-10-28] MEDS ORDERED: MORPHINE SULFATE INJ 2 MG/ML DISP.SYRIN IV PRN (21:30)
[2021-10-28] MEDS ORDERED: ACETAMINOPHEN 325 MG TABLET PO PRN (21:30)
[2021-10-28] MEDS ORDERED: AMIODARONE 150 MG in IV D5W 100 ML IV ONE (21:30)
[2021-10-28] MEDS ORDERED: ONDANSETRON HCL/PF 4 MG/2 ML VIAL IVP PRN (21:30)
[2021-10-28] MEDS ORDERED: AMIODARONE 150 MG/3 ML VIAL IV ONE (21:54)
[2021-10-28] MEDS ORDERED: ENOXAPARIN SODIUM 40 MG/0.4 ML DISP.SYRIN SQ ONE (21:55)
[2021-10-28] MEDS: ENOXAPARIN SODIUM 40 MG/0.4 ML DISP.SYRIN SQ SCH (22:02)
[2021-10-29] MEDS: IV LR 1000 ML 1,000 ML IV PRN ×2 (01:26→23:05)
[2021-10-29 06:03] LABS: BASOPHILS # (AUTO) 0.1 K/uL (0.0-0.2); BASOPHILS % (AUTO) 0.5 % (0.0-2.0); EOSINOPHILS % (AUTO) 0.1 % (0.0-6.0); HEMATOCRIT 29 % (33-45); HEMOGLOBIN 9.8 g/dL (11.5-14.8); LYMPHOCYTES # (AUTO) 1.5 K/uL (0.8-4.8); LYMPHOCYTES % (AUTO) 8.4 % (20.0-44.0); MEAN CORPUSCULAR HGB CONC 33 g/dl (31.0-36.0); MEAN CORPUSCULAR VOLUME 109 fL (82-100); MONOCYTES # (AUTO) 1.5 K/uL (0.1-1.30); MONOCYTES % (AUTO) 8.4 % (2.0-12.0); NEUTROPHILS # (AUTO) 14.5 K/uL (1.8-8.9); NEUTROPHILS % (AUTO) 82.6 % (43.0-81.0); PLATELET COUNT (AUTO) 319 K/uL (150-450); RED BLOOD CELL COUNT(AUTO) 2.69 MIL/uL (4.0-5.2); WHITE BLOOD COUNT (AUTO) 17.6 K/uL (4.3-11.0)
[2021-10-29 06:29] LABS: CALCIUM, SERUM 7.8 mg/dL (8.5-10.1); CREATININE 1.2 mg/dL (0.6-1.3); MAGNESIUM 1.6 mg/dL (1.8-2.4); PHOSPHORUS 2.9 mg/dL (2.5-4.9); TOTAL PROTEIN, SERUM 5.7 g/dL (6.4-8.2)
[2021-10-29 06:36] LABS: ALBUMIN 1.5 g/dL (3.4-5.0)
[2021-10-29 06:39] LABS: THYROID STIMULATING HORMONE 1.118 uIU/mL (0.358-3.74)
[2021-10-29 06:40] LABS: POTASSIUM 2.6 mmol/L (3.5-5.1)
[2021-10-29] MEDS: POTASSIUM CL. PREMIX PERIPHER. 50 ML IV SCH ×10 (08:30→18:12)
[2021-10-29] MEDS ORDERED: PANTOPRAZOLE 40 MG VIAL ONE (08:45)
[2021-10-29] MEDS ORDERED: Magnesium 1GM/D5W 100ML PREMIX 100 ML IV ONE ×2 (08:45→09:39)
[2021-10-29] MEDS ORDERED: POTASSIUM CL. PREMIX PERIPHER. 50 ML ONE ×8 (08:46→15:37)
[2021-10-29] MEDS: Magnesium 1GM/D5W 100ML PREMIX 100 ML IV SCH ×3 (09:00→10:03)
[2021-10-29] MEDS: PANTOPRAZOLE 40 MG VIAL IV SCH (09:00)
[2021-10-29] MEDS ORDERED: DIATR MEGLU/DIATRIZOATE SODIUM 120 ML BOTTLE (GASTROGRAPHIN) ONE (11:27)
[2021-10-29] MEDS: MEROPENEM 1 G in IV NS 0.9% 100 ML IV SCH ×2 (12:00→22:51)
[2021-10-29] MEDS ORDERED: CEFEPIME 2 GM in IV D5W 100 ML IV SCH (13:00)
[2021-10-29] MEDS ORDERED: METRONIDAZOLE 500MG/ NS 100ML 500 MG in PREMIX 1 EA IV SCH (13:00)
[2021-10-29 14:14] LABS: BAND % (MANUAL) 1 % (0.0-5.0); LYMPHOCYTES % (MANUAL) 8 % (16-48); MONOCYTES % (MANUAL) 3 % (0-11.0); NEUTROPHILS % (MANUAL) 88 (42-76)
[2021-10-29] MEDS ORDERED: DIATR MEGLU/DIATRIZOATE SODIUM 30 ML BOTTLE (GASTROGRAPHIN) ONE (14:20)
[2021-10-29] MEDS ORDERED: IV NS 0.9% 250 ML IV ONE (17:35)
[2021-10-29] MEDS ORDERED: IOHEXOL-300 100 ML VIAL IV ONE (17:35)
[2021-10-29 20:00] VITALS: BP 103/72
[2021-10-29] MEDS: ENOXAPARIN SODIUM 40 MG/0.4 ML DISP.SYRIN SQ SCH (21:27)
[2021-10-30] VITALS: BP 120/55
[2021-10-30] MEDS ORDERED: VANCOMYCIN 1 GM VIAL ONE ×2 (02:27→02:30)
[2021-10-30] MEDS ORDERED: VANCOMYCIN 1.25 GM in IV D5W 250 ML IV ONE (02:30)
[2021-10-30 04:00] VITALS: BP 133/65
[2021-10-30 07:04] LABS: BILIRUBIN,TOTAL 1.4 mg/dL (0.2-1.0); CALCIUM, SERUM 8.2 mg/dL (8.5-10.1); MAGNESIUM 2.2 mg/dL (1.8-2.4); PHOSPHORUS 3.1 mg/dL (2.5-4.9); TOTAL PROTEIN, SERUM 5.2 g/dL (6.4-8.2)
[2021-10-30 07:05] LABS: BASOPHILS % (AUTO) 0.2 % (0.0-2.0); EOSINOPHILS % (AUTO) 0.4 % (0.0-6.0); HEMATOCRIT 27 % (33-45); LYMPHOCYTES # (AUTO) 1.4 K/uL (0.8-4.8); MEAN CORPUSCULAR HGB CONC 33 g/dl (31.0-36.0); MEAN CORPUSCULAR VOLUME 111 fL (82-100); MONOCYTES # (AUTO) 1.3 K/uL (0.1-1.30); MONOCYTES % (AUTO) 8.7 % (2.0-12.0); NEUTROPHILS # (AUTO) 12.7 K/uL (1.8-8.9); NEUTROPHILS % (AUTO) 81.7 % (43.0-81.0); PLATELET COUNT (AUTO) 240 K/uL (150-450); RED BLOOD CELL COUNT(AUTO) 2.45 MIL/uL (4.0-5.2); WHITE BLOOD COUNT (AUTO) 15.5 K/uL (4.3-11.0)
[2021-10-30 07:21] LABS: ALBUMIN 1.3 g/dL (3.4-5.0)
[2021-10-30] MEDS: PANTOPRAZOLE 40 MG VIAL IV SCH (08:14)
[2021-10-30] MEDS: POTASSIUM CL. PREMIX PERIPHER. 50 ML IV SCH ×10 (08:18→21:54)
[2021-10-30 08:46] VITALS: BP 99/76
[2021-10-30 13:47] VITALS: BP 90/62
[2021-10-30] MEDS: MEROPENEM 1 G in IV NS 0.9% 100 ML IV SCH ×2 (14:53→22:21)
[2021-10-30] MEDS: DIGOXIN INJ 0.5 MG/2 ML AMPUL IV SCH ×2 (14:57→17:53)
[2021-10-30 16:50] VITALS: BP 127/57
[2021-10-30] MEDS: VANCOMYCIN 0.75 GM in IV D5W 250 ML IV SCH (17:57)
[2021-10-30 20:00] VITALS: BP 143/99
[2021-10-30] MEDS: ENOXAPARIN SODIUM 40 MG/0.4 ML DISP.SYRIN SQ SCH (21:12)
[2021-10-31] VITALS: BP 116/71
[2021-10-31] MEDS: DIGOXIN INJ 0.5 MG/2 ML AMPUL IV SCH (00:32)
[2021-10-31 04:00] VITALS: BP 132/71
[2021-10-31] MEDS: VANCOMYCIN 0.75 GM in IV D5W 250 ML IV SCH ×2 (05:15→18:35)
[2021-10-31 06:15] LABS: BASOPHILS # (AUTO) 0.1 K/uL (0.0-0.2); BASOPHILS % (AUTO) 0.4 % (0.0-2.0); EOSINOPHILS % (AUTO) 1.7 % (0.0-6.0); HEMATOCRIT 28 % (33-45); HEMOGLOBIN 9.3 g/dL (11.5-14.8); LYMPHOCYTES # (AUTO) 1.5 K/uL (0.8-4.8); LYMPHOCYTES % (AUTO) 10.1 % (20.0-44.0); MEAN CORPUSCULAR HGB CONC 33 g/dl (31.0-36.0); MEAN CORPUSCULAR VOLUME 111 fL (82-100); MONOCYTES # (AUTO) 1.4 K/uL (0.1-1.30); MONOCYTES % (AUTO) 9.3 % (2.0-12.0); NEUTROPHILS # (AUTO) 11.5 K/uL (1.8-8.9); NEUTROPHILS % (AUTO) 78.5 % (43.0-81.0); PLATELET COUNT (AUTO) 230 K/uL (150-450); RED BLOOD CELL COUNT(AUTO) 2.54 MIL/uL (4.0-5.2); WHITE BLOOD COUNT (AUTO) 14.7 K/uL (4.3-11.0)
[2021-10-31 06:20] LABS: PHOSPHORUS 2.6 mg/dL (2.5-4.9); POTASSIUM 4.3 mmol/L (3.5-5.1)
[2021-10-31 08:00] VITALS: BP 109/74
[2021-10-31] MEDS ORDERED: OLANZAPINE 10 MG VIAL IM ONE (10:00)
[2021-10-31] MEDS: PANTOPRAZOLE 40 MG VIAL IV SCH (10:16)
[2021-10-31] MEDS: MEROPENEM 1 G in IV NS 0.9% 100 ML IV SCH ×2 (10:20→22:40)
[2021-10-31 16:00] VITALS: BP 165/88
[2021-10-31 20:16] VITALS: BP 104/62
[2021-10-31] MEDS: ENOXAPARIN SODIUM 40 MG/0.4 ML DISP.SYRIN SQ SCH (22:36)
[2021-11-01 00:22] VITALS: BP 110/53
[2021-11-01 04:52] VITALS: BP 112/77
[2021-11-01] MEDS: VANCOMYCIN 0.75 GM in IV D5W 250 ML IV SCH ×2 (05:45→17:09)
[2021-11-01 06:01] LABS: BASOPHILS # (AUTO) 0.1 K/uL (0.0-0.2); BASOPHILS % (AUTO) 0.8 % (0.0-2.0); EOSINOPHILS % (AUTO) 3.3 % (0.0-6.0); HEMATOCRIT 30 % (33-45); HEMOGLOBIN 9.8 g/dL (11.5-14.8); LYMPHOCYTES # (AUTO) 2.1 K/uL (0.8-4.8); MEAN CORPUSCULAR HGB CONC 33 g/dl (31.0-36.0); MEAN CORPUSCULAR VOLUME 111 fL (82-100); MONOCYTES # (AUTO) 1.2 K/uL (0.1-1.30); MONOCYTES % (AUTO) 7.2 % (2.0-12.0); NEUTROPHILS # (AUTO) 13.2 K/uL (1.8-8.9); NEUTROPHILS % (AUTO) 76.7 % (43.0-81.0); PLATELET COUNT (AUTO) 211 K/uL (150-450); RED BLOOD CELL COUNT(AUTO) 2.69 MIL/uL (4.0-5.2); WHITE BLOOD COUNT (AUTO) 17.2 K/uL (4.3-11.0)
[2021-11-01 06:09] LABS: CALCIUM, SERUM 8.2 mg/dL (8.5-10.1); MAGNESIUM 1.9 mg/dL (1.8-2.4); PHOSPHORUS 2.3 mg/dL (2.5-4.9); POTASSIUM 4.3 mmol/L (3.5-5.1)
[2021-11-01 07:50] LABS: EOSINOPHILS % (MANUAL) 5 % (0-4); LYMPHOCYTES % (MANUAL) 16 % (16-48); MONOCYTES % (MANUAL) 11 % (0-11.0); NEUTROPHILS % (MANUAL) 68 (42-76)
[2021-11-01 08:00] VITALS: BP 152/88
[2021-11-01] MEDS: PANTOPRAZOLE 40 MG VIAL IV SCH (08:52)
[2021-11-01] MEDS: MEROPENEM 1 G in IV NS 0.9% 100 ML IV SCH ×2 (10:29→22:06)
[2021-11-01] MEDS ORDERED: Sodium Phosphate 15 MMOL in IV NS 0.9% 245 ML IV SCH (12:00)
[2021-11-01 16:00] VITALS: BP 113/69
[2021-11-01 20:00] VITALS: BP 128/73
[2021-11-01] MEDS: MEMANTINE HCL 5 MG TABLET PO SCH (21:58)
[2021-11-01] MEDS: ENOXAPARIN SODIUM 40 MG/0.4 ML DISP.SYRIN SQ SCH (22:00)
[2021-11-02] MEDS: VANCOMYCIN 0.75 GM in IV D5W 250 ML IV SCH (05:26)
[2021-11-02 06:00] LABS: BASOPHILS # (AUTO) 0.1 K/uL (0.0-0.2); BASOPHILS % (AUTO) 0.6 % (0.0-2.0); EOSINOPHILS % (AUTO) 6.3 % (0.0-6.0); HEMATOCRIT 28 % (33-45); LYMPHOCYTES % (AUTO) 14.2 % (20.0-44.0); MEAN CORPUSCULAR HGB CONC 32 g/dl (31.0-36.0); MEAN CORPUSCULAR VOLUME 113 fL (82-100); MONOCYTES # (AUTO) 1.1 K/uL (0.1-1.30); MONOCYTES % (AUTO) 8.1 % (2.0-12.0); NEUTROPHILS # (AUTO) 9.8 K/uL (1.8-8.9); NEUTROPHILS % (AUTO) 70.8 % (43.0-81.0); PLATELET COUNT (AUTO) 199 K/uL (150-450); RED BLOOD CELL COUNT(AUTO) 2.49 MIL/uL (4.0-5.2); WHITE BLOOD COUNT (AUTO) 13.8 K/uL (4.3-11.0)
[2021-11-02 08:00] VITALS: BP 164/100
[2021-11-02 08:04] LABS: CALCIUM, SERUM 8.5 mg/dL (8.5-10.1); PHOSPHORUS 2.8 mg/dL (2.5-4.9)
[2021-11-02] MEDS: MULTIVITAMINS,THERAGRAN 1 UDTAB TABLET PO SCH (08:17)
[2021-11-02] MEDS: THIAMINE HCL 100 MG TABLET PO SCH (08:17)
[2021-11-02] MEDS: DONEPEZIL 5 MG TABLET PO SCH (08:17)
[2021-11-02] MEDS: PANTOPRAZOLE 40 MG VIAL IV SCH (08:17)
[2021-11-02] MEDS: FUROSEMIDE 40 MG TABLET PO SCH (08:17)
[2021-11-02] MEDS: MEROPENEM 1 G in IV NS 0.9% 100 ML IV SCH ×2 (10:54→22:31)
[2021-11-02 13:54] LABS: ALBUMIN 1.5 g/dL (3.4-5.0); BILIRUBIN,TOTAL 1.5 mg/dL (0.2-1.0); TOTAL PROTEIN, SERUM 5.2 g/dL (6.4-8.2)
[2021-11-02] MEDS ORDERED: IV D5W 1,000 ML IV ONE (14:00)
[2021-11-02 16:00] VITALS: BP 137/100
[2021-11-02 20:00] VITALS: BP 135/86
[2021-11-02] MEDS: MEMANTINE HCL 5 MG TABLET PO SCH (22:27)
[2021-11-02] MEDS: ENOXAPARIN SODIUM 40 MG/0.4 ML DISP.SYRIN SQ SCH (22:27)
[2021-11-03 06:36] LABS: BASOPHILS # (AUTO) 0.2 K/uL (0.0-0.2); BASOPHILS % (AUTO) 1.2 % (0.0-2.0); EOSINOPHILS % (AUTO) 9.2 % (0.0-6.0); HEMATOCRIT 24 % (33-45); LYMPHOCYTES # (AUTO) 1.8 K/uL (0.8-4.8); LYMPHOCYTES % (AUTO) 13.9 % (20.0-44.0); MEAN CORPUSCULAR HGB CONC 33 g/dl (31.0-36.0); MEAN CORPUSCULAR VOLUME 111 fL (82-100); MONOCYTES % (AUTO) 8.1 % (2.0-12.0); NEUTROPHILS # (AUTO) 8.7 K/uL (1.8-8.9); NEUTROPHILS % (AUTO) 67.6 % (43.0-81.0); PLATELET COUNT (AUTO) 177 K/uL (150-450); RED BLOOD CELL COUNT(AUTO) 2.19 MIL/uL (4.0-5.2); WHITE BLOOD COUNT (AUTO) 12.9 K/uL (4.3-11.0)
[2021-11-03 08:00] VITALS: BP 136/73
[2021-11-03] MEDS ORDERED: VANCOMYCIN 1 GM in IV D5W 250 ML IV SCH (08:00)
[2021-11-03] MEDS: DONEPEZIL 5 MG TABLET PO SCH (10:05)
[2021-11-03] MEDS: THIAMINE HCL 100 MG TABLET PO SCH (10:05)
[2021-11-03] MEDS: MULTIVITAMINS,THERAGRAN 1 UDTAB TABLET PO SCH (10:05)
[2021-11-03] MEDS: PANTOPRAZOLE 40 MG/PACK PACK PO SCH (10:06)
[2021-11-03] MEDS: FUROSEMIDE 40 MG TABLET PO SCH (10:06)
[2021-11-03 10:20] LABS: CALCIUM, SERUM 7.9 mg/dL (8.5-10.1); CREATININE 1.1 mg/dL (0.6-1.3); MAGNESIUM 1.7 mg/dL (1.8-2.4); PHOSPHORUS 2.3 mg/dL (2.5-4.9); POTASSIUM 3.8 mmol/L (3.5-5.1)
[2021-11-03] MEDS: MEROPENEM 1 G in IV NS 0.9% 100 ML IV SCH ×2 (11:33→23:06)
[2021-11-03] MEDS ORDERED: NEUTRA PHOS 1 POWD.PACKET PO ONE (15:00)
[2021-11-03 16:00] VITALS: BP 133/75
[2021-11-03 20:00] VITALS: BP 101/66
[2021-11-03] MEDS: ENOXAPARIN SODIUM 40 MG/0.4 ML DISP.SYRIN SQ SCH (21:59)
[2021-11-03] MEDS: MEMANTINE HCL 5 MG TABLET PO SCH (22:00)
[2021-11-04] MEDS ORDERED: IV D5W 1,000 ML IV ONE
[2021-11-04] MEDS: Magnesium 1GM/D5W 100ML PREMIX 100 ML IV SCH ×2 (01:17)
[2021-11-04 07:20] LABS: BASOPHILS # (AUTO) 0.1 K/uL (0.0-0.2); BASOPHILS % (AUTO) 0.7 % (0.0-2.0); EOSINOPHILS % (AUTO) 10.5 % (0.0-6.0); HEMATOCRIT 25 % (33-45); HEMOGLOBIN 8.2 g/dL (11.5-14.8); LYMPHOCYTES # (AUTO) 1.5 K/uL (0.8-4.8); MEAN CORPUSCULAR HGB CONC 33 g/dl (31.0-36.0); MEAN CORPUSCULAR VOLUME 111 fL (82-100); MONOCYTES % (AUTO) 8.7 % (2.0-12.0); NEUTROPHILS % (AUTO) 67.1 % (43.0-81.0); PLATELET COUNT (AUTO) 181 K/uL (150-450); RED BLOOD CELL COUNT(AUTO) 2.25 MIL/uL (4.0-5.2); WHITE BLOOD COUNT (AUTO) 11.9 K/uL (4.3-11.0)
[2021-11-04 07:36] LABS: ALANINE AMINOTRANSFERASE 16 U/L (12-78); ALKALINE PHOSPHATASE 128 U/L (46-116); ASPARTATE AMINOTRANSFERASE 48 U/L (15-37); BILIRUBIN,DIRECT 0.8 mg/dL (0.0-0.2); CALCIUM, SERUM 8.1 mg/dL (8.5-10.1); CARBON DIOXIDE 24 mmol/L (21-32); CHLORIDE 118 mmol/L (98-107); CREATININE 1.4 mg/dL (0.6-1.3); GLUCOSE 125 mg/dL (74-106); LIPASE 32 U/L (73-393); MAGNESIUM 2.2 mg/dL (1.8-2.4); PHOSPHORUS 2.6 mg/dL (2.5-4.9); POTASSIUM 3.4 mmol/L (3.5-5.1); SODIUM SERUM 150 mmol/L (136-145); TOTAL PROTEIN, SERUM 4.9 g/dL (6.4-8.2); UREA NITROGEN, BLOOD 12 mg/dL (7-18)
[2021-11-04 07:44] LABS: ALBUMIN 1.3 g/dL (3.4-5.0)
[2021-11-04 08:00] VITALS: BP 121/48
[2021-11-04] MEDS ORDERED: HYDROGEL DRESSING 90 GM TUBE TP PRN (08:00)
[2021-11-04] MEDS: FUROSEMIDE 40 MG TABLET PO SCH (09:20)
[2021-11-04] MEDS: THIAMINE HCL 100 MG TABLET PO SCH (09:20)
[2021-11-04] MEDS: DONEPEZIL 5 MG TABLET PO SCH (09:20)
[2021-11-04] MEDS: MULTIVITAMINS,THERAGRAN 1 UDTAB TABLET PO SCH (09:20)
[2021-11-04] MEDS: PANTOPRAZOLE 40 MG/PACK PACK PO SCH (09:20)
[2021-11-04] MEDS ORDERED: POTASSIUM CHLORIDE 20 MEQ TAB.PRT.SR PO SCH (10:30)
[2021-11-04] MEDS: MEROPENEM 1 G in IV NS 0.9% 100 ML IV SCH ×2 (11:03→22:30)
[2021-11-04] MEDS: HYDROGEL DRESSING 90 GM TUBE TP SCH (11:03)
[2021-11-04 16:00] VITALS: BP 152/63
[2021-11-04 20:00] VITALS: BP 125/62
[2021-11-04] MEDS: MEMANTINE HCL 5 MG TABLET PO SCH (21:35)
[2021-11-04] MEDS: ENOXAPARIN SODIUM 40 MG/0.4 ML DISP.SYRIN SQ SCH (21:37)
[2021-11-05 08:00] VITALS: BP 135/73
[2021-11-05] MEDS: THIAMINE HCL 100 MG TABLET PO SCH (08:42)
[2021-11-05] MEDS: MULTIVITAMINS,THERAGRAN 1 UDTAB TABLET PO SCH (08:42)
[2021-11-05] MEDS: DONEPEZIL 5 MG TABLET PO SCH (08:42)
[2021-11-05] MEDS: FUROSEMIDE 40 MG TABLET PO SCH (08:42)
[2021-11-05] MEDS: PANTOPRAZOLE 40 MG/PACK PACK PO SCH (08:42)
[2021-11-05] MEDS: HYDROGEL DRESSING 90 GM TUBE TP SCH (08:43)
[2021-11-05 08:55] LABS: BASOPHILS # (AUTO) 0.1 K/uL (0.0-0.2); EOSINOPHILS % (AUTO) 11.4 % (0.0-6.0); HEMATOCRIT 25 % (33-45); HEMOGLOBIN 8.2 g/dL (11.5-14.8); LYMPHOCYTES # (AUTO) 1.2 K/uL (0.8-4.8); LYMPHOCYTES % (AUTO) 11.8 % (20.0-44.0); MEAN CORPUSCULAR HGB CONC 33 g/dl (31.0-36.0); MEAN CORPUSCULAR VOLUME 110 fL (82-100); MONOCYTES # (AUTO) 0.9 K/uL (0.1-1.30); MONOCYTES % (AUTO) 8.9 % (2.0-12.0); NEUTROPHILS % (AUTO) 66.9 % (43.0-81.0); PLATELET COUNT (AUTO) 181 K/uL (150-450); RED BLOOD CELL COUNT(AUTO) 2.26 MIL/uL (4.0-5.2); WHITE BLOOD COUNT (AUTO) 10.5 K/uL (4.3-11.0)
[2021-11-05 09:15] LABS: BILIRUBIN,DIRECT 0.7 mg/dL (0.0-0.2); CALCIUM, SERUM 7.8 mg/dL (8.5-10.1); CREATININE 1.2 mg/dL (0.6-1.3); MAGNESIUM 1.8 mg/dL (1.8-2.4); PHOSPHORUS 2.8 mg/dL (2.5-4.9); POTASSIUM 3.5 mmol/L (3.5-5.1); TOTAL PROTEIN, SERUM 4.7 g/dL (6.4-8.2)
[2021-11-05 09:31] LABS: ALBUMIN 1.2 g/dL (3.4-5.0)
[2021-11-05] MEDS: MEROPENEM 1 G in IV NS 0.9% 100 ML IV SCH ×2 (11:33→22:59)
[2021-11-05 16:00] VITALS: BP 117/64
[2021-11-05] MEDS: PROSOURCE / PROSTAT (PYXIS) 30 ML UDC PO SCH ×2 (16:13→18:00)
[2021-11-05 20:00] VITALS: BP 116/49
[2021-11-05] MEDS: ENOXAPARIN SODIUM 40 MG/0.4 ML DISP.SYRIN SQ SCH (21:35)
[2021-11-05] MEDS: MEMANTINE HCL 5 MG TABLET PO SCH (21:36)
[2021-11-05] MEDS ORDERED: Potassium Chloride 20 MEQ in IV D5W 1,000 ML IV ONE (22:30)
[2021-11-06] MEDS ORDERED: IV PREMIX D5W + KCL 1,000 ML IV ONE (00:22)
[2021-11-06 08:11] VITALS: BP 128/61
[2021-11-06] MEDS: FUROSEMIDE 40 MG TABLET PO SCH (10:11)
[2021-11-06] MEDS: THIAMINE HCL 100 MG TABLET PO SCH (10:11)
[2021-11-06] MEDS: DONEPEZIL 5 MG TABLET PO SCH (10:11)
[2021-11-06] MEDS: PANTOPRAZOLE 40 MG/PACK PACK PO SCH (10:11)
[2021-11-06] MEDS: MULTIVITAMINS,THERAGRAN 1 UDTAB TABLET PO SCH (10:11)
[2021-11-06] MEDS: PROSOURCE / PROSTAT (PYXIS) 30 ML UDC PO SCH ×3 (10:11→17:33)
[2021-11-06] MEDS: MEROPENEM 1 G in IV NS 0.9% 100 ML IV SCH ×2 (11:39→22:05)
[2021-11-06] MEDS: HYDROGEL DRESSING 90 GM TUBE TP SCH (13:55)
[2021-11-06 16:07] VITALS: BP 106/51
[2021-11-06 20:00] VITALS: BP 107/50
[2021-11-06] MEDS: ENOXAPARIN SODIUM 40 MG/0.4 ML DISP.SYRIN SQ SCH (21:11)
[2021-11-06] MEDS: MEMANTINE HCL 5 MG TABLET PO SCH (21:12)
[2021-11-07 06:33] LABS: BASOPHILS # (AUTO) 0.1 K/uL (0.0-0.2); BASOPHILS % (AUTO) 0.8 % (0.0-2.0); EOSINOPHILS % (AUTO) 12.3 % (0.0-6.0); HEMATOCRIT 27 % (33-45); LYMPHOCYTES # (AUTO) 1.6 K/uL (0.8-4.8); LYMPHOCYTES % (AUTO) 14.6 % (20.0-44.0); MEAN CORPUSCULAR HGB CONC 33 g/dl (31.0-36.0); MEAN CORPUSCULAR VOLUME 111 fL (82-100); MONOCYTES # (AUTO) 1.5 K/uL (0.1-1.30); MONOCYTES % (AUTO) 13.6 % (2.0-12.0); NEUTROPHILS # (AUTO) 6.4 K/uL (1.8-8.9); NEUTROPHILS % (AUTO) 58.7 % (43.0-81.0); PLATELET COUNT (AUTO) 165 K/uL (150-450); RED BLOOD CELL COUNT(AUTO) 2.45 MIL/uL (4.0-5.2); WHITE BLOOD COUNT (AUTO) 10.9 K/uL (4.3-11.0)
[2021-11-07 07:42] LABS: CALCIUM, SERUM 8.3 mg/dL (8.5-10.1); CREATININE 1.2 mg/dL (0.6-1.3); POTASSIUM 3.7 mmol/L (3.5-5.1)
[2021-11-07 08:00] VITALS: BP 126/60
[2021-11-07] MEDS: MULTIVITAMINS,THERAGRAN 1 UDTAB TABLET PO SCH (08:34)
[2021-11-07] MEDS: PANTOPRAZOLE 40 MG/PACK PACK PO SCH (08:34)
[2021-11-07] MEDS: FUROSEMIDE 40 MG TABLET PO SCH (08:34)
[2021-11-07] MEDS: DONEPEZIL 5 MG TABLET PO SCH (08:35)
[2021-11-07] MEDS: THIAMINE HCL 100 MG TABLET PO SCH (08:35)
[2021-11-07] MEDS: PROSOURCE / PROSTAT (PYXIS) 30 ML UDC PO SCH ×3 (09:42→17:25)
[2021-11-07] MEDS: HYDROGEL DRESSING 90 GM TUBE TP SCH (09:42)
[2021-11-07] MEDS: MEROPENEM 1 G in IV NS 0.9% 100 ML IV SCH ×2 (11:40→22:54)
[2021-11-07 16:00] VITALS: BP 122/63
[2021-11-07 20:00] VITALS: BP 135/56
[2021-11-07] MEDS: MEMANTINE HCL 5 MG TABLET PO SCH (21:30)
[2021-11-07] MEDS: ENOXAPARIN SODIUM 40 MG/0.4 ML DISP.SYRIN SQ SCH (21:30)
[2021-11-08 06:52] LABS: BASOPHILS # (AUTO) 0.1 K/uL (0.0-0.2); BASOPHILS % (AUTO) 0.7 % (0.0-2.0); EOSINOPHILS % (AUTO) 14.4 % (0.0-6.0); HEMATOCRIT 25 % (33-45); HEMOGLOBIN 8.3 g/dL (11.5-14.8); LYMPHOCYTES # (AUTO) 1.5 K/uL (0.8-4.8); LYMPHOCYTES % (AUTO) 15.9 % (20.0-44.0); MEAN CORPUSCULAR HGB CONC 33 g/dl (31.0-36.0); MEAN CORPUSCULAR VOLUME 110 fL (82-100); MONOCYTES # (AUTO) 1.3 K/uL (0.1-1.30); MONOCYTES % (AUTO) 13.8 % (2.0-12.0); NEUTROPHILS # (AUTO) 5.2 K/uL (1.8-8.9); NEUTROPHILS % (AUTO) 55.2 % (43.0-81.0); PLATELET COUNT (AUTO) 148 K/uL (150-450); RED BLOOD CELL COUNT(AUTO) 2.27 MIL/uL (4.0-5.2); WHITE BLOOD COUNT (AUTO) 9.5 K/uL (4.3-11.0)
[2021-11-08 07:21] LABS: CALCIUM, SERUM 8.1 mg/dL (8.5-10.1); CREATININE 1.2 mg/dL (0.6-1.3); MAGNESIUM 1.8 mg/dL (1.8-2.4); PHOSPHORUS 3.1 mg/dL (2.5-4.9)
[2021-11-08 08:27] VITALS: BP_SYST 134; BP_SYST 94; BP_DIAS 48; BP_DIAS 52
[2021-11-08] MEDS: PROSOURCE / PROSTAT (PYXIS) 30 ML UDC PO SCH ×2 (08:51→12:25)
[2021-11-08] MEDS: DONEPEZIL 5 MG TABLET PO SCH (08:51)
[2021-11-08] MEDS: FUROSEMIDE 40 MG TABLET PO SCH (08:51)
[2021-11-08] MEDS: MULTIVITAMINS,THERAGRAN 1 UDTAB TABLET PO SCH (08:51)
[2021-11-08] MEDS: PANTOPRAZOLE 40 MG/PACK PACK PO SCH (08:51)
[2021-11-08] MEDS: THIAMINE HCL 100 MG TABLET PO SCH (08:51)
[2021-11-08] MEDS: HYDROGEL DRESSING 90 GM TUBE TP SCH (08:52)
[2021-11-08] MEDS ORDERED: QUETIAPINE FUMARATE 25 MG TABLET PO PRN (10:00)
[2021-11-08] MEDS ORDERED: LORAZEPAM 0.5 MG TABLET PO PRN (10:00)
[2021-11-08] MEDS ORDERED: MEMANTINE HCL 5 MG TABLET PO SCH (10:00)
[2021-11-08] MEDS: MEROPENEM 1 G in IV NS 0.9% 100 ML IV SCH (11:06)
[2021-11-08] MEDS ORDERED: IV D5W 1,000 ML IV PRN (13:30)
[2021-11-08] MEDS ORDERED: Hydrogel Dressing TP (13:43)
[2021-11-08] MEDS ORDERED: Quetiapine Fumarate PO (13:46)
[2021-11-08] MEDS ORDERED: MEMA5TAB PO (13:46)
[2021-11-08] MEDS ORDERED: Prosource PO (13:46)
[2021-11-08] MEDS ORDERED: Lorazepam PO (13:46)
[2021-11-08] MEDS ORDERED: MERO1VIA23 IV (13:46)
== END 2021-11-08 17:40 | DRG 871 ==
LOC: ER 09:51 → TELE 20:31 → TRANSITION 10-29 06:41 → TELE 10-29 16:48 → MED 11-01 20:42
PROVIDERS: ADMIT Nurse Practitioner Acute Care; ATTEND Nurse Practitioner Family
PROC: 05H933Z Insertion of Infusion Device into Right Brachial Vein, Percutaneous Approach (ICD-10-PCS; principal; 2021-10-30)
PROC: 05HC33Z Insertion of Infusion Device into Left Basilic Vein, Percutaneous Approach (ICD-10-PCS; 2021-11-03)
PROC: 05HC33Z Insertion of Infusion Device into Left Basilic Vein, Percutaneous Approach (ICD-10-PCS; 2021-11-07)
DX: A41.01 Sepsis due to Methicillin susceptible Staphylococcus aureus (principal); L89.223 Pressure ulcer of left hip, stage 3; R65.21 Severe sepsis with septic shock; I21.A1 Myocardial infarction type 2; G93.41 Metabolic encephalopathy; K81.0 Acute cholecystitis; E87.0 Hyperosmolality and hypernatremia; N39.0 Urinary tract infection, site not specified; E87.2 Acidosis; J98.11 Atelectasis; R18.8 Other ascites; K83.09 Other cholangitis; F03.91 Unspecified dementia, unspecified severity, with behavioral disturbance; K74.60 Unspecified cirrhosis of liver; K21.9 Gastro-esophageal reflux disease without esophagitis; I10 Essential (primary) hypertension; Z20.822 Contact with and (suspected) exposure to COVID-19; Z98.890 Other specified postprocedural states; Z88.2 Allergy status to sulfonamides; Z88.0 Allergy status to penicillin; Z79.899 Other long term (current) drug therapy; Z87.440 Personal history of urinary (tract) infections; F10.10 Alcohol abuse, uncomplicated; Y90.0 Blood alcohol level of less than 20 mg/100 ml; F32.A Depression, unspecified; Z96.651 Presence of right artificial knee joint; Z66 Do not resuscitate; M19.90 Unspecified osteoarthritis, unspecified site; E80.6 Other disorders of bilirubin metabolism; E88.09 Other disorders of plasma-protein metabolism, not elsewhere classified; I48.91 Unspecified atrial fibrillation; E86.0 Dehydration; K70.9 Alcoholic liver disease, unspecified; K57.10 Diverticulosis of small intestine without perforation or abscess without bleeding; I67.2 Cerebral atherosclerosis; K76.0 Fatty (change of) liver, not elsewhere classified; E83.42 Hypomagnesemia; E87.6 Hypokalemia; B96.4 Proteus (mirabilis) (morganii) as the cause of diseases classified elsewhere; R79.89 Other specified abnormal findings of blood chemistry; K83.8 Other specified diseases of biliary tract
CPT/HCPCS: 36410; 36415; 70450-TC; 71045-TC; 76705-TC; 80048-TC; 80053-TC; 80061-TC; 80076-TC; 80202-TC; 81001; 82140-TC; 83540-TC; 83605-TC; 83690-TC; 83735-TC; 84100-TC; 84443-TC; 84484-TC; 85025-TC; 85730-TC; 87040-TC; 87081-TC; 87086-TC; 87186-TC; 92521; 92526; 93307-TC; A6248; A9563; C9113; C9803; G0378; G0480; J0282; J0692; J1160; J1650; J2185; J2270; J3370; J3475; J3480; J3490; J7030; J7050; J7060; J7070; J7120; Q9963; Q9967